=== PATIENT | female | born 1950 | race Caucasian/White ===

== ENCOUNTER 2017-03-01 10:15 | Inpatient (IN) | payer MEDICARE, OTHER ==
[~2017-03-01] VITALS: Ht 167.6 cm; Wt 70.6 kg
[~2017-03-01 10:15] MED LIST: ALBU3IS INH; ALBU90OI INH; ALBU90OI6 INH; ASPI325EC PO; ASPI81CH PO; ATOR80 PO; B-1100 MG PO; B-COMPLEX PLUS1 EACH PO; BUDE6HFA INH; BUPR150ER; BUPR150ER PO; CENTRUM SILVER1 EAC2 PO; CEPH500 PO; CHLO25 PO; CILO50 PO; CLOP75 PO; CYCL10 PO; Cyclobenzaprine5 MG PO; DICL75ER PO; FOLI1 PO; FURO20 PO; HYDR1TAB94; LEVSOD50 PO; METHI10; METO25 PO; NIFE30ER PO; OXYACE5T PO; PLETAL100 MG PO; Prinivil10 MG; THIA100 PO; TRAM50 PO; VARE1 PO; VITAMIN D31000 UNIT PO; [UNRECOGNIZED DRUG - REMARK]
[2017-03-01] MEDS ORDERED: BUDE6HFA INH (11:59)
[2017-03-01] MEDS ORDERED: Methimazole5 MG PO (12:00)
[2017-03-02 04:34] LABS: BASOPHILS ABSOLUTE AUTO 0.03 K/mm3 (0.00-0.23); BASOPHILS PERCENT AUTO 0 % (0-2); EOSINOPHILS ABSOLUTE AUTO 0.07 K/mm3 (0.00-0.68); EOSINOPHILS PERCENT AUTO 1 % (0-6); Hematocrit 33.8 % (33.0-51.0); Hemoglobin 11.3 g/dL (11.5-16.0); IMMATURE GRAN ABSOLUTE AUTO 0.02 K/mm3 (0.00-0.10); IMMATURE GRAN PERCENT AUTO 0 % (0-1); LYMPHOCYTES PERCENT AUTO 28 % (21-46); MONOCYTES ABSOLUTE AUTO 0.76 K/mm3 (0.16-1.47); MONOCYTES PERCENT AUTO 6 % (4-13); Mean Corpuscular HGB 32.8 pg (26.0-34.0); Mean Corpuscular HGB Conc 33.4 g/dL (31.5-36.5); Mean Corpuscular Volume 98 fL (80-100); Mean Platelet Volume 9.6 fL (9.1-12.4); NEUTROPHILS ABSOLUTE AUTO 8.28 K/mm3 (1.96-9.15); NEUTROPHILS PERCENT AUTO 65 % (41-73); Platelet Count 304 K/mm3 (150-400); RDW Coefficient Variation 13.8 % (11.7-14.2); RDW Standard Deviation 49.6 fL (35.1-46.3); Red Blood Cell Count 3.44 M/mm3 (3.80-5.20); White Blood Cell Count 12.66 K/mm3 (4.00-11.30)
[2017-03-02 05:01] LABS: Anion Gap 9 mmol/L (6-16); Blood Urea Nitrogen 7 mg/dL (8-24); CO2, Blood 22 mmol/L (21-32); Chloride, Blood 112 mmol/L (98-108); Creatinine, Blood 0.59 mg/dL (0.40-1.00); Glomerular Filtration Rate >60 (60-); Glucose, Blood 101 mg/dL (70-99); Potassium, Blood 3.5 mmol/L (3.5-5.5); Sodium, Blood 143 mmol/L (136-145)
[2017-03-02] MEDS ORDERED: CLOP75 PO (13:36)
[2017-06-09] MEDS ORDERED: FOLI1 PO (09:00)
[2017-06-09] MEDS ORDERED: METHI10 PO (09:00)
[2017-06-09] MEDS ORDERED: TOCO1000 PO (09:01)
[2017-06-09] MEDS ORDERED: ASCO500 PO (09:01)
[2017-06-09] MEDS ORDERED: ERGO400 PO (09:02)
== END 2017-03-02 14:50 | disposition home or self-care (01) | DRG 254 ==
LOC: MHTC 10:15 → ICUW 14:08 → MHTC 16:57 → ICUW 03-02 14:50
PROVIDERS: Internal Medicine Interventional Cardiology
PROC: 047M3D1 Dilation of Right Popliteal Artery with Intraluminal Device, using Drug-Coated Balloon, Percutaneous Approach (ICD-10-PCS; principal; 2017-03-01)
PROC: 047K3D6 (ICD-10-PCS; principal; 2017-03-01)
PROC: 047P3Z1 Dilation of Right Anterior Tibial Artery using Drug-Coated Balloon, Percutaneous Approach (ICD-10-PCS; principal; 2017-03-01)
DX: I70.245 Atherosclerosis of native arteries of left leg with ulceration of other part of foot (principal); J44.9 Chronic obstructive pulmonary disease, unspecified; E78.5 Hyperlipidemia, unspecified; F17.210 Nicotine dependence, cigarettes, uncomplicated; I10 Essential (primary) hypertension; L08.89 Other specified local infections of the skin and subcutaneous tissue; Z23 Encounter for immunization
CPT/HCPCS: 36415; 37227; 37229; 37232; 37233; 75710; 75774; 76937; 80048; 85025; 85347; 85610; 85730; 94640; 94760; 99152; 99153; C1725; C1757; C1769; C1876; C1885; C1887; C1894; C2623; G0008; J0461; J1644; J2060; J2250; J2720; J3010; J7030; J7040; Q2038; Q9967

== ENCOUNTER 2017-03-15 07:45 | Day surgery (SDC) | payer MEDICARE, OTHER ==
[~2017-03-15 07:45] MED LIST changes: +Methimazole5 MG PO
[2017-06-09] MEDS ORDERED: FOLI1 PO (09:00)
[2017-06-09] MEDS ORDERED: METHI10 PO (09:00)
[2017-06-09] MEDS ORDERED: TOCO1000 PO (09:01)
[2017-06-09] MEDS ORDERED: ASCO500 PO (09:01)
[2017-06-09] MEDS ORDERED: ERGO400 PO (09:02)
== END 2017-03-15 09:36 | disposition home or self-care (01) ==
LOC: WOUND 07:45
PROC: 0HBMXZZ Excision of Right Foot Skin, External Approach (ICD-10-PCS; principal; 2017-03-15)
DX: Z48.00 Encounter for change or removal of nonsurgical wound dressing (principal); I70.201 Unspecified atherosclerosis of native arteries of extremities, right leg; L97.511 Non-pressure chronic ulcer of other part of right foot limited to breakdown of skin; J43.9 Emphysema, unspecified; I10 Essential (primary) hypertension; Z88.5 Allergy status to narcotic agent; Z87.891 Personal history of nicotine dependence
CPT/HCPCS: G0463

== ENCOUNTER 2017-03-22 00:33 | Day surgery (SDC) | payer MEDICARE, OTHER ==
[2017-06-09] MEDS ORDERED: FOLI1 PO (09:00)
[2017-06-09] MEDS ORDERED: METHI10 PO (09:00)
[2017-06-09] MEDS ORDERED: ASCO500 PO (09:01)
[2017-06-09] MEDS ORDERED: TOCO1000 PO (09:01)
[2017-06-09] MEDS ORDERED: ERGO400 PO (09:02)
== END 2017-03-22 22:45 | disposition home or self-care (01) ==
LOC: WOUND 00:33
PROC: 0HBMXZZ Excision of Right Foot Skin, External Approach (ICD-10-PCS; principal; 2017-03-22)
DX: Z48.00 Encounter for change or removal of nonsurgical wound dressing (principal); L97.812 Non-pressure chronic ulcer of other part of right lower leg with fat layer exposed; I70.201 Unspecified atherosclerosis of native arteries of extremities, right leg; J43.9 Emphysema, unspecified; I10 Essential (primary) hypertension; I73.9 Peripheral vascular disease, unspecified
CPT/HCPCS: G0463

== ENCOUNTER 2017-03-29 10:00 | Day surgery (SDC) | payer MEDICARE, OTHER ==
[2017-06-09] MEDS ORDERED: FOLI1 PO (09:00)
[2017-06-09] MEDS ORDERED: METHI10 PO (09:00)
[2017-06-09] MEDS ORDERED: TOCO1000 PO (09:01)
[2017-06-09] MEDS ORDERED: ASCO500 PO (09:01)
[2017-06-09] MEDS ORDERED: ERGO400 PO (09:02)
== END 2017-03-29 11:10 | disposition home or self-care (01) ==
LOC: WOUND 10:00
DX: Z48.00 Encounter for change or removal of nonsurgical wound dressing (principal); I70.201 Unspecified atherosclerosis of native arteries of extremities, right leg; J43.9 Emphysema, unspecified; I10 Essential (primary) hypertension; I73.9 Peripheral vascular disease, unspecified; L97.812 Non-pressure chronic ulcer of other part of right lower leg with fat layer exposed
CPT/HCPCS: G0463

== ENCOUNTER 2017-06-13 08:40 | Day surgery (SDC) | payer MEDICARE, OTHER ==
[~2017-06-13] VITALS: Ht 167.6 cm; Wt 74.4 kg
[~2017-06-13 08:40] MED LIST changes: +ASCO500 PO; +ERGO400 PO; +METHI10 PO; +TOCO1000 PO
== END 2017-06-13 22:57 | disposition home or self-care (01) ==
LOC: ORSCMMR 08:40 → ORD 10:00 → ORSCMMR 22:57
PROVIDERS: Internal Medicine Gastroenterology
PROC: 0DBK8ZX Excision of Ascending Colon, Via Natural or Artificial Opening Endoscopic, Diagnostic (ICD-10-PCS; principal; 2017-06-13 10:00)
DX: Z12.11 Encounter for screening for malignant neoplasm of colon (principal); D12.2 Benign neoplasm of ascending colon; K64.8 Other hemorrhoids; E05.90 Thyrotoxicosis, unspecified without thyrotoxic crisis or storm; K57.30 Diverticulosis of large intestine without perforation or abscess without bleeding; I10 Essential (primary) hypertension; J44.9 Chronic obstructive pulmonary disease, unspecified; F17.210 Nicotine dependence, cigarettes, uncomplicated; Z79.01 Long term (current) use of anticoagulants; Z79.82 Long term (current) use of aspirin; Z79.899 Other long term (current) drug therapy
CPT/HCPCS: 88305; J7120

== ENCOUNTER → 2017-07-20 | Outpatient (CLI) | payer MEDICARE, OTHER ==
[2017-07-20 17:49] LABS: BASOPHILS ABSOLUTE AUTO 0.06 K/mm3 (0.00-0.23); BASOPHILS PERCENT AUTO 1 % (0-2); EOSINOPHILS ABSOLUTE AUTO 0.25 K/mm3 (0.00-0.68); EOSINOPHILS PERCENT AUTO 3 % (0-6); Hematocrit 37.5 % (33.0-51.0); Hemoglobin 12.3 g/dL (11.5-16.0); IMMATURE GRAN ABSOLUTE AUTO 0.01 K/mm3 (0.00-0.10); IMMATURE GRAN PERCENT AUTO 0 % (0-1); LYMPHOCYTES ABSOLUTE AUTO 4.05 K/mm3 (0.84-5.20); LYMPHOCYTES PERCENT AUTO 53 % (21-46); MONOCYTES ABSOLUTE AUTO 0.52 K/mm3 (0.16-1.47); MONOCYTES PERCENT AUTO 7 % (4-13); Mean Corpuscular HGB 32.4 pg (26.0-34.0); Mean Corpuscular HGB Conc 32.8 g/dL (31.5-36.5); Mean Corpuscular Volume 99 fL (80-100); Mean Platelet Volume 10.1 fL (9.1-12.4); NEUTROPHILS ABSOLUTE AUTO 2.78 K/mm3 (1.96-9.15); NEUTROPHILS PERCENT AUTO 36 % (41-73); Platelet Count 337 K/mm3 (150-400); RDW Coefficient Variation 13.7 % (11.7-14.2); RDW Standard Deviation 50.5 fL (35.1-46.3); White Blood Cell Count 7.67 K/mm3 (4.00-11.30)
[2017-07-20 18:44] LABS: Free Thyroxine 0.92 ng/dL (0.70-1.60)
[2017-07-20 18:48] LABS: Alanine Aminotransfer (ALT/SGP 28 U/L (12-78); Albumin, Blood 3.9 g/dL (3.4-5.0); Albumin/Globulin Ratio 1.3 (0.8-1.8); Alk Phos 86 U/L (50-136); Anion Gap 7 mmol/L (6-16); Aspartate Aminotrans (AST/SGOT 20 U/L (12-37); Bilirubin, Total 0.4 mg/dL (0.1-1.0); Blood Urea Nitrogen 16 mg/dL (8-24); Bun/Creatinine Ratio 19.1 (12.0-20.0); CHOL/HDL RATIO 1.8; CO2, Blood 25 mmol/L (21-32); Calcium, Blood 9.2 mg/dL (8.5-10.1); Chloride, Blood 108 mmol/L (98-108); Cholesterol 191 mg/dL (50-200); Creatinine, Blood 0.84 mg/dL (0.40-1.00); Glomerular Filtration Rate >60 (60-); Glucose, Blood 79 mg/dL (70-99); HDL Cholesterol 104 mg/dL (>39); LDL/HDL RATIO 0.7; Low Density Lipoprotein Chol 72 mg/dL (0-110); Potassium, Blood 4.4 mmol/L (3.5-5.5); Sodium, Blood 140 mmol/L (136-145); Total Protein, Blood 6.9 g/dL (6.4-8.2); Triglycerides 76 mg/dL (30-160); Triiodothyronine, Free 2.68 pg/mL (2.18-3.98); Very Low Density Lipoprot Chol 15 mg/dL (6-32)
== END | disposition home or self-care (01) ==
LOC: LAB SHORT 08:23 → LAB 08:23
PROVIDERS: Nurse Practitioner Adult Health
DX: E78.5 Hyperlipidemia, unspecified (principal); E05.90 Thyrotoxicosis, unspecified without thyrotoxic crisis or storm; I10 Essential (primary) hypertension
CPT/HCPCS: 80053; 80061; 84439; 84443; 84481; 85025

== ENCOUNTER 2019-01-21 06:11 | Emergency (ER) | payer MEDICARE, OTHER ==
[~2019-01-21] VITALS: Ht 167.6 cm; Wt 72.6 kg
[~2019-01-21 06:11] MED LIST changes: +Centrum Silver1 EAC1 PO; -Prinivil10 MG; +Prinivil10 MG PO
[2019-01-21] MEDS ORDERED: CYCL10 PO (08:03)
== END 2019-01-21 08:15 | disposition home or self-care (01) ==
LOC: ER 06:11
DX: S16.1XXA Strain of muscle, fascia and tendon at neck level, initial encounter (principal); J44.9 Chronic obstructive pulmonary disease, unspecified; F17.200 Nicotine dependence, unspecified, uncomplicated; Z88.5 Allergy status to narcotic agent; Z79.899 Other long term (current) drug therapy; Z79.82 Long term (current) use of aspirin; Z79.02 Long term (current) use of antithrombotics/antiplatelets; X58.XXXA Exposure to other specified factors, initial encounter
CPT/HCPCS: 93005; 93010; A9270-GY; J1100

== ENCOUNTER → 2019-03-24 | Outpatient (CLI) | payer MEDICARE, OTHER ==
[2019-03-24 09:40] LABS: BASOPHILS ABSOLUTE AUTO 0.09 K/mm3 (0.00-0.23); BASOPHILS PERCENT AUTO 1 % (0-2); EOSINOPHILS ABSOLUTE AUTO 0.18 K/mm3 (0.00-0.68); EOSINOPHILS PERCENT AUTO 2 % (0-6); Hematocrit 36.1 % (33.0-51.0); Hemoglobin 11.4 g/dL (11.5-16.0); Mean Corpuscular HGB 32.1 pg (26.0-34.0); Mean Corpuscular HGB Conc 31.6 g/dL (31.5-36.5); Mean Corpuscular Volume 102 fL (80-100); Mean Platelet Volume 9.8 fL (9.1-12.4); Platelet Count 471 K/mm3 (150-400); RDW Coefficient Variation 13.6 % (11.7-14.2); RDW Standard Deviation 51.3 fL (35.1-46.3); Red Blood Cell Count 3.55 M/mm3 (3.80-5.20); White Blood Cell Count 11.28 K/mm3 (4.00-11.30)
[2019-03-24 09:41] LABS: IMMATURE GRAN ABSOLUTE AUTO 0.01 K/mm3 (0.00-0.10); IMMATURE GRAN PERCENT AUTO 0 % (0-1); LYMPHOCYTES ABSOLUTE AUTO 7.48 K/mm3 (0.84-5.20); LYMPHOCYTES PERCENT AUTO 66 % (21-46); MONOCYTES ABSOLUTE AUTO 0.46 K/mm3 (0.16-1.47); MONOCYTES PERCENT AUTO 4 % (4-13); NEUTROPHILS ABSOLUTE AUTO 3.06 K/mm3 (1.96-9.15); NEUTROPHILS PERCENT AUTO 27 % (41-73)
[2019-03-24 09:56] LABS: C-REACTIVE PROTEIN, EXT RANGE <0.290 mg/dL (0.000-0.300); Uric Acid, Blood 6.7 mg/dL (2.6-6.0)
== END | disposition home or self-care (01) ==
LOC: LAB 07:58 → LAB SHORT 07:58
PROVIDERS: Nurse Practitioner Family
DX: M79.671 Pain in right foot (principal)
CPT/HCPCS: 84550; 85025; 85651; 86140

== ENCOUNTER → 2019-04-20 | Outpatient (CLI) | payer MEDICARE, OTHER | END | disposition home or self-care (01) | LOC: LAB 12:45 → LAB SHORT 12:45 | DX: L08.9 Local infection of the skin and subcutaneous tissue, unspecified (principal) | CPT/HCPCS: 87070; 87075; 87077; 87186; 87205 ==

== ENCOUNTER 2019-05-09 15:28 | Inpatient (IN) | payer MEDICARE, OTHER ==
[~2019-05-09] VITALS: Ht 167.6 cm; Wt 68.0 kg
[~2019-05-09 15:28] MED LIST changes: -ERGO400 PO; -METHI10 PO; +Tapazole5 MG PO; +VITAMIN E400 UNI1 PO
[2019-05-09] MEDS ORDERED: Daily Multiple1 EACH PO (16:18)
[2019-05-09] MEDS ORDERED: Loratadine10 MG PO (16:21)
[2019-05-09] MEDS ORDERED: ACET500 PO (16:22)
[2019-05-09 16:25] LABS: Hematocrit 37.8 % (33.0-51.0); Mean Corpuscular HGB 32.1 pg (26.0-34.0); Mean Corpuscular HGB Conc 31.7 g/dL (31.5-36.5); Mean Corpuscular Volume 101 fL (80-100); Mean Platelet Volume 9.7 fL (9.1-12.4); Platelet Count 407 K/mm3 (150-400); RDW Coefficient Variation 14.6 % (11.7-14.2); RDW Standard Deviation 54.3 fL (35.1-46.3); Red Blood Cell Count 3.74 M/mm3 (3.80-5.20); White Blood Cell Count 15.44 K/mm3 (4.00-11.30)
[2019-05-09 16:42] LABS: Alanine Aminotransfer (ALT/SGP 25 U/L (12-78); Albumin, Blood 4.2 g/dL (3.4-5.0); Albumin/Globulin Ratio 1.4 (0.8-1.8); Alk Phos 87 U/L (50-136); Anion Gap 7 mmol/L (6-16); Aspartate Aminotrans (AST/SGOT 25 U/L (12-37); Bilirubin, Total 0.3 mg/dL (0.1-1.0); Blood Urea Nitrogen 15 mg/dL (8-24); Bun/Creatinine Ratio 20.3 (12.0-20.0); CO2, Blood 22 mmol/L (21-32); Calcium, Blood 10.1 mg/dL (8.5-10.1); Chloride, Blood 103 mmol/L (98-108); Creatinine, Blood 0.74 mg/dL (0.40-1.00); Globulin, Blood 3.1 g/dL (2.2-4.0); Glomerular Filtration Rate >60 (60-); Glucose, Blood 93 mg/dL (70-99); Potassium, Blood 4.5 mmol/L (3.5-5.5); Sodium, Blood 132 mmol/L (136-145); Total Protein, Blood 7.3 g/dL (6.4-8.2)
[2019-05-09 17:26] LABS: BASOPHILS PERCENT MAN 0 % (0-2); EOSINOPHILS ABSOLUTE MAN 0.15 K/mm3 (0.00-0.68); EOSINOPHILS PERCENT MAN 1 % (0-6); LYMPHOCYTES ABSOLUTE MAN 11.88 K/mm3 (0.84-5.20); LYMPHOCYTES PERCENT MAN 77 % (21-46); MONOCYTES PERCENT MAN 0 % (4-13); NEUTROPHILS ABSOLUTE MAN 3.39 K/mm3 (1.96-9.15); SEG NEUTROPHILS PERCENT MAN 22 % (41-73); TOTAL CELLS COUNTED 100
[2019-05-09 17:53] LABS: International Normalized Ratio 0.95; Prothrombin Time Results 10.2 Sec (9.7-11.5)
--- NOTE | 2019-05-09 20:16 | NUR ---
2009 PT ARRIVED VIA CART TO ROOM AND TRANSFERRED VIA SELF TO BED; RIGHT FOOT #2 DIGIT MEDIAL ASPECT AT TIP NAIL BLACK; RIGHT FOOT #3 DIGIT BLACK; RIGHT ANKLE RED AND HOT TO TOUCH; DENIES NEED FOR PAIN MEDS AT THIS TIME; REPORT RECEIVED FROM CASA DSOUZA VIA ER; HEPARIN AT 20.4 ML/HR VIA PUMP.
[2019-05-10 02:06] LABS: Hematocrit 34.2 % (33.0-51.0); Hemoglobin 10.9 g/dL (11.5-16.0); Mean Corpuscular HGB Conc 31.9 g/dL (31.5-36.5); Mean Corpuscular Volume 100 fL (80-100); Mean Platelet Volume 9.5 fL (9.1-12.4); Platelet Count 383 K/mm3 (150-400); RDW Coefficient Variation 14.7 % (11.7-14.2); Red Blood Cell Count 3.41 M/mm3 (3.80-5.20); White Blood Cell Count 16.21 K/mm3 (4.00-11.30)
[2019-05-10 02:35] LABS: Anion Gap 5 mmol/L (6-16); Blood Urea Nitrogen 12 mg/dL (8-24); Bun/Creatinine Ratio 18.7 (12.0-20.0); CO2, Blood 22 mmol/L (21-32); Calcium, Blood 8.9 mg/dL (8.5-10.1); Chloride, Blood 109 mmol/L (98-108); Creatinine, Blood 0.64 mg/dL (0.40-1.00); Glomerular Filtration Rate >60 (60-); Glucose, Blood 115 mg/dL (70-99); Potassium, Blood 4.2 mmol/L (3.5-5.5); Sodium, Blood 136 mmol/L (136-145)
--- NOTE | 2019-05-10 06:04 | NUR ---
SHIFT SUMMARY: 69 Y/O FEMALE RESTED COMFORTABLY ALL SHIFT; PT C/O RIGHT FOOT PAIN RATED 8/10 WITH NORCO 5/325MG PO GIVEN WITH RELIEF FELT; THIS NURSE INITIALLY APPLIED DRESSING TO RIGHT FOOT FOR COMFORT WHICH PATIENT PROMPTLY REMOVED SHE VOICED IT MADE THE PAIN WORSE; ALERT AND ORIENTED X 4; HEPARIN INFUSING WITH NO S/S BLEEDING; DENIES NAUSEA; BED LOW POSITION WITH CALL LIGHT AT SIDE.
--- NOTE | 2019-05-10 11:20 | NUR ---
Patient is sitting on EoB and alert. Patient tells me about her medical history, her smoking habit and her current worries. I listen empathically, normalize patient's experience and provide pre-surgery prayer. Patient responds well and shows signs of reduced stress. I will continue to remain avialable to patient and family.
--- NOTE | 2019-05-10 13:36 | NUR ---
PT TO CARDIAC CATH TECHNOLOGIST VIA LISA
--- NOTE | 2019-05-10 18:37 | NUR ---
SHIFT NOTE PT ARRIVED AT 1715 FROM GROUP PRACTICE PEDIATRICIAN. PT HAD BALLOONING TO RT FEMORAL ARTERY, FAILED SITE NOTED TO RT TIBIAL, AND SUCCESSFUL SITE TO RT GROIN. SITE IS SOFT AND PALPABLE WITHOUT PAIN NOTED TO PALPATION. NO ACTIVE BLEEDING FROM EITHER SITE. MINX DEVICE USED TO CLOSE GROINACCESS. PT AWAKENS TO VERBAL STIMULI IS DROWSY. RT FOOT IS PINK WITH BLACKENED 3RD TOE WHICH IS NOT NEW, BUT PEDAL PULSES HAVE BEEN RESTORED TO RT FOOT THAT WERE ABSENT PRIOR TO INTERVENTION. PT VERBALIZES THAT SHE DOES NOT HAVE PAIN
--- NOTE | 2019-05-11 01:21 | NUR ---
LATE ENTRY ASSUMPTION OF CARE @ APPROXIMATELY 192. CASA DEAN WAS TOLD BY ASSET MANAGEMENT ANALYST THAT PATIENT WOULD NO LONGER BE ON HEPARIN AND WAS NOT SENT BACK UP WITH PATIENT. PHSYICIAN IN TO SEE PATIENT LATER ON AROUND 2129 AND EXPRESSED THE NEED FOR PATIENT TO BE PLACED BACK ON HEPARIN. HEPARIN CONSULT RE-ORDERED WITH VERIFICATION FROM PHYSICIAN BY CHARGE, RN @ 2154.
[2019-05-11 06:14] LABS: Hematocrit 33.6 % (33.0-51.0); Hemoglobin 10.9 g/dL (11.5-16.0); Mean Corpuscular HGB 32.7 pg (26.0-34.0); Mean Corpuscular HGB Conc 32.4 g/dL (31.5-36.5); Mean Corpuscular Volume 101 fL (80-100); Mean Platelet Volume 9.5 fL (9.1-12.4); Platelet Count 393 K/mm3 (150-400); RDW Coefficient Variation 14.9 % (11.7-14.2); RDW Standard Deviation 55.6 fL (35.1-46.3); Red Blood Cell Count 3.33 M/mm3 (3.80-5.20); White Blood Cell Count 15.56 K/mm3 (4.00-11.30)
[2019-05-11 06:37] LABS: Anion Gap 5 mmol/L (6-16); Blood Urea Nitrogen 7 mg/dL (8-24); Bun/Creatinine Ratio 12.5 (12.0-20.0); CO2, Blood 23 mmol/L (21-32); Calcium, Blood 9.1 mg/dL (8.5-10.1); Chloride, Blood 110 mmol/L (98-108); Creatinine, Blood 0.56 mg/dL (0.40-1.00); Glomerular Filtration Rate >60 (60-); Glucose, Blood 97 mg/dL (70-99); Sodium, Blood 138 mmol/L (136-145)
--- NOTE | 2019-05-11 06:50 | NUR ---
SHIFT SUMMARY A/O, ABLE TO MAKE NEEDS KNOWN. COOPERATIVE WITH CARE. CALLS AND ANSWERS QUESTIONS APPROPRIATELY. C/O PAIN/DISCOMFORT TO R TOE/FOOT; MEDICATED PER EMAR. ATTEMPTED TO GET UP EARLIER IN THE NIGHT; AFTER RETURNING TO BED, NOTED PROTRUDING TO R GROIN WHERE SURGICAL PROCEDURE HAD OCCURED. RN WHOM HAD FOUND HER; PLACED PRESSURE TO SITE FOR 15 MINUTES. BRIM STRETCHER, CALLED AND ALERTED DR. PATEL (SEE PREV LAURENT NOTE). AFTER EPISODE PATIENT APPEARED TO REST. VSS/AFEBRILE. NO OTHER ACUTE CHANGES NOTED. HAS BEEN INSTRUCTED TO ROLL ONLY AND USE OF THE BED SAENZ UNTIL PHYSICIAN ASSESSMENT IN AM. BED IN LOWEST POSITION; ALARM ON. CALL LIGHT WITHIN REACH. REPORT TO ONCOMING RN.
[2019-05-11 07:09] LABS: BASOPHILS PERCENT MAN 0 % (0-2); EOSINOPHILS ABSOLUTE MAN 0.15 K/mm3 (0.00-0.68); EOSINOPHILS PERCENT MAN 1 % (0-6); LYMPHOCYTES ABSOLUTE MAN 8.86 K/mm3 (0.84-5.20); LYMPHOCYTES PERCENT MAN 57 % (21-46); MONOCYTES ABSOLUTE MAN 0.46 K/mm3 (0.16-1.47); MONOCYTES PERCENT MAN 3 % (4-13); NEUTROPHILS ABSOLUTE MAN 6.06 K/mm3 (1.96-9.15); SEG NEUTROPHILS PERCENT MAN 39 % (41-73); TOTAL CELLS COUNTED 100
--- NOTE | 2019-05-11 14:17 | NUR ---
REPORT TO LIZETH CORMIER ON MEDICAL FLOOR
--- NOTE | 2019-05-11 14:57 | NUR ---
TRANSFER NOTE- TELEPHONE REPORT RECIEVED PRIOR TO PT TRANSFER TO MEDICAL FLOOR. PT ALERT AND ORIENTED, PT REQUESTED THAT STAFF ASK FOR A CHANGE IN HER PAIN MEDICATION INCREASING FROM Q6 TO Q4. PAIN APPEARS TO BE WELL MANAGED AT THIS TIME, WILL CTM.
--- NOTE | 2019-05-11 18:33 | NUR ---
PT TRANSFERED TO ICU 8 PICC LINE PLACEMENT CONFIRMED BALLER TENDER WHO PLACED PICC ESCORTED PT AND HER SPOUSE DOWN TO ICU. PT HAD NO S&S OF DISTRESS NOTED AT THE TIME OF TRANSFER SBP GREATER THAN 140 MID[place]RENE HELD.
--- NOTE | 2019-05-11 20:00 | NUR ---
SHIFT SUMMARY- PT HAS HAD NO ACUTE CHANGE SINCE HER ARRIVAL ON MEDICAL FLOOR. PT HAS A PALPABLE PULSE IN THE RIGHT FOOT, RLE JUST HAD A REVASCULARIZATION DONE, INSERTION SITES IN THE FOOT AND THE GROIN SHOW MINIMAL BLEEDING AT THE SITE OF THE GROIN. PER REPORT THE PT GOT UP POST OP AND TRIED TO TAKE HERSELF TO THE BATHROOM. THIS CAUSED SOME BLEEDING AND REQUIRED PRESSURE AN INTERVENTION. NO SIGN OF INCREASED BLEEDING, VISIBLE BRUISING PRESENT. PASSED ALL ON IN BEDSIDE REPORT.
--- NOTE | 2019-05-12 05:31 | NUR ---
SHIFT SUMMARY PT CONTINUES TO REPORT PAIN TO R FOOT. MEDICATED X 2 W/ 1 TAB NORCO. PT WAS UPSET THIS EVENING ABOUT HER MEETING WITH DR. JOHNSTON YESTERDAY. SHE SEEMED TO BE UNDER THE IMPRESSION THAT NO OTHER OPTIONS WERE PRESENTED TO HER ASIDE FROM BELOW THE KNEE AMPUTATION. THE PT EXPRESSED HER WISH TO FOLLOW UP ON AN OUTPATIENT BASIS. PT WAS OVERALL, PLEASANT AND COOPERATIVE. [place]UL[place] [facility] [place] R GROIN SITE UNCHANGED THROUGHOUT THE NIGHT. WITH A SMALL AMOUNT OF BLOOD AT INSERTION SITE. R 3RD TOE DISCOLORED, BLACK IN COLOR. MOST OF FOOT WITH A SMALL AMOUNT OF REDNESS AND SWELLING. OTHERWISE NO ACUTE CHANGES. VITAL SIGNS STABLE. WILL CONTINUE TO MONITOR AND REPORT TO DAY RN.
[2019-05-12] MEDS ORDERED: HYDR1TAB94 PO (11:22)
[2019-05-12] MEDS ORDERED: XARELTO15 MG PO (11:23)
[2019-05-12] MEDS ORDERED: PANT20 PO (11:25)
== END 2019-05-12 13:00 | disposition home or self-care (01) | DRG 300 ==
LOC: ER 15:28 → MEDS 15:29 → PCU 05-10 17:17 → MEDS 05-11 14:30
PROVIDERS: Emergency Medicine; Hospitalist; Physician Assistant; ADMIT Internal Medicine
DX: I70.262 Atherosclerosis of native arteries of extremities with gangrene, left leg (principal); R65.10 Systemic inflammatory response syndrome (SIRS) of non-infectious origin without acute organ dysfunction; M10.9 Gout, unspecified; E03.9 Hypothyroidism, unspecified; I10 Essential (primary) hypertension; F17.210 Nicotine dependence, cigarettes, uncomplicated; J44.9 Chronic obstructive pulmonary disease, unspecified; D72.820 Lymphocytosis (symptomatic)
CPT/HCPCS: 36415; 37225; 37229; 37232; 73630; 75710; 76937; 80048; 80053; 85025; 85027; 85347; 85610; 85651; 85730; 93922; 94640; 94760; 96365; 96375; 96376; 99152; 99153; 99285-25; A9270; A9270-GY; C1714; C1725; C1769; C1887; C1894; G0378; J1170; J1200; J1644; J2060; J2250; J2405; J2720; J3010; J7030; J7040; Q9967

== ENCOUNTER → 2019-05-22 | Outpatient (CLI) | payer MEDICARE, OTHER ==
[~2019-05-22] MED LIST changes: +ACET500 PO; +Daily Multiple1 EACH PO; +HYDR1TAB94 PO; +Loratadine10 MG PO; +PANT20 PO; +XARELTO15 MG PO
== END | disposition home or self-care (01) ==
LOC: LAB 13:35 → LAB SHORT 13:35
DX: L08.9 Local infection of the skin and subcutaneous tissue, unspecified (principal)
CPT/HCPCS: 87070; 87075; 87077; 87186; 87205

== ENCOUNTER 2019-05-23 12:07 | Day surgery (SDC) | payer MEDICARE, OTHER | END 2019-05-23 22:45 | disposition home or self-care (01) | LOC: WOUND 12:07 | DX: S61.202A Unspecified open wound of right middle finger without damage to nail, initial encounter (principal); A49.9 Bacterial infection, unspecified; L98.9 Disorder of the skin and subcutaneous tissue, unspecified; I10 Essential (primary) hypertension; Z87.891 Personal history of nicotine dependence; X58.XXXA Exposure to other specified factors, initial encounter; J44.9 Chronic obstructive pulmonary disease, unspecified; E03.9 Hypothyroidism, unspecified; Z79.899 Other long term (current) drug therapy; Z79.02 Long term (current) use of antithrombotics/antiplatelets | CPT/HCPCS: 10140; G0463 ==

== ENCOUNTER 2019-05-25 02:55 | Day surgery (SDC) | payer MEDICARE, OTHER | END 2019-05-25 23:13 | disposition home or self-care (01) | LOC: WOUND 02:55 | DX: S61.201A Unspecified open wound of left index finger without damage to nail, initial encounter (principal); L98.9 Disorder of the skin and subcutaneous tissue, unspecified; A49.9 Bacterial infection, unspecified; I10 Essential (primary) hypertension; E03.9 Hypothyroidism, unspecified; Z87.891 Personal history of nicotine dependence; Z79.899 Other long term (current) drug therapy; Z79.02 Long term (current) use of antithrombotics/antiplatelets; Z79.01 Long term (current) use of anticoagulants | CPT/HCPCS: G0463 ==

== ENCOUNTER 2019-05-29 08:39 | Day surgery (SDC) | payer MEDICARE, OTHER | END 2019-05-29 22:52 | disposition home or self-care (01) | LOC: WOUND 08:39 | DX: S61.201A Unspecified open wound of left index finger without damage to nail, initial encounter (principal); L98.9 Disorder of the skin and subcutaneous tissue, unspecified; J44.9 Chronic obstructive pulmonary disease, unspecified; I10 Essential (primary) hypertension; E03.9 Hypothyroidism, unspecified; Z87.891 Personal history of nicotine dependence; Z79.899 Other long term (current) drug therapy; Z79.02 Long term (current) use of antithrombotics/antiplatelets; Z79.01 Long term (current) use of anticoagulants | CPT/HCPCS: 87071; 87075; 87205 ==

== ENCOUNTER 2019-05-31 00:58 | Day surgery (SDC) | payer MEDICARE, OTHER | END 2019-05-31 22:47 | disposition home or self-care (01) | LOC: WOUND 00:58 | DX: S61.201A Unspecified open wound of left index finger without damage to nail, initial encounter (principal); L98.9 Disorder of the skin and subcutaneous tissue, unspecified; J44.9 Chronic obstructive pulmonary disease, unspecified; I10 Essential (primary) hypertension; E03.9 Hypothyroidism, unspecified; Z87.891 Personal history of nicotine dependence; Z79.899 Other long term (current) drug therapy; Z79.02 Long term (current) use of antithrombotics/antiplatelets; Z79.01 Long term (current) use of anticoagulants | CPT/HCPCS: G0463 ==

== ENCOUNTER 2019-06-04 01:28 | Day surgery (SDC) | payer MEDICARE, OTHER | END 2019-06-04 22:40 | disposition home or self-care (01) | LOC: WOUND 01:28 | DX: S61.201A Unspecified open wound of left index finger without damage to nail, initial encounter (principal); L98.9 Disorder of the skin and subcutaneous tissue, unspecified; I10 Essential (primary) hypertension; J44.9 Chronic obstructive pulmonary disease, unspecified; E03.9 Hypothyroidism, unspecified; Z87.891 Personal history of nicotine dependence; Z79.899 Other long term (current) drug therapy; Z79.51 Long term (current) use of inhaled steroids; Z79.02 Long term (current) use of antithrombotics/antiplatelets; X58.XXXA Exposure to other specified factors, initial encounter ==

== ENCOUNTER 2019-06-13 08:14 | Inpatient (IN) | payer MEDICARE, OTHER ==
[~2019-06-13] VITALS: Ht 167.6 cm; Wt 68.9 kg
[2019-06-13 10:03] LABS: BASOPHILS ABSOLUTE AUTO 0.05 K/mm3 (0.00-0.23); BASOPHILS PERCENT AUTO 0 % (0-2); EOSINOPHILS ABSOLUTE AUTO 0.02 K/mm3 (0.00-0.68); EOSINOPHILS PERCENT AUTO 0 % (0-6); Hematocrit 28.9 % (33.0-51.0); Hemoglobin 9.1 g/dL (11.5-16.0); IMMATURE GRAN PERCENT AUTO 1 % (0-1); LYMPHOCYTES ABSOLUTE AUTO 5.04 K/mm3 (0.84-5.20); LYMPHOCYTES PERCENT AUTO 26 % (21-46); MONOCYTES ABSOLUTE AUTO 0.83 K/mm3 (0.16-1.47); MONOCYTES PERCENT AUTO 4 % (4-13); Mean Corpuscular HGB 31.7 pg (26.0-34.0); Mean Corpuscular HGB Conc 31.5 g/dL (31.5-36.5); Mean Corpuscular Volume 101 fL (80-100); Mean Platelet Volume 8.9 fL (9.1-12.4); NEUTROPHILS ABSOLUTE AUTO 13.25 K/mm3 (1.96-9.15); NEUTROPHILS PERCENT AUTO 69 % (41-73); Platelet Count 639 K/mm3 (150-400); RDW Coefficient Variation 15.5 % (11.7-14.2); RDW Standard Deviation 57.3 fL (35.1-46.3); Red Blood Cell Count 2.87 M/mm3 (3.80-5.20); White Blood Cell Count 19.29 K/mm3 (4.00-11.30)
[2019-06-13 10:22] LABS: Anion Gap 9 mmol/L (6-16); Blood Urea Nitrogen 20 mg/dL (8-24); Bun/Creatinine Ratio 27.4 (12.0-20.0); CO2, Blood 23 mmol/L (21-32); Chloride, Blood 105 mmol/L (98-108); Creatinine, Blood 0.73 mg/dL (0.40-1.00); Glomerular Filtration Rate >60 (60-); Glucose, Blood 111 mg/dL (70-99); Potassium, Blood 4.1 mmol/L (3.5-5.5); Sodium, Blood 137 mmol/L (136-145)
--- NOTE | 2019-06-13 12:00 | NUR ---
ADMIT NOTE PT ARRIVES, ALERT & ORIENTED. ABLE TO USE BEDPAN EASILY. (UNAWARE OF UA ORDER AT THIS TIME). PT HAS 2 BLACK, DRY TOES ON RLE 2ND AND 3RD TOE. HAS GAUZE ON SEVERAL TIPS OF HER FINGERS AND STATES THEY ARE NECROTIC WELL. SHE WAS SUPPOSE TO HAVE AN OUTPATIENT APPOINTMENT TODAY TO HAVE A PROCEDURE DONE FOR HER FINGERS.
--- NOTE | 2019-06-13 16:35 | NUR ---
Pt resting in bed with her eyes closed upon arrival. Pt appears to be resting well and does not respond to moderate verbal stimuli. Pt appears comfortable with no S/S of distress at this time. Spoke with Bedside RN Magdalena and discussed case. Magdalena reports no concerns at this time. Pt scheduled for surgery tomorrow. Palliative Care will F/U with Pt for Advanced Care Planning.
--- NOTE | 2019-06-13 19:48 | NUR ---
SHIFT SUMMARY PT HAS DONE WELL SINCE ARRIVAL TO FLOOR. PLAN FOR OR TOMORROW.
[2019-06-14 03:54] LABS: BASOPHILS ABSOLUTE AUTO 0.06 K/mm3 (0.00-0.23); BASOPHILS PERCENT AUTO 0 % (0-2); EOSINOPHILS ABSOLUTE AUTO 0.19 K/mm3 (0.00-0.68); EOSINOPHILS PERCENT AUTO 1 % (0-6); Hematocrit 25.5 % (33.0-51.0); Mean Corpuscular HGB 31.1 pg (26.0-34.0); Mean Corpuscular HGB Conc 31.4 g/dL (31.5-36.5); Mean Corpuscular Volume 99 fL (80-100); Platelet Count 587 K/mm3 (150-400); RDW Coefficient Variation 15.4 % (11.7-14.2); Red Blood Cell Count 2.57 M/mm3 (3.80-5.20); White Blood Cell Count 15.31 K/mm3 (4.00-11.30)
[2019-06-14 03:56] LABS: IMMATURE GRAN ABSOLUTE AUTO 0.08 K/mm3 (0.00-0.10); IMMATURE GRAN PERCENT AUTO 1 % (0-1); LYMPHOCYTES ABSOLUTE AUTO 6.23 K/mm3 (0.84-5.20); LYMPHOCYTES PERCENT AUTO 41 % (21-46); MONOCYTES ABSOLUTE AUTO 1.07 K/mm3 (0.16-1.47); MONOCYTES PERCENT AUTO 7 % (4-13); NEUTROPHILS ABSOLUTE AUTO 7.68 K/mm3 (1.96-9.15); NEUTROPHILS PERCENT AUTO 50 % (41-73)
[2019-06-14 04:07] LABS: International Normalized Ratio 1.03
--- NOTE | 2019-06-14 04:13 | NUR ---
SHIFT SUMMARY PT IS A/O X4. PT HAS BEEN BEDREST PER ORDERS. PT REPOSITIONS SELF WELL IN BED AND HAS BEEN ASSISTED WITH REPOSITIONING PRN. PAIN MANAGED WITH BOTH PO AND IV PAIN MEDS PER ORDERS. PT HAS BEEN NPO SINCE MIDNIGHT EXCEPT FOR PAIN MEDS. PT HAS C/O NERVE PAIN IN R TOES/FOOT; COOL COMPRESSES SEEM TO HELP WITH THE PAIN. ASSISTED WITH ADL'S PRN.
[2019-06-14 04:29] LABS: Magnesium, Blood 1.8 mg/dL (1.6-2.4)
[2019-06-14 04:30] LABS: Alanine Aminotransfer (ALT/SGP 31 U/L (12-78); Albumin, Blood 2.6 g/dL (3.4-5.0); Albumin/Globulin Ratio 0.8 (0.8-1.8); Alk Phos 87 U/L (50-136); Anion Gap 8 mmol/L (6-16); Aspartate Aminotrans (AST/SGOT 16 U/L (12-37); Bilirubin, Total 0.2 mg/dL (0.1-1.0); Blood Urea Nitrogen 21 mg/dL (8-24); Bun/Creatinine Ratio 25.5 (12.0-20.0); CO2, Blood 25 mmol/L (21-32); Calcium, Blood 8.8 mg/dL (8.5-10.1); Chloride, Blood 104 mmol/L (98-108); Creatinine, Blood 0.83 mg/dL (0.40-1.00); Globulin, Blood 3.1 g/dL (2.2-4.0); Glomerular Filtration Rate >60 (60-); Glucose, Blood 92 mg/dL (70-99); Potassium, Blood 4.1 mmol/L (3.5-5.5); Sodium, Blood 137 mmol/L (136-145); Total Protein, Blood 5.7 g/dL (6.4-8.2)
--- NOTE | 2019-06-14 11:30 | NUR ---
PATIENT TO DAY SURGERY AT THIS TIME.
--- NOTE | 2019-06-14 11:42 | NUR ---
INTO [facility] ADMISSION TO UNIT STARTED. History, Chart, Medications and Allergies reviewed before start of procedure.Lungs clear T/O to Auscultation.
--- NOTE | 2019-06-14 14:40 | NUR ---
06/14/19 1440 Iza Garza VERIFICATIONS: EDIT CHART.
--- NOTE | 2019-06-14 15:30 | NUR ---
PATIENT RETURNED TO ROOM FROM PACU ON BED. AWAKE. DENIES SOB, CP, NAUSEA. STATES L HIP PAIN 11/21. AQUACEL DRESSING TO L HIP D&I. WIGGLES FEET. VSS. BIOX 91% ON 2L O2 PER NC. LS DECREASED IN BASES. HRR. BT'S HYPO. PATIENT UP TO BSC PER REQUEST, VOIDED 400 ML. UA SENT. BACK TO BED, TAKING JELLO. WILL MEDICATE PER ORDER. CONT TO MONITOR.
[2019-06-14 16:19] LABS: Source, Urine Clean Catch
[2019-06-14 16:36] LABS: Appearance, Urine Clear (Clear); Bilirubin, Urine Neg (Neg); Blood, Urine 1+ (Neg); Color, Urine Yellow (P-Yellow); Glucose Qualitative, Urine Neg (Neg); Ketones, Urine 1+ (Neg); Leukocyte Esterase, Urine 1+ (Neg); Nitrite, Urine Neg (Neg); Protein, Urine Neg (Neg); Urobilinogen, Urine NORM (Normal)
--- NOTE | 2019-06-14 16:46 | NUR ---
PATIENT TOOK PO PAIN MED. SITTING UP IN BED, COOLING FEET/TOES W/ WATER. TAKING PHONE CALL AT THIS TIME. PATIENT STATES 'THIS ALL STARTED WITH GOUT.' CONT TO MONITOR.
[2019-06-14 16:49] LABS: Bacteria Few /hpf; Red Blood Cells, Urine 0-2 /hpf (0-2); Squamous Epithelial Cells Few /hpf (Few); White Blood Cells, Urine 0-2 /hpf (0-5)
--- NOTE | 2019-06-14 18:02 | NUR ---
SHIFT SUMMARY DR DELAROSA IN TO SEE; HE WILL CONTACT DR PATEL RE: POSSIBLE TOE AMPUTATIONS. PATIENT COMFORTABLE ON PO MED. TOLERATING PO. UP TO BSC, VOIUDING. AQUACEL DRESSING D&I. VSS. IS ENCOURAGED. CONT TO MONITOR.
[2019-06-15 03:45] LABS: BASOPHILS ABSOLUTE AUTO 0.02 K/mm3 (0.00-0.23); BASOPHILS PERCENT AUTO 0 % (0-2); EOSINOPHILS PERCENT AUTO 0 % (0-6); Hematocrit 26.8 % (33.0-51.0); Hemoglobin 8.4 g/dL (11.5-16.0); IMMATURE GRAN ABSOLUTE AUTO 0.09 K/mm3 (0.00-0.10); IMMATURE GRAN PERCENT AUTO 1 % (0-1); LYMPHOCYTES ABSOLUTE AUTO 5.66 K/mm3 (0.84-5.20); LYMPHOCYTES PERCENT AUTO 29 % (21-46); MONOCYTES ABSOLUTE AUTO 0.65 K/mm3 (0.16-1.47); MONOCYTES PERCENT AUTO 3 % (4-13); Mean Corpuscular HGB 31.1 pg (26.0-34.0); Mean Corpuscular HGB Conc 31.3 g/dL (31.5-36.5); Mean Corpuscular Volume 99 fL (80-100); NEUTROPHILS ABSOLUTE AUTO 13.43 K/mm3 (1.96-9.15); NEUTROPHILS PERCENT AUTO 68 % (41-73); Platelet Count 605 K/mm3 (150-400); RDW Coefficient Variation 15.5 % (11.7-14.2); White Blood Cell Count 19.85 K/mm3 (4.00-11.30)
[2019-06-15 04:07] LABS: Alanine Aminotransfer (ALT/SGP 28 U/L (12-78); Albumin, Blood 2.7 g/dL (3.4-5.0); Albumin/Globulin Ratio 0.8 (0.8-1.8); Alk Phos 89 U/L (50-136); Anion Gap 7 mmol/L (6-16); Aspartate Aminotrans (AST/SGOT 22 U/L (12-37); Bilirubin, Total 0.3 mg/dL (0.1-1.0); Blood Urea Nitrogen 17 mg/dL (8-24); Bun/Creatinine Ratio 22.9 (12.0-20.0); CO2, Blood 25 mmol/L (21-32); Calcium, Blood 8.9 mg/dL (8.5-10.1); Chloride, Blood 104 mmol/L (98-108); Creatinine, Blood 0.74 mg/dL (0.40-1.00); Globulin, Blood 3.2 g/dL (2.2-4.0); Glomerular Filtration Rate >60 (60-); Glucose, Blood 105 mg/dL (70-99); Potassium, Blood 4.5 mmol/L (3.5-5.5); Sodium, Blood 136 mmol/L (136-145); Total Protein, Blood 5.9 g/dL (6.4-8.2)
--- NOTE | 2019-06-15 04:44 | NUR ---
SHIFT SUMMARY PT IS A/O X4. NEEDS 1-2 ASSIST TO TRANSFER. PT HAS BEEN NPO SINCE MIDNIGHT PER ORDERS EXCEPT FOR PAIN MEDS. PAIN HAS BEEN DIFFICULT TO CONTROL; PT TAKING PO PAIN MEDS AND IV PAIN MEDS PER EMAR. DISCUSSED PAIN MANAGEMENT WITH PT. PT IS S/P L HIP PINNING BUT C/O PAIN PRIMARILY IN R TOES. DR. DELAROSA CONSULTED WITH PT YESTERDAY ABOUT R TOES. HAS BEEN UP TO CHAIR DURING THE SHIFT WITH FWW AND 2X ASSIST. ASSISTED WITH ADL'S PRN.
--- NOTE | 2019-06-15 10:17 | NUR ---
1010 TO DAY SURGERY
--- NOTE | 2019-06-15 10:24 | NUR ---
PT TRANSFERED TO [facility] FROM SURGICAL FLOOR VIA GURNEY. History, Chart, Medications and Allergies reviewed before start of procedure. Lungs clear T/O to Auscultation. Pre-Op teaching done. Pt verbalizes understanding. Patient confirms NPO status and agrees with scheduled surgery.
--- NOTE | 2019-06-15 12:14 | NUR ---
06/15/19 1214 Alma Claire PT ON SCHEDULED ANTIBIOTIC
--- NOTE | 2019-06-15 13:04 | NUR ---
PT REMAINS OUT OF ROOM IN SURGERY. REPORT GIVEN TO TAMELA BA RN WHO IS ASSUMING CARE OF PATIENT
--- NOTE | 2019-06-15 15:28 | NUR ---
Initial Visit: Palliative Care Consult for Advanced Care Planning. Pt resing in recliner chair and is A&O. Pt reports 8/10 pain. Pt denies nausea and SOB. Pt reports mild anxiety. Engaged in therapeutic conversation regarding Advance Care Planning. Pt reports living alone and at baseline is independent of her ADLs. Pt reports no children and her sister is down from [place] helping her as she recovers. Educated Pt on her chronic illness and trajectory of disease process. Discussed the importance of routine conversations with her PCP in developing multiple plans as her disease process takes its coarse. Discussed the importance of complying with recommendations and smoking cessation. Discussed the importance of having an advanced directive and appointing a healthcare circulation sales representative. Educated on life sustaining measures including risk factors. Provided AD and Pt will discuss with family before completing. No other concerns reported at this time. Palliative Care will remain available.
--- NOTE | 2019-06-15 15:34 | NUR ---
1320 PT RETURNED TO ROOM, TEARFUL WHICH SHE STATES IS TEARS OF GRATITUDE BECAUSE SHE IS NOT HAVING ANY PAIN. RIGHT FOOT DRESSING DRY AND INTACT. THIS RN IS CONTINUING CARE OF THIS PATIENT
--- NOTE | 2019-06-15 17:53 | NUR ---
SUMMARY PT SITTING UP IN CHAIR EATING DINNER. PT REPORTS PAIN TO RIGHT TOES IS MUCH BETTER POST OP THAN IT WAS PRE OP. RIGHT FOOT DRESSING DRY AND INTACT
--- NOTE | 2019-06-16 04:45 | NUR ---
SHIFT SUMMARY POD 2 L DONG HIP POD 1 R TOE AMPUTATIONS. PT AA0X4, VSS. MEDICATED FOR PAIN PER EMAR. PT REPORTS NUMBNESS IN RIGHT FOOT TO ANKLE. ABLE TO MOVE TOES, CAP REFILL GOOD. REPORTS PAIN IS BETTER SINCE TOES WERE AMPUTATED. PT ABLE TO TRANSFER WITH 1 ASSIST FWW. FOLLOWING HIP PRECAUTIONS. TOLERATING PO WELL. VOIDING. PT HANDS BANDAGED PRN SHE REQUESTED. DOING DRESSING CHANGES IND AT TIMES.
[2019-06-16 10:31] LABS: BASOPHILS ABSOLUTE AUTO 0.02 K/mm3 (0.00-0.23); BASOPHILS PERCENT AUTO 0 % (0-2); EOSINOPHILS ABSOLUTE AUTO 0.01 K/mm3 (0.00-0.68); EOSINOPHILS PERCENT AUTO 0 % (0-6); Hematocrit 27.5 % (33.0-51.0); Hemoglobin 8.4 g/dL (11.5-16.0); IMMATURE GRAN ABSOLUTE AUTO 0.11 K/mm3 (0.00-0.10); IMMATURE GRAN PERCENT AUTO 1 % (0-1); LYMPHOCYTES PERCENT AUTO 34 % (21-46); MONOCYTES PERCENT AUTO 7 % (4-13); Mean Corpuscular HGB 31.2 pg (26.0-34.0); Mean Corpuscular HGB Conc 30.5 g/dL (31.5-36.5); Mean Platelet Volume 9.1 fL (9.1-12.4); NEUTROPHILS ABSOLUTE AUTO 11.82 K/mm3 (1.96-9.15); NEUTROPHILS PERCENT AUTO 59 % (41-73); Platelet Count 607 K/mm3 (150-400); RDW Coefficient Variation 15.8 % (11.7-14.2); RDW Standard Deviation 58.4 fL (35.1-46.3); Red Blood Cell Count 2.69 M/mm3 (3.80-5.20); White Blood Cell Count 20.16 K/mm3 (4.00-11.30)
[2019-06-16 10:39] LABS: Mean Corpuscular Volume 102 fL (80-100)
[2019-06-16 10:48] LABS: Anion Gap 4 mmol/L (6-16); Blood Urea Nitrogen 16 mg/dL (8-24); Bun/Creatinine Ratio 21.8 (12.0-20.0); CO2, Blood 28 mmol/L (21-32); Calcium, Blood 9.3 mg/dL (8.5-10.1); Chloride, Blood 106 mmol/L (98-108); Creatinine, Blood 0.73 mg/dL (0.40-1.00); Glomerular Filtration Rate >60 (60-); Glucose, Blood 97 mg/dL (70-99); Potassium, Blood 4.5 mmol/L (3.5-5.5); Sodium, Blood 138 mmol/L (136-145)
--- NOTE | 2019-06-16 18:13 | NUR ---
SHIFT SUMMARY PAIN HAS BEEN MANAGED WITH PO PAIN MEDICATION. PT IS A 1 PERSON ASSIST FOR TRANSFERS. PT HAS BEEN EDUCATED NOT TO GET OOB WITHOUT STAFF ASSISTANCE. VSS. WILL MONITOR UNTIL REPORT TO ONCOMING RN.
--- NOTE | 2019-06-17 01:51 | NUR ---
PT C/O INCREASED PAIN TO R FOOT. NORCO AND SUBLIMAZE REPORTED INEFFECTIVE. ENC PT TO ELEVATE AND ICE PLACED. GREAT TOE IS COOL TO TOUCH. UNABLE TO PALPATE PEDAL PULSE DUE TO DSNGS.PT REPORTS SHE HAS HAD MINIMAL CIRCULATION FOR YEARS DUE TO SMOKING AND STENTS.CALL OUT TO DR LE WITH MESSAGE LEFT FOR RETURN CALL.
--- NOTE | 2019-06-17 02:03 | NUR ---
PHONE CALL OUT TO DR DELAROSA WHO PERFORMED THE AMPUTAION. MESSAGE LEFT FOR RETURNED CALL.
--- NOTE | 2019-06-17 02:08 | NUR ---
ELEVATION AND ICE HAVE NOT IMPROVED PAIN LEVEL. PAIN CONTINUES TO WORSEN.DO NOT SEE NOTE FROM DR DELAROSA FOR TODAY.I CALLED NURSING SUPERVISER HONEY AND OBTAINED PERMISSION TO CUT DRESSING TO LOOSEN IN CASE OF POSSIBLE COMPARTMENT ISSUES WHILE WAITING FOR RETURNED CALLS PER DOCTORS.
--- NOTE | 2019-06-17 02:22 | NUR ---
DR DELAROSA RETURNED MY CALL.I NOTIFIED HIM OF INCREASED PAIN.BLANCHING OF R GREAT TOE AND OF DRESSING SPLIT DUE TO CONCERNS OF COMPARTMENT ISSUES.WITH DRESSINGS OFF.UNABLE TO OBTAIN PEDAL PULSE WITH DOPPLER WHICH DOCTOR AND PT BOTH VERB NOT SURPRISED TO THIS.TAMIKO ERAZO RN WAS ABLE TO OBTAIN POST TIBIAL PULSE PER DOPPLER.DR MARKS PLEASED WITH POST TIBIAL PULSE.DR INSTRUCTED ME TO RE DRESS FOOT WITH GAUZE AND TAPE IT.WITH NO COBAN OR NIKOS WRAP NEEDED. ORDERS OBTAINED FOR DILAUDID AND ACTIVITY.
--- NOTE | 2019-06-17 03:00 | NUR ---
AFTER SPLIOTTING DRESSING, GREAT TOE STILL HAS SOME BLANCHING TO TIP, BUT REST OF TOE IS PINKER WITH NORMAL REFILL. PT VERB PAIN LEVEL PRIOR TO SPLITTING OF DRESSING, HAD GOTTEN UP TO 15 ON A 1-10 SCALE. NOW REPORTS PAIN LEVEL DOWN TO 9 JUST FROM SPLITTING DRESSING.
--- NOTE | 2019-06-17 08:13 | NUR ---
SUMMARY PT RECEIVED BOTH DOSES OF DILAUD ORDERED AND GUAZE REAPPLIED TO R FOOT WITHOUT COBAN OR NIKOS WRAP.POSTOP SHOE PLACED PT VERB PAIN GREATLY RELIEVED. HAS GOTTEN SOME SLEEP. WIGGLES TOES AND FINGERS WITHOUT DIFF.R GREAT TOE STILL HAS MILD BLANCHING.
[2019-06-17 08:57] LABS: Hemoglobin 8.4 g/dL (11.5-16.0); Mean Corpuscular HGB 30.5 pg (26.0-34.0); Mean Corpuscular Volume 102 fL (80-100); Mean Platelet Volume 9.2 fL (9.1-12.4); Platelet Count 630 K/mm3 (150-400); RDW Coefficient Variation 15.6 % (11.7-14.2); RDW Standard Deviation 58.2 fL (35.1-46.3); Red Blood Cell Count 2.75 M/mm3 (3.80-5.20); White Blood Cell Count 16.43 K/mm3 (4.00-11.30)
[2019-06-17 09:15] LABS: Alanine Aminotransfer (ALT/SGP 28 U/L (12-78); Albumin, Blood 2.9 g/dL (3.4-5.0); Albumin/Globulin Ratio 0.9 (0.8-1.8); Alk Phos 83 U/L (50-136); Anion Gap 7 mmol/L (6-16); Aspartate Aminotrans (AST/SGOT 34 U/L (12-37); Bilirubin, Total 0.2 mg/dL (0.1-1.0); Blood Urea Nitrogen 17 mg/dL (8-24); Bun/Creatinine Ratio 25.1 (12.0-20.0); CO2, Blood 25 mmol/L (21-32); Calcium, Blood 9.2 mg/dL (8.5-10.1); Chloride, Blood 107 mmol/L (98-108); Creatinine, Blood 0.68 mg/dL (0.40-1.00); Globulin, Blood 3.3 g/dL (2.2-4.0); Glomerular Filtration Rate >60 (60-); Glucose, Blood 97 mg/dL (70-99); Potassium, Blood 4.2 mmol/L (3.5-5.5); Sodium, Blood 139 mmol/L (136-145); Total Protein, Blood 6.2 g/dL (6.4-8.2)
[2019-06-17 09:29] LABS: BASOPHILS ABSOLUTE MAN 0.16 K/mm3 (0.00-0.23); BASOPHILS PERCENT MAN 1 % (0-2); EOSINOPHILS ABSOLUTE MAN 0.16 K/mm3 (0.00-0.68); EOSINOPHILS PERCENT MAN 1 % (0-6); LYMPHOCYTES ABSOLUTE MAN 7.72 K/mm3 (0.84-5.20); LYMPHOCYTES PERCENT MAN 47 % (21-46); MONOCYTES ABSOLUTE MAN 0.82 K/mm3 (0.16-1.47); MONOCYTES PERCENT MAN 5 % (4-13); NEUTROPHILS ABSOLUTE MAN 7.55 K/mm3 (1.96-9.15); SEG NEUTROPHILS PERCENT MAN 46 % (41-73); TOTAL CELLS COUNTED 100
--- NOTE | 2019-06-17 16:02 | NUR ---
SHIFT SUMMARY PT IS A/O X 4 WITH ONGOING PAIN TO RIGHT FOOT. PT IS A X 1 ASSIST TO THE BSC WITH FWW. RIGHT FOOT DRESSING REMAINS C.D.I. AND FINGER DRESSING ARE ALSO C.D.I. BOOT TO RIGHT FOOT IS ON ORDERED. THE PLAN FOR HER FINGERS IS TO HAVE THEM LOOKED AT IN [place]. PER DR ANGULO CARE MANAGEMENT IS WORKING ON PT TO DC TO SNF FOR THERAPIES. PT IS ABLE TO MAKE HER NEEDS KNOWN AND CALLS FOR HELP WHEN NEEDED. SHE IS AWARE OF HER HEEL TOUCH WEIGHT BEARING STATUS AND FOLLOWS IT. CALL LIGHT IS IN REACH.
--- NOTE | 2019-06-18 01:14 | NUR ---
PT WAS MEDICATE WITH SUBLIMAZE IV FOR PAIN AND FELL ASLEEP AFTER STATES SHE AWOKE WITH INCREASED PAIN. CRYING OUT. SEE LAST NIGHT NOTES.CLEARLY NOT DRESSING TONIGHT I WRAPPED FOOT MYSELF THIS AM AND WAS WRAPPED LOOSELY.
--- NOTE | 2019-06-18 01:25 | NUR ---
I CALLED DR LE AND RECEIVED NEW ORDERS FOR DILAUDID IV PT VERB IT WAS EFFECTIVE FOR HER LAST NIGHT.
--- NOTE | 2019-06-18 03:37 | NUR ---
PT VERB DILAUDID IS NOT EFFECTIVE FOR PAIN. NOT WANTING TO TAKE NORCO. I CALLED DR LE AND RECEIVED ORDER FOR TORADOL .
--- NOTE | 2019-06-18 08:08 | NUR ---
SUMMARY PT RECEIVED TORADOL AND NARCOTICS PRESCRIBED.VERB IMPROVED, BUT STATES SHE IS PLANNING FOR WHEN IT WORSENS AGAIN.
[2019-06-18 08:20] LABS: Hematocrit 26.8 % (33.0-51.0); Mean Corpuscular HGB 30.7 pg (26.0-34.0); Mean Corpuscular HGB Conc 29.9 g/dL (31.5-36.5); Mean Corpuscular Volume 103 fL (80-100); Platelet Count 561 K/mm3 (150-400); RDW Coefficient Variation 15.5 % (11.7-14.2); RDW Standard Deviation 58.4 fL (35.1-46.3); Red Blood Cell Count 2.61 M/mm3 (3.80-5.20); White Blood Cell Count 13.29 K/mm3 (4.00-11.30)
[2019-06-18 08:41] LABS: Alanine Aminotransfer (ALT/SGP 27 U/L (12-78); Albumin, Blood 2.6 g/dL (3.4-5.0); Albumin/Globulin Ratio 0.9 (0.8-1.8); Alk Phos 77 U/L (50-136); Anion Gap 5 mmol/L (6-16); Aspartate Aminotrans (AST/SGOT 24 U/L (12-37); Bilirubin, Total 0.3 mg/dL (0.1-1.0); Blood Urea Nitrogen 14 mg/dL (8-24); Bun/Creatinine Ratio 20.5 (12.0-20.0); CO2, Blood 28 mmol/L (21-32); Calcium, Blood 9.2 mg/dL (8.5-10.1); Chloride, Blood 108 mmol/L (98-108); Creatinine, Blood 0.68 mg/dL (0.40-1.00); Glomerular Filtration Rate >60 (60-); Glucose, Blood 84 mg/dL (70-99); Potassium, Blood 4.3 mmol/L (3.5-5.5); Sodium, Blood 141 mmol/L (136-145); Total Protein, Blood 5.6 g/dL (6.4-8.2)
--- NOTE | 2019-06-18 09:30 | NUR ---
PT TO DIALYSIS
[2019-06-18 09:51] LABS: BASOPHILS ABSOLUTE MAN 0.13 K/mm3 (0.00-0.23); BASOPHILS PERCENT MAN 1 % (0-2); EOSINOPHILS ABSOLUTE MAN 0.13 K/mm3 (0.00-0.68); EOSINOPHILS PERCENT MAN 1 % (0-6); LYMPHOCYTES ABSOLUTE MAN 6.64 K/mm3 (0.84-5.20); LYMPHOCYTES PERCENT MAN 50 % (21-46); MONOCYTES ABSOLUTE MAN 0.66 K/mm3 (0.16-1.47); MONOCYTES PERCENT MAN 5 % (4-13); NEUTROPHILS ABSOLUTE MAN 5.71 K/mm3 (1.96-9.15); SEG NEUTROPHILS PERCENT MAN 43 % (41-73); TOTAL CELLS COUNTED 100
--- NOTE | 2019-06-18 12:04 | NUR ---
Metb pt in a chair relaxed and resting she reports to be doing fine offered prayers for pt.
--- NOTE | 2019-06-18 12:55 | NUR ---
PT RETURNED FROM DIALYSIS. A&OX4, DENIES PAIN, DENIES N&V, SITTING UP IN BED READY TO EAT LUNCH.
--- NOTE | 2019-06-18 19:04 | NUR ---
SHIFT SUMMARY PT A&OX3, FORGETFUL, NEEDS REMINDERS AND CUES FOR AMBULATION. POD4 L HIP PIN, AQUACEL CDI. POD3 RLE 2 TOES, BANDAGE CHANGED BY DR DELAROSA TODAY, CDI. PAIN MANAGED WITH 10 MG NORCO AND 5 MG OXY. AMBULATES TO BRP/CHAIR/BED WITH FWW & GB W/SBA; NEEDS CUES AND REMINDERS TO WEAR SHOE WITH ALL AMBULATION AND ONLY HEEL TOUCH, IF CANNOT DO THAT THEN TO HOP ON L FOOT. PLAN FOR ANGIOGRAM ON TUESDAY WITH DR PATEL. RICKEY PO, DENIES N&V. WILL REPORT TO ONCOMING NOC RN.
[2019-06-19 04:43] LABS: BASOPHILS ABSOLUTE AUTO 0.06 K/mm3 (0.00-0.23); BASOPHILS PERCENT AUTO 0 % (0-2); EOSINOPHILS ABSOLUTE AUTO 0.39 K/mm3 (0.00-0.68); EOSINOPHILS PERCENT AUTO 3 % (0-6); Hematocrit 28.6 % (33.0-51.0); Hemoglobin 8.6 g/dL (11.5-16.0); IMMATURE GRAN ABSOLUTE AUTO 0.04 K/mm3 (0.00-0.10); IMMATURE GRAN PERCENT AUTO 0 % (0-1); LYMPHOCYTES ABSOLUTE AUTO 6.11 K/mm3 (0.84-5.20); LYMPHOCYTES PERCENT AUTO 40 % (21-46); MONOCYTES ABSOLUTE AUTO 0.95 K/mm3 (0.16-1.47); MONOCYTES PERCENT AUTO 6 % (4-13); Mean Corpuscular HGB 30.3 pg (26.0-34.0); Mean Corpuscular HGB Conc 30.1 g/dL (31.5-36.5); Mean Corpuscular Volume 101 fL (80-100); Mean Platelet Volume 8.9 fL (9.1-12.4); NEUTROPHILS ABSOLUTE AUTO 7.72 K/mm3 (1.96-9.15); NEUTROPHILS PERCENT AUTO 51 % (41-73); Platelet Count 646 K/mm3 (150-400); RDW Coefficient Variation 15.4 % (11.7-14.2); RDW Standard Deviation 56.6 fL (35.1-46.3); Red Blood Cell Count 2.84 M/mm3 (3.80-5.20); White Blood Cell Count 15.27 K/mm3 (4.00-11.30)
[2019-06-19 05:07] LABS: Alanine Aminotransfer (ALT/SGP 29 U/L (12-78); Albumin, Blood 2.9 g/dL (3.4-5.0); Albumin/Globulin Ratio 0.9 (0.8-1.8); Alk Phos 83 U/L (50-136); Anion Gap 7 mmol/L (6-16); Aspartate Aminotrans (AST/SGOT 30 U/L (12-37); Bilirubin, Total 0.4 mg/dL (0.1-1.0); Blood Urea Nitrogen 15 mg/dL (8-24); Bun/Creatinine Ratio 20.5 (12.0-20.0); CO2, Blood 25 mmol/L (21-32); Calcium, Blood 9.4 mg/dL (8.5-10.1); Chloride, Blood 107 mmol/L (98-108); Creatinine, Blood 0.73 mg/dL (0.40-1.00); Globulin, Blood 3.3 g/dL (2.2-4.0); Glomerular Filtration Rate >60 (60-); Glucose, Blood 90 mg/dL (70-99); Potassium, Blood 4.3 mmol/L (3.5-5.5); Sodium, Blood 139 mmol/L (136-145); Total Protein, Blood 6.2 g/dL (6.4-8.2)
--- NOTE | 2019-06-19 06:22 | NUR ---
SHIFT SUMMARY PT A/OX4 WITH VSS. POD 5 LEFT HIP PINNING, AQUACEL C/D/I. POD 4 TOE AMPUTATION- RIGHT FOOT, DRESSING APPEARS C/D/I. DRESSINGS TO FINGERS CHANGED DURING SHIFT, NOW C/D/I. ABLE TO STAND/PIVOT TO BSC WITH FWW. PAIN MANAGED WITH PO MEDICATIONS PER EMAR. PLAN FOR ANGIOGRAM THIS THURS W/. PT CURRENTLY RESTING IN BED WITH CALL LIGHT IN REACH. WILL CONT TO MONITOR AND GIVE REPORT TO ONCOMING RN.
--- NOTE | 2019-06-19 11:30 | NUR ---
REVASCULARIZATION UPON CALLING HEART CENTER TO DETERMINE WHAT TIME PT'S PROCEDURE WILL BE TOMORROW, RISK MANAGEMENT INTERNSHIP WAS INFORMED IT WILL BE TODAY. PT MADE NPO AND LAST DRINK OF WATER WAS AT 11:00. PT UPDATED WELL.
--- NOTE | 2019-06-19 12:44 | NUR ---
Pt. is lying in a chair and is doing much better offered prayers.
--- NOTE | 2019-06-19 16:30 | NUR ---
PT TO HEART CENTER VIA W/C.
--- NOTE | 2019-06-19 17:29 | NUR ---
REPORT CALLED TO PCU NURSE
--- NOTE | 2019-06-19 19:45 | NUR ---
ASSUMED CARE./ARRIVAL PT ARRIVE FROM HC. L GROIN ANGIO SITE ASSESSED, NOTED TO BE ACTIVELY BLEEDING. HC STAFF APPLIED PRESSURE TO SITE. PER HC RN PT WAS MOVING T/O PROCEDURE AND HAS BEEN SHIFTING AND FLEXING HIPS CONTINUOUSLY. HC RN ON PHONE WITH DR. PATEL AND GOT VERBAL ORDER TO APPLY FEMSTOP FOR PRESSURE TO GROIN SITE. PER HC STAFF ANGIO SEAL WAS PLACED DURING PROCEDURE WELL.
--- NOTE | 2019-06-19 20:30 | NUR ---
VSS. FEMSTOP REMAINS IN PLACE. PEDAL PULSE STRONG. NO SIGNS OF BLEEING.
[2019-06-19 20:48] LABS: International Normalized Ratio 1.04; Prothrombin Time Results 11.1 Sec (9.7-11.5)
--- NOTE | 2019-06-19 21:30 | NUR ---
VSS. FEM STOP PRESSURE REDUCED TO 60. NO BLEEDING NOTED. PEDAL PULSE REMAINS PRESENT AND STRONG
--- NOTE | 2019-06-19 22:40 | NUR ---
FEM STOP PRESSURE REDUCED TO 45. NO FURTHER SIGNS OF BLEEDING.
--- NOTE | 2019-06-19 23:05 | NUR ---
FEM STOP IN PLACE PRESSURE SET TO 80 ON FEMSTOP. BLEEDING APPEARS TO BE CONTROLLED AT THIS TIME. PULSE PRESENT AND STRONG ON L FOOT. PT RESTING COMFORTABLY SINCE APPLIACTION.
--- NOTE | 2019-06-20 00:28 | NUR ---
FEM STOP PRESSURE REDUCED TO 30. PT SLEEPING COMFORTABLY. NO FURTHER SIGNS OF BLEEDING.
--- NOTE | 2019-06-20 02:05 | NUR ---
PT UPDATE PT CALLING OUT IN PAIN, WRITHING IN BED. PT REPORTS HAS TO PEE AND CANT. PT IS 6HR S/P ANGIO FOR R LEG REVASC, HOB TO 15 DEGREE ANGLE TO HELP PT W/ COMFORT. ANGIO SITE WNL, NO NEW BLOOD TO DRESSING. PT STILL IN PAIN, REPORTS NEEDS TO PEE TO RELIEVE PAIN. PT HAS ONLY PRODUCED APPROX 20ML URINE ALL SHIFT. BLADDER SCAN DONE >950ML URINE. MALLORY CATH WAS PLACED TO EMPTY BLADDER. IMMEDIATE 300ML OUTPUT, PT VISIBLY MORE RELAXED, REPORTS FEELING MUCH BETTER. CATHETER LEFT IN PLACE PER PROVIDER AND ORDERS TO RECHECK BLADDER SCAN IN 6HRS. PT NOW SLEEPING COMFORTABLY.
[2019-06-20 04:09] LABS: Source, Urine Catheter
[2019-06-20 04:13] LABS: Bilirubin, Urine Neg (Neg); Blood, Urine 1+ (Neg); Glucose Qualitative, Urine Neg (Neg); Ketones, Urine 1+ (Neg); Leukocyte Esterase, Urine Neg (Neg); Nitrite, Urine Neg (Neg); Protein, Urine Neg (Neg); Urobilinogen, Urine NORM (Normal)
[2019-06-20 04:14] LABS: Appearance, Urine Clear (Clear); Color, Urine Yellow (P-Yellow)
[2019-06-20 04:22] LABS: Bacteria Few /hpf; Red Blood Cells, Urine 0-2 /hpf (0-2); Squamous Epithelial Cells Not Seen /hpf (Few); White Blood Cells, Urine 0-2 /hpf (0-5)
--- NOTE | 2019-06-20 05:15 | NUR ---
SHIFT SUMMARY PT SLEEPING IN ROOM COMFORTABLY AT THIS TIME. PT HAD REVASC OF RLE 06/19/19. TWO STENTS REPLACED. PT HAS VERY FAINT PEDAL PULSE ON R FOOT, WITH RED DISCOLORATION AND COOL TO TOUCH. STRONG PEDAL PULSE ON L FOOT. ANIGO SITE IN L GROIN BLED AT START OF SHIFT AND FEM STOP WAS PLACED. SEE PREVIOUS NOTES. FEM STOP REMOVED AND HAS NO NEW BLOOD SINCE PLACEMENT. DRESSING HAS MODERATE AMOUNT OF DRIED BLOOD IN PLACE, BUT SOFT, NO HEMATOMAS NOTED. RESP EVEN UNLABORED ON 2L NC W/ SATS >92%. PT HAS SOME DESAT WHILE SLEEPING, D/T PAIN MEDICATIONS ON BOARD. PT REPORTING PAIN OFTEN UPON WAKING, TO L HIP, GROIN, R FOOT, AND FINGERS. DRESSING NOTED TO AMPUTATED TOES ON R FOOT, AND SEVERAL FINGERS ON BILAT HANDS. PER REPORT FINGERS HAVE SOME GANGRENE. DRESSINGS IN PLACE, SOME SCANT BLOOD NOTED TO L HAND DRESSING. PT HOB ELEVATED TO 25 DEGREE ANGLE AFTER PROCEDURE. VSS T/O NIGHT, WITH SOME SPIKES IN BP IN CORRELATION WITH PAIN EPISODES. MALLORY CATH PLACED D/T URINE RETENTION AND PT INABILITY TO URINATE DURING SHIFT. >1000ML URINE OUT W/ MALLORY PLACEMENT. PT DENIES CP OR SOB. CALL LIGHT IN REACH. BED MOVEMENT LOCKED D/T ANGIO SITE, BED ALARM ON.
[2019-06-20 05:17] LABS: Hematocrit 27.8 % (33.0-51.0); Hemoglobin 8.3 g/dL (11.5-16.0); Mean Corpuscular HGB 30.6 pg (26.0-34.0); Mean Corpuscular HGB Conc 29.9 g/dL (31.5-36.5); Mean Corpuscular Volume 103 fL (80-100); Mean Platelet Volume 9.5 fL (9.1-12.4); Platelet Count 667 K/mm3 (150-400); RDW Coefficient Variation 15.4 % (11.7-14.2); RDW Standard Deviation 57.4 fL (35.1-46.3); Red Blood Cell Count 2.71 M/mm3 (3.80-5.20)
[2019-06-20 05:24] LABS: Anion Gap 6 mmol/L (6-16); Blood Urea Nitrogen 10 mg/dL (8-24); Bun/Creatinine Ratio 17.3 (12.0-20.0); CO2, Blood 26 mmol/L (21-32); Calcium, Blood 9.1 mg/dL (8.5-10.1); Chloride, Blood 109 mmol/L (98-108); Creatinine, Blood 0.58 mg/dL (0.40-1.00); Glomerular Filtration Rate >60 (60-); Glucose, Blood 104 mg/dL (70-99); Sodium, Blood 141 mmol/L (136-145)
[2019-06-20 06:10] LABS: BASOPHILS PERCENT MAN 0 % (0-2); EOSINOPHILS ABSOLUTE MAN 0.31 K/mm3 (0.00-0.68); EOSINOPHILS PERCENT MAN 2 % (0-6); LYMPHOCYTES ABSOLUTE MAN 5.72 K/mm3 (0.84-5.20); LYMPHOCYTES PERCENT MAN 36 % (21-46); MONOCYTES ABSOLUTE MAN 0.47 K/mm3 (0.16-1.47); MONOCYTES PERCENT MAN 3 % (4-13); NEUTROPHILS ABSOLUTE MAN 9.38 K/mm3 (1.96-9.15); SEG NEUTROPHILS PERCENT MAN 59 % (41-73); TOTAL CELLS COUNTED 100
--- NOTE | 2019-06-20 07:41 | NUR ---
ASSUMED PATIENT CARE. PATIENT RESTING COMFORTABLY IN BED, NO SIGNS OF ACUTE DISTRESS, WCTM.
--- NOTE | 2019-06-20 18:48 | NUR ---
NO ACUTE EVENTS THIS SHIFT. MADE SLIGHT IMPROVEMENT THIS SHIFT IN PAIN MANAGEMENT, WAS ABLE TO MOVE TOWARD BETTER MANAGEMENT WITH PO MEDICATION. HEPARIN DRIP WAS DISCONTINUED THIS SHIFT AND PO XARELTO STARTED. PLAN IS TO CONTINUE TO EVALUATE R. FOOT VASCULAR FUNCTION POST-ANGIO, BUT THERE IS POTENTIAL FOR BKA TO BE NECESSARY IN FUTURE.
--- NOTE | 2019-06-20 19:29 | NUR ---
RELINQUISHED PATIENT CARE.
--- NOTE | 2019-06-21 05:10 | NUR ---
SHIFT SUMMARY PT SLEEPING IN ROOM COMFORTABLY AT THIS TIME. NO ACUTE CHANGES IN STATUS T/O NIGHT. PT SLEPT IN SHORT PERIODS, WOKE SEVERAL TIMES FOR PAIN MEDICATIONS. RESP EVEN UNLABORED ON RA W/ SATS >92%. PT DENIED CP OR SOB. REPORT PAIN MULTIPLE TIMES T/O NIGHT. PT HAD EPISODES OF PAIN WRITHING IN BED AND TEARFUL. PT WAS MEDICATED PER EMAR FOR PAIN. PT WAS ABLE TO GET UP TO BSC W/ 1 PERS ASSIST, USING HEEL TOUCH ON L FOOT NON WEIGHTBEARING ON RIGHT, USING 4WW. PT DID ATTEMPT TO GET OUT OF BED W/O USING CALL LIGHT ONCE. PT REMINDED ABOUT RECENT FALL AND HIP FX. BED ALARM PLACED ON PT TO ENSURE SAFETY. CALL LIGHT IN REACH.
[2019-06-21 06:42] LABS: Hematocrit 25.5 % (33.0-51.0); Hemoglobin 7.9 g/dL (11.5-16.0); Mean Corpuscular HGB 31.2 pg (26.0-34.0); Mean Corpuscular Volume 101 fL (80-100); Mean Platelet Volume 9.2 fL (9.1-12.4); Platelet Count 603 K/mm3 (150-400); RDW Coefficient Variation 15.3 % (11.7-14.2); RDW Standard Deviation 56.4 fL (35.1-46.3); Red Blood Cell Count 2.53 M/mm3 (3.80-5.20); White Blood Cell Count 15.89 K/mm3 (4.00-11.30)
[2019-06-21 06:57] LABS: Anion Gap 5 mmol/L (6-16); Blood Urea Nitrogen 9 mg/dL (8-24); Bun/Creatinine Ratio 15.7 (12.0-20.0); CO2, Blood 24 mmol/L (21-32); Calcium, Blood 9.1 mg/dL (8.5-10.1); Chloride, Blood 109 mmol/L (98-108); Creatinine, Blood 0.57 mg/dL (0.40-1.00); Glomerular Filtration Rate >60 (60-); Glucose, Blood 98 mg/dL (70-99); Potassium, Blood 4.3 mmol/L (3.5-5.5); Sodium, Blood 138 mmol/L (136-145)
[2019-06-21 07:28] LABS: BASOPHILS PERCENT MAN 0 % (0-2); EOSINOPHILS ABSOLUTE MAN 0.47 K/mm3 (0.00-0.68); EOSINOPHILS PERCENT MAN 3 % (0-6); LYMPHOCYTES ABSOLUTE MAN 6.99 K/mm3 (0.84-5.20); LYMPHOCYTES PERCENT MAN 44 % (21-46); MONOCYTES ABSOLUTE MAN 1.27 K/mm3 (0.16-1.47); MONOCYTES PERCENT MAN 8 % (4-13); NEUTROPHILS ABSOLUTE MAN 7.15 K/mm3 (1.96-9.15); SEG NEUTROPHILS PERCENT MAN 45 % (41-73); TOTAL CELLS COUNTED 100
--- NOTE | 2019-06-22 03:54 | NUR ---
SUMMARY PT CONTINUES TO HAVE PAIN. PT TX PER EMAR WITH PT ABLE TO SLEEP COMFORTABLY. PT DID BECOME EMOTIONAL THIS AM DUE TO HER CURRENT HEALTH ISSUES. PT WAS COMFORTED AND WAS ABLE TO GO BACK TO SLEEP. PT CURRENTLY SLEEPING AND BREATHING EASY. CALL LIGHT IN REACH.
[2019-06-22 04:46] LABS: BASOPHILS ABSOLUTE AUTO 0.06 K/mm3 (0.00-0.23); BASOPHILS PERCENT AUTO 0 % (0-2); EOSINOPHILS ABSOLUTE AUTO 0.48 K/mm3 (0.00-0.68); EOSINOPHILS PERCENT AUTO 4 % (0-6); Hemoglobin 8.8 g/dL (11.5-16.0); IMMATURE GRAN ABSOLUTE AUTO 0.05 K/mm3 (0.00-0.10); IMMATURE GRAN PERCENT AUTO 0 % (0-1); LYMPHOCYTES ABSOLUTE AUTO 4.54 K/mm3 (0.84-5.20); LYMPHOCYTES PERCENT AUTO 33 % (21-46); MONOCYTES ABSOLUTE AUTO 1.22 K/mm3 (0.16-1.47); MONOCYTES PERCENT AUTO 9 % (4-13); Mean Corpuscular HGB 31.4 pg (26.0-34.0); Mean Corpuscular HGB Conc 31.4 g/dL (31.5-36.5); Mean Corpuscular Volume 100 fL (80-100); Mean Platelet Volume 9.5 fL (9.1-12.4); NEUTROPHILS ABSOLUTE AUTO 7.48 K/mm3 (1.96-9.15); NEUTROPHILS PERCENT AUTO 54 % (41-73); Platelet Count 562 K/mm3 (150-400); RDW Coefficient Variation 15.6 % (11.7-14.2); RDW Standard Deviation 57.5 fL (35.1-46.3); White Blood Cell Count 13.83 K/mm3 (4.00-11.30)
[2019-06-22 05:02] LABS: Albumin, Blood 2.5 g/dL (3.4-5.0); Anion Gap 5 mmol/L (6-16); Blood Urea Nitrogen 13 mg/dL (8-24); Bun/Creatinine Ratio 18.5 (12.0-20.0); CO2, Blood 27 mmol/L (21-32); Calcium, Blood 9.2 mg/dL (8.5-10.1); Chloride, Blood 108 mmol/L (98-108); Glomerular Filtration Rate >60 (60-); Glucose, Blood 89 mg/dL (70-99); Phosphorus, Blood 4.3 mg/dL (2.5-4.9); Potassium, Blood 4.4 mmol/L (3.5-5.5); Sodium, Blood 140 mmol/L (136-145)
--- NOTE | 2019-06-23 03:46 | NUR ---
SHIFT SUMMARY ASSUMED CARE OF PT AT 1900. PT IS A/O X4, DENIES N/T IN EXTREMITIES. HEART SOUNDS REGULAR, LUNG SOUNDS CLEAR, DENIES SOB/CP AT THIS TIME. PT IS 1P SBA TO COMMODE. DRESSING CHANGED ON PT FINGERS. PT C/O PAIN 12/21, MEDICATED PER EMAR. IV WAS INFILTRATED, NOTIFIED HOSPITALIST, ORDERED NO IV ACCESS AND TO DC ALL IV MEDICATION AND CHANGED HER PO MEDS TO Q4 FOR PAIN. NO ACUTE EVENTS OVER NIGHT. PT SLEPT T/O THE NIGHT. CALL LIGHT IN REACH, BED IN LOWEST POSTION, WILL CONTINUE TO TMONITOR UNTIL DAYSHIFT NURSE ARRIVES.
[2019-06-23 04:46] LABS: BASOPHILS ABSOLUTE AUTO 0.05 K/mm3 (0.00-0.23); BASOPHILS PERCENT AUTO 0 % (0-2); EOSINOPHILS ABSOLUTE AUTO 0.39 K/mm3 (0.00-0.68); EOSINOPHILS PERCENT AUTO 3 % (0-6); Hematocrit 25.3 % (33.0-51.0); Hemoglobin 7.8 g/dL (11.5-16.0); IMMATURE GRAN ABSOLUTE AUTO 0.04 K/mm3 (0.00-0.10); IMMATURE GRAN PERCENT AUTO 0 % (0-1); LYMPHOCYTES ABSOLUTE AUTO 4.59 K/mm3 (0.84-5.20); LYMPHOCYTES PERCENT AUTO 37 % (21-46); MONOCYTES ABSOLUTE AUTO 1.14 K/mm3 (0.16-1.47); MONOCYTES PERCENT AUTO 9 % (4-13); Mean Corpuscular HGB 31.1 pg (26.0-34.0); Mean Corpuscular HGB Conc 30.8 g/dL (31.5-36.5); Mean Corpuscular Volume 101 fL (80-100); Mean Platelet Volume 9.5 fL (9.1-12.4); NEUTROPHILS ABSOLUTE AUTO 6.33 K/mm3 (1.96-9.15); NEUTROPHILS PERCENT AUTO 51 % (41-73); Platelet Count 532 K/mm3 (150-400); RDW Coefficient Variation 15.2 % (11.7-14.2); RDW Standard Deviation 55.7 fL (35.1-46.3); Red Blood Cell Count 2.51 M/mm3 (3.80-5.20); White Blood Cell Count 12.54 K/mm3 (4.00-11.30)
[2019-06-23 05:16] LABS: Albumin, Blood 2.4 g/dL (3.4-5.0); Anion Gap 6 mmol/L (6-16); Blood Urea Nitrogen 17 mg/dL (8-24); Bun/Creatinine Ratio 23.2 (12.0-20.0); CO2, Blood 26 mmol/L (21-32); Calcium, Blood 9.1 mg/dL (8.5-10.1); Chloride, Blood 107 mmol/L (98-108); Creatinine, Blood 0.73 mg/dL (0.40-1.00); Glomerular Filtration Rate >60 (60-); Glucose, Blood 87 mg/dL (70-99); Phosphorus, Blood 4.6 mg/dL (2.5-4.9); Potassium, Blood 4.6 mmol/L (3.5-5.5); Sodium, Blood 139 mmol/L (136-145)
[2019-06-23 08:01] LABS: Percent Saturation 5.3 % (15.0-50.0)
[2019-06-23 12:13] LABS: Hemoglobin 8.9 g/dL (11.5-16.0)
--- NOTE | 2019-06-23 16:47 | NUR ---
SHIFT SUMMARY PT AXO, PLEASANT AND COOPERATIVE WITH CARE. MEDICATED FOR PAIN PRN PER EMAR THOUGH PT STATES THAT SHE IS 10/10 PAIN WHEN SHE APPEARS COMFORTABLY AND AT EASE. VSS. PT UNDRESSED HER FOOT AND REMOVED HER POST OP SHOE DESPITE KNOWING THAT SHE NEEDS TO LEAVE IN PLACE, EVEN IN BED. PT REPLACES BANDAGES SHE SES FIT. DRESSINGS TO FINGERS CDI. PT STATES THAT WHILE IN THE BATHROOM VOIDING, SHE WIPED AFTER SCRATCHING AND NOTICED SOME BLOOD ON THE TOILET PAPER. STOOL SAMPLE SENT, SEE LAB. NO IV IN PLACE. PT INDEPEDENTLY COMPLETED SOME PERSONAL HYGIENE AND STATED THAT SHE "FEELS BETTER." BED IN LOW POSITION, CALL LIGHT WITHIN REACH.
--- NOTE | 2019-06-24 02:31 | NUR ---
SHIFT SUMMARY ASSUMED CARE OPF PT AT 1900. PT IS A/OX4, DENIES N/T IN EXTREMITES. HEART SOUNDS REGULAR, LUNG SOUNDS CLEAR, DENIES CP/SOB AT THIS TIME. BANDAGES TO HANDS CHANGED THIS AM. PT C/O PAIN AT THE BEGINNING OF THE SHIFT BUT HAS SLEPT T/O THE NIGHT, MEDICATED PER EMAR. PT IS ALMOST INDEPENDENT IN ROOM, SBA TO BATHROOM. NO ACUTE EVENTS DURING THE NIGHT. PT SLEPT T/O THE NIGHT. CALL LIGHT IN REACH, BED IN LOWEST POSTION, WILL CONTINUE TO MONITOR UNTIL DAYSHIFT NURSE ARRIVES.
[2019-06-24 04:57] LABS: BASOPHILS ABSOLUTE AUTO 0.06 K/mm3 (0.00-0.23); BASOPHILS PERCENT AUTO 1 % (0-2); EOSINOPHILS ABSOLUTE AUTO 0.33 K/mm3 (0.00-0.68); EOSINOPHILS PERCENT AUTO 3 % (0-6); Hematocrit 27.3 % (33.0-51.0); Hemoglobin 8.3 g/dL (11.5-16.0); IMMATURE GRAN ABSOLUTE AUTO 0.04 K/mm3 (0.00-0.10); IMMATURE GRAN PERCENT AUTO 0 % (0-1); LYMPHOCYTES ABSOLUTE AUTO 3.95 K/mm3 (0.84-5.20); LYMPHOCYTES PERCENT AUTO 36 % (21-46); MONOCYTES ABSOLUTE AUTO 1.04 K/mm3 (0.16-1.47); MONOCYTES PERCENT AUTO 9 % (4-13); Mean Corpuscular HGB 31.3 pg (26.0-34.0); Mean Corpuscular HGB Conc 30.4 g/dL (31.5-36.5); Mean Corpuscular Volume 103 fL (80-100); Mean Platelet Volume 9.5 fL (9.1-12.4); NEUTROPHILS ABSOLUTE AUTO 5.63 K/mm3 (1.96-9.15); NEUTROPHILS PERCENT AUTO 51 % (41-73); Platelet Count 599 K/mm3 (150-400); RDW Coefficient Variation 14.9 % (11.7-14.2); RDW Standard Deviation 56.1 fL (35.1-46.3); Red Blood Cell Count 2.65 M/mm3 (3.80-5.20); White Blood Cell Count 11.05 K/mm3 (4.00-11.30)
[2019-06-24 05:21] LABS: Albumin, Blood 2.7 g/dL (3.4-5.0); Anion Gap 6 mmol/L (6-16); Blood Urea Nitrogen 13 mg/dL (8-24); Bun/Creatinine Ratio 21.2 (12.0-20.0); CO2, Blood 26 mmol/L (21-32); Calcium, Blood 9.3 mg/dL (8.5-10.1); Chloride, Blood 105 mmol/L (98-108); Creatinine, Blood 0.61 mg/dL (0.40-1.00); Glomerular Filtration Rate >60 (60-); Glucose, Blood 101 mg/dL (70-99); Sodium, Blood 137 mmol/L (136-145)
[2019-06-24 09:12] LABS: Stool Occult Blood Guaiac 1 Neg (Neg)
[2019-06-24] MEDS ORDERED: ROXICODONE5 MG PO (10:24)
--- NOTE | 2019-06-24 11:12 | NUR ---
CALLED AND SPOKE WITH JOAQUÍN AT [facility] ADMISSIONS AND SHE REPORTED OK FOR PT TO DISCHARGE TO [facility] TODAY. ORDERS FAXED AND [facility] CALLED FOR TRANSPORT, AWAITING TRANSPORT TIME.
--- NOTE | 2019-06-24 11:52 | NUR ---
DISCHARGE SUMMARY PT DISCHARGED TO [facility]. PT LEFT ROOM VIA [facility] TRANSPORT SERVICE JUST PRIOR TO THIS NOTE.PATIENT STATED THAT SHE NOTIFIED HER FAMILY HERSELF OF HER DISCHARGE AND DID NOT NEED THE NURSE TO NOTIFY ANYONE ON HER BEHALF. [facility], A PERSON THERE ANSWERED AND PLACED THIS NURSE ON HOLD AND THEN NO ONE EVER ANSWERED. REPORT ATTEMPTED AT 1147. REPORT CALLED AGAIN AT 1158. NO IV IN PLACE AT SD. BELONGINGS RETURNED
== END 2019-06-24 11:46 | DRG 481 ==
LOC: ER 08:14 → MEDS 10:08 → SURS 10:08 → PCU 06-19 19:30 → MEDS 06-21 12:45
PROVIDERS: Emergency Medicine; Family Medicine; Internal Medicine; Nurse Practitioner Acute Care; Orthopaedic Surgery; Radiology Diagnostic Radiology; ADMIT Hospitalist
PROC: 0QH634Z Insertion of Internal Fixation Device into Right Upper Femur, Percutaneous Approach (ICD-10-PCS; principal; 2019-06-14 12:30)
PROC: 0Y6R0Z1 Detachment at Right 2nd Toe, High, Open Approach (ICD-10-PCS; 2019-06-15)
PROC: 0Y6T0Z1 Detachment at Right 3rd Toe, High, Open Approach (ICD-10-PCS; 2019-06-15)
DX: S72.002A Fracture of unspecified part of neck of left femur, initial encounter for closed fracture (principal); I96 Gangrene, not elsewhere classified; M86.171 Other acute osteomyelitis, right ankle and foot; L03.115 Cellulitis of right lower limb; D47.3 Essential (hemorrhagic) thrombocythemia; G89.4 Chronic pain syndrome; I73.9 Peripheral vascular disease, unspecified; W19.XXXA Unspecified fall, initial encounter; F17.210 Nicotine dependence, cigarettes, uncomplicated; D63.8 Anemia in other chronic diseases classified elsewhere; E05.90 Thyrotoxicosis, unspecified without thyrotoxic crisis or storm; J44.9 Chronic obstructive pulmonary disease, unspecified; I10 Essential (primary) hypertension; K21.9 Gastro-esophageal reflux disease without esophagitis; E78.5 Hyperlipidemia, unspecified; F41.9 Anxiety disorder, unspecified; F43.10 Post-traumatic stress disorder, unspecified; R73.03 Prediabetes
CPT/HCPCS: 36217; 36415; 37225; 37230; 37232; 51701; 51702; 71045; 72100; 73130; 73502; 73630; 75710; 75716; 75774; 80048; 80053; 80069; 81001; 82272; 82607; 82728; 82746; 83540; 83550; 83735; 85014; 85018; 85025; 85347; 85610; 85730; 86850; 86900; 86901; 86923; 87071; 87075; 87077; 87086; 87186; 87205; 88305; 88311; 93005; 93010; 94640; 94760; 94762; 96374; 96375; 97110; 97116; 97163; 97166; 97530; 97535; 99152; 99153; 99284-25; A9270-GY; C1713; C1725; C1760; C1769; C1874; C1885; C1887; C1894; C9113; J0690; J1100; J1170; J1644; J1885; J2001; J2060; J2270; J2370; J2405; J2704; J2997; J3010; J7120; P9016; Q9967

== ENCOUNTER 2019-09-13 00:18 | Day surgery (SDC) | payer MEDICARE, OTHER ==
[~2019-09-13 00:18] MED LIST changes: +ROXICODONE5 MG PO
== END 2019-09-13 22:48 | disposition home or self-care (01) ==
LOC: WOUND 00:18
DX: L97.512 Non-pressure chronic ulcer of other part of right foot with fat layer exposed (principal); J44.9 Chronic obstructive pulmonary disease, unspecified; I10 Essential (primary) hypertension; E03.9 Hypothyroidism, unspecified; Z87.891 Personal history of nicotine dependence; Z79.899 Other long term (current) drug therapy; Z79.02 Long term (current) use of antithrombotics/antiplatelets; Z79.01 Long term (current) use of anticoagulants

== ENCOUNTER 2019-10-24 00:28 | Day surgery (SDC) | payer MEDICARE, OTHER | END 2019-10-24 22:41 | disposition home or self-care (01) | LOC: WOUND 00:28 | DX: L97.512 Non-pressure chronic ulcer of other part of right foot with fat layer exposed (principal); J44.9 Chronic obstructive pulmonary disease, unspecified; I10 Essential (primary) hypertension; Z87.891 Personal history of nicotine dependence; Z79.899 Other long term (current) drug therapy; Z79.02 Long term (current) use of antithrombotics/antiplatelets ==

== ENCOUNTER 2019-10-29 00:29 | Day surgery (SDC) | payer MEDICARE, OTHER | END 2019-10-29 23:11 | disposition home or self-care (01) | LOC: WOUND 00:29 | DX: L97.512 Non-pressure chronic ulcer of other part of right foot with fat layer exposed (principal); J44.9 Chronic obstructive pulmonary disease, unspecified; I10 Essential (primary) hypertension; E03.9 Hypothyroidism, unspecified; Z87.891 Personal history of nicotine dependence; Z79.899 Other long term (current) drug therapy; Z79.02 Long term (current) use of antithrombotics/antiplatelets; Z79.01 Long term (current) use of anticoagulants ==

== ENCOUNTER → 2019-11-03 | Outpatient (CLI) | payer MEDICARE, OTHER ==
[~2019-11-03] MED LIST changes: +ALLO100 PO; +GABA300 PO; +POTA10T PO; +SYMBICORT 160-4.6 GM PO; +TERB250 PO; +TRAZ150T57 PO
== END | disposition home or self-care (01) ==
LOC: LAB 21:30 → LAB SHORT 21:30
DX: T81.49XA Infection following a procedure, other surgical site, initial encounter (principal)
CPT/HCPCS: 87070; 87077; 87147; 87186; 87205

== ENCOUNTER 2019-11-08 07:39 | Day surgery (SDC) | payer MEDICARE, OTHER ==
[~2019-11-08] VITALS: Ht 167.6 cm; Wt 54.5 kg
--- NOTE | 2019-11-08 11:25 | NUR ---
PT RETURNED TO RECOVERY ROOM IN BED. LEFT FEMORAL GROIN SITE SOFT NON-TENDER WITH NO HEMATOMA, NO PULSATILE BLEEDING AND INTACT DRESSING. PT DENIES LEFT GROIN STIE PAIN; PT DENIES CHEST PAIN. LEFT DP 2+ PULSE. CALL LIGHT IN REACH.
--- NOTE | 2019-11-08 13:28 | NUR ---
DISCHARGE INSTRUCTIONS REVIEWED AND ALL QUESTIONS ANSWERED.
--- NOTE | 2019-11-08 13:32 | NUR ---
NO CHANGES TO LEFT FEMORAL GROIN SITE; SOFT NON-TENDER WITH NO HEMATOMA, NO PULSATILE BLEEDING.
--- NOTE | 2019-11-08 14:17 | NUR ---
PT AMBULATED TO BR TO VOID. 20 G IV DISCONTINUED FROM LEFT AC WITH INTACT CANNULA. PT ESCORTED OUT VIA WHEELCHAIR ESCORT.
== END 2019-11-08 14:10 | disposition home or self-care (01) ==
LOC: MHTC 07:39
DX: I70.211 Atherosclerosis of native arteries of extremities with intermittent claudication, right leg (principal); J44.9 Chronic obstructive pulmonary disease, unspecified; I10 Essential (primary) hypertension; E78.00 Pure hypercholesterolemia, unspecified; F17.210 Nicotine dependence, cigarettes, uncomplicated; Z79.01 Long term (current) use of anticoagulants; Z79.899 Other long term (current) drug therapy
CPT/HCPCS: 37226; 37229; 75716; 75774; 99152; 99153; C1724; C1725; C1760; C1769; C1874; C1887; C1894; C2623; J1644; J2250; J3010; J7030; J7040; Q9967

== ENCOUNTER 2019-11-12 00:19 | Day surgery (SDC) | payer MEDICARE, OTHER | END 2019-11-12 22:49 | disposition home or self-care (01) | LOC: WOUND 00:19 | DX: L97.512 Non-pressure chronic ulcer of other part of right foot with fat layer exposed (principal); I73.9 Peripheral vascular disease, unspecified; J44.9 Chronic obstructive pulmonary disease, unspecified; I10 Essential (primary) hypertension; E03.9 Hypothyroidism, unspecified; Z87.891 Personal history of nicotine dependence; Z79.899 Other long term (current) drug therapy ==

== ENCOUNTER 2019-11-21 00:27 | Day surgery (SDC) | payer MEDICARE, OTHER | END 2019-11-21 22:42 | disposition home or self-care (01) | LOC: WOUND 00:27 | DX: L97.512 Non-pressure chronic ulcer of other part of right foot with fat layer exposed (principal); I73.9 Peripheral vascular disease, unspecified | CPT/HCPCS: G0463 ==

== ENCOUNTER 2019-11-27 00:14 | Day surgery (SDC) | payer MEDICARE, OTHER | END 2019-11-27 22:47 | disposition home or self-care (01) | LOC: WOUND 00:14 | DX: L97.512 Non-pressure chronic ulcer of other part of right foot with fat layer exposed (principal); I73.9 Peripheral vascular disease, unspecified | CPT/HCPCS: G0463 ==

== ENCOUNTER 2019-12-11 00:06 | Day surgery (SDC) | payer MEDICARE, OTHER | END 2019-12-11 22:48 | disposition home or self-care (01) | LOC: WOUND 00:06 | DX: L97.512 Non-pressure chronic ulcer of other part of right foot with fat layer exposed (principal); I73.9 Peripheral vascular disease, unspecified | CPT/HCPCS: G0463 ==

== ENCOUNTER 2019-12-18 05:31 | Day surgery (SDC) | payer MEDICARE, OTHER | END 2019-12-18 23:05 | disposition home or self-care (01) | LOC: WOUND 05:31 | DX: L97.512 Non-pressure chronic ulcer of other part of right foot with fat layer exposed (principal); I73.9 Peripheral vascular disease, unspecified | CPT/HCPCS: G0463 ==

== ENCOUNTER 2020-01-15 02:07 | Day surgery (SDC) | payer MEDICARE, OTHER | END 2020-01-15 23:12 | disposition home or self-care (01) | LOC: WOUND 02:07 | DX: T87.53 Necrosis of amputation stump, right lower extremity (principal); T87.43 Infection of amputation stump, right lower extremity; L03.115 Cellulitis of right lower limb; I10 Essential (primary) hypertension; J44.9 Chronic obstructive pulmonary disease, unspecified; E03.9 Hypothyroidism, unspecified; M19.90 Unspecified osteoarthritis, unspecified site; Z51.5 Encounter for palliative care; Z88.5 Allergy status to narcotic agent; Z88.8 Allergy status to other drugs, medicaments and biological substances; Z89.431 Acquired absence of right foot; Z87.891 Personal history of nicotine dependence; Z79.02 Long term (current) use of antithrombotics/antiplatelets; Z79.899 Other long term (current) drug therapy; Z79.01 Long term (current) use of anticoagulants; Y83.5 Amputation of limb(s) as the cause of abnormal reaction of the patient, or of later complication, without mention of misadventure at the time of the procedure ==

== ENCOUNTER 2020-01-22 00:51 | Day surgery (SDC) | payer MEDICARE, OTHER | END 2020-01-22 23:03 | disposition home or self-care (01) | LOC: WOUND 00:51 | DX: L97.512 Non-pressure chronic ulcer of other part of right foot with fat layer exposed (principal); I73.9 Peripheral vascular disease, unspecified; I10 Essential (primary) hypertension; J44.9 Chronic obstructive pulmonary disease, unspecified; Z87.891 Personal history of nicotine dependence; Z79.899 Other long term (current) drug therapy ==

== ENCOUNTER 2020-01-29 00:11 | Day surgery (SDC) | payer MEDICARE, OTHER | END 2020-01-29 23:07 | disposition home or self-care (01) | LOC: WOUND 00:11 | DX: I96 Gangrene, not elsewhere classified (principal); L97.512 Non-pressure chronic ulcer of other part of right foot with fat layer exposed; L03.031 Cellulitis of right toe; J44.9 Chronic obstructive pulmonary disease, unspecified; I10 Essential (primary) hypertension; M19.90 Unspecified osteoarthritis, unspecified site; Z79.02 Long term (current) use of antithrombotics/antiplatelets; Z79.01 Long term (current) use of anticoagulants; Z79.899 Other long term (current) drug therapy; Z88.8 Allergy status to other drugs, medicaments and biological substances; Z51.5 Encounter for palliative care | CPT/HCPCS: G0463 ==

== ENCOUNTER 2020-02-11 01:26 | Day surgery (SDC) | payer MEDICARE, OTHER | END 2020-02-11 22:56 | disposition home or self-care (01) | LOC: WOUND 01:26 | DX: L97.512 Non-pressure chronic ulcer of other part of right foot with fat layer exposed (principal); I73.9 Peripheral vascular disease, unspecified; J44.9 Chronic obstructive pulmonary disease, unspecified; I10 Essential (primary) hypertension; E03.9 Hypothyroidism, unspecified; Z79.899 Other long term (current) drug therapy ==

== ENCOUNTER 2020-02-27 00:29 | Day surgery (SDC) | payer MEDICARE, OTHER | END 2020-02-27 23:15 | disposition home or self-care (01) | LOC: WOUND 00:29 | DX: I96 Gangrene, not elsewhere classified (principal); L97.512 Non-pressure chronic ulcer of other part of right foot with fat layer exposed; L03.031 Cellulitis of right toe; M19.90 Unspecified osteoarthritis, unspecified site; J44.9 Chronic obstructive pulmonary disease, unspecified; I10 Essential (primary) hypertension; E03.9 Hypothyroidism, unspecified; Z87.891 Personal history of nicotine dependence; Z89.431 Acquired absence of right foot; Z88.8 Allergy status to other drugs, medicaments and biological substances | CPT/HCPCS: G0463 ==

== ENCOUNTER 2020-03-12 01:23 | Day surgery (SDC) | payer MEDICARE, OTHER | END 2020-03-12 23:16 | disposition home or self-care (01) | LOC: WOUND 01:23 | DX: I96 Gangrene, not elsewhere classified (principal); L97.512 Non-pressure chronic ulcer of other part of right foot with fat layer exposed; L03.031 Cellulitis of right toe; J44.9 Chronic obstructive pulmonary disease, unspecified; I10 Essential (primary) hypertension; M19.90 Unspecified osteoarthritis, unspecified site; E03.9 Hypothyroidism, unspecified; Z87.891 Personal history of nicotine dependence; Z89.421 Acquired absence of other right toe(s); Z88.8 Allergy status to other drugs, medicaments and biological substances; Z79.02 Long term (current) use of antithrombotics/antiplatelets; Z79.01 Long term (current) use of anticoagulants; Z79.899 Other long term (current) drug therapy | CPT/HCPCS: G0463 ==

== ENCOUNTER 2020-03-19 00:28 | Day surgery (SDC) | payer MEDICARE, OTHER | END 2020-03-19 22:46 | disposition home or self-care (01) | LOC: WOUND 00:28 | DX: L97.512 Non-pressure chronic ulcer of other part of right foot with fat layer exposed (principal); I73.9 Peripheral vascular disease, unspecified; I10 Essential (primary) hypertension; J44.9 Chronic obstructive pulmonary disease, unspecified; E03.9 Hypothyroidism, unspecified; D72.820 Lymphocytosis (symptomatic); F17.210 Nicotine dependence, cigarettes, uncomplicated; Z89.421 Acquired absence of other right toe(s); Z96.642 Presence of left artificial hip joint; Z98.62 Peripheral vascular angioplasty status | CPT/HCPCS: G0463 ==

== ENCOUNTER 2020-03-25 10:20 | Day surgery (SDC) | payer MEDICARE, OTHER ==
[~2020-03-25] VITALS: Ht 167.6 cm; Wt 56.4 kg
--- NOTE | 2020-03-25 14:41 | NUR ---
1418 PATIENT ARRIVED BACK SLIVER LAPPER WITH LEFT GROIN SITE DRESSING, NO HEMATOMA, NO BLEEDING. MONITOR APPLIED AND CALL LIGHT N REACH. PATIENT AWAKE AND TALKING WITH STAFF. HOB UP 10 DEGREES AND IN REVERSE TRENDELENBERG. PULSES CHECKED. RIGHT FOOT WITH PT DRESSING, MARY BETH PAD IN PLACE WITH TEGADERM OVER. NO BLEEDING. DOPPLER PULSES NOTED. GREAT TOE DISCOLORED BLUISH, UNCHANGED FROM PRE PROCEDURE. CALL LIGHT IN REACH. PATIENT TAKING SMALL SIPS OF APPLE JUICE.
--- NOTE | 2020-03-25 16:28 | NUR ---
PT SITTING UP IN BED WITH HOB ELEVATED, GROIN SITE STABLE.
--- NOTE | 2020-03-25 17:17 | NUR ---
PT DRESSED PER SELF. DISCHARGE INSTRUCTIONS REVIEWED WITH PT, VERBALALIZES UNDERSTANDING OF INSTRUCTIONS. SALINE LOCK REMOVED WITH CATHETER INTACT. GROIN AND PT SITES STABLE. PT TO PRIVATE VEHICLE PER W/C WITH ONE STAFF.
== END 2020-03-25 22:51 | disposition home or self-care (01) ==
LOC: MHTC 10:20 → ORSCMMR 10:21 → MHTC 10:24
DX: I70.221 Atherosclerosis of native arteries of extremities with rest pain, right leg (principal); F17.210 Nicotine dependence, cigarettes, uncomplicated; J44.9 Chronic obstructive pulmonary disease, unspecified; I10 Essential (primary) hypertension; R73.03 Prediabetes; E78.00 Pure hypercholesterolemia, unspecified; E05.90 Thyrotoxicosis, unspecified without thyrotoxic crisis or storm; F41.9 Anxiety disorder, unspecified; Z89.421 Acquired absence of other right toe(s)
CPT/HCPCS: 36140; 37224; 37228; 75625; 75716; 75774; 76937; 99152; 99153; C1725; C1760; C1769; C1887; C1894; J1644; J2250; J3010; J7030; J7040; J7050; Q9967

== ENCOUNTER 2020-04-01 00:17 | Day surgery (SDC) | payer MEDICARE, OTHER | END 2020-04-01 23:17 | disposition home or self-care (01) | LOC: WOUND 00:17 | DX: I96 Gangrene, not elsewhere classified (principal); L97.512 Non-pressure chronic ulcer of other part of right foot with fat layer exposed; I10 Essential (primary) hypertension; J44.9 Chronic obstructive pulmonary disease, unspecified; E03.9 Hypothyroidism, unspecified; Z79.899 Other long term (current) drug therapy; Z87.891 Personal history of nicotine dependence | CPT/HCPCS: A9270 ==

== ENCOUNTER 2020-04-08 00:30 | Day surgery (SDC) | payer MEDICARE, OTHER | END 2020-04-08 22:54 | disposition home or self-care (01) | LOC: WOUND 00:30 | DX: T87.53 Necrosis of amputation stump, right lower extremity (principal); L03.031 Cellulitis of right toe; I73.9 Peripheral vascular disease, unspecified; J44.9 Chronic obstructive pulmonary disease, unspecified; I10 Essential (primary) hypertension; E03.9 Hypothyroidism, unspecified; D72.820 Lymphocytosis (symptomatic); T87.89 Other complications of amputation stump; Z98.62 Peripheral vascular angioplasty status; Z87.891 Personal history of nicotine dependence; Z89.421 Acquired absence of other right toe(s); Z88.2 Allergy status to sulfonamides; Z88.8 Allergy status to other drugs, medicaments and biological substances | CPT/HCPCS: A9270 ==

== ENCOUNTER 2020-04-15 00:11 | Day surgery (SDC) | payer MEDICARE, OTHER | END 2020-04-15 23:45 | LOC: WOUND 00:11 | DX: L97.512 Non-pressure chronic ulcer of other part of right foot with fat layer exposed (principal); I73.9 Peripheral vascular disease, unspecified; J44.9 Chronic obstructive pulmonary disease, unspecified; I10 Essential (primary) hypertension; Z87.891 Personal history of nicotine dependence; Z89.421 Acquired absence of other right toe(s) | CPT/HCPCS: A9270 ==

== ENCOUNTER 2020-04-22 01:01 | Day surgery (SDC) | payer MEDICARE, OTHER | END 2020-04-22 22:56 | disposition home or self-care (01) | LOC: WOUND 01:01 | DX: T87.89 Other complications of amputation stump (principal); L97.512 Non-pressure chronic ulcer of other part of right foot with fat layer exposed; I73.9 Peripheral vascular disease, unspecified; J44.9 Chronic obstructive pulmonary disease, unspecified; I10 Essential (primary) hypertension; Z87.891 Personal history of nicotine dependence | CPT/HCPCS: A9270 ==

== ENCOUNTER 2020-05-08 00:18 | Day surgery (SDC) | payer MEDICARE, OTHER | END 2020-05-08 23:47 | disposition home or self-care (01) | LOC: WOUND 00:18 | DX: T87.89 Other complications of amputation stump (principal); L97.512 Non-pressure chronic ulcer of other part of right foot with fat layer exposed; I73.9 Peripheral vascular disease, unspecified; J44.9 Chronic obstructive pulmonary disease, unspecified; I10 Essential (primary) hypertension; E03.9 Hypothyroidism, unspecified; Z87.891 Personal history of nicotine dependence | CPT/HCPCS: A9270 ==

== ENCOUNTER 2020-05-15 00:07 | Day surgery (SDC) | payer MEDICARE, OTHER | END 2020-05-15 23:05 | disposition home or self-care (01) | LOC: WOUND 00:07 | DX: T87.89 Other complications of amputation stump (principal); L97.512 Non-pressure chronic ulcer of other part of right foot with fat layer exposed; I73.9 Peripheral vascular disease, unspecified; J44.9 Chronic obstructive pulmonary disease, unspecified; I10 Essential (primary) hypertension; E03.9 Hypothyroidism, unspecified; Z87.891 Personal history of nicotine dependence; Z87.81 Personal history of (healed) traumatic fracture; Z96.7 Presence of other bone and tendon implants | CPT/HCPCS: A9270; G0463 ==

== ENCOUNTER 2020-05-22 00:17 | Day surgery (SDC) | payer MEDICARE, OTHER | END 2020-05-22 23:00 | disposition home or self-care (01) | LOC: WOUND 00:17 | DX: I96 Gangrene, not elsewhere classified (principal); L97.512 Non-pressure chronic ulcer of other part of right foot with fat layer exposed; I73.9 Peripheral vascular disease, unspecified; I10 Essential (primary) hypertension; E03.9 Hypothyroidism, unspecified; J44.9 Chronic obstructive pulmonary disease, unspecified; L03.031 Cellulitis of right toe; Z87.891 Personal history of nicotine dependence; Z89.421 Acquired absence of other right toe(s) | CPT/HCPCS: A9270 ==

== ENCOUNTER 2020-05-29 00:18 | Day surgery (SDC) | payer MEDICARE, OTHER | END 2020-05-29 23:00 | disposition home or self-care (01) | LOC: WOUND 00:18 | DX: T87.89 Other complications of amputation stump (principal); L97.512 Non-pressure chronic ulcer of other part of right foot with fat layer exposed; I73.9 Peripheral vascular disease, unspecified; J44.9 Chronic obstructive pulmonary disease, unspecified; I10 Essential (primary) hypertension; E03.9 Hypothyroidism, unspecified; D72.820 Lymphocytosis (symptomatic); Z87.891 Personal history of nicotine dependence; Z87.81 Personal history of (healed) traumatic fracture | CPT/HCPCS: A9270; G0463 ==

== ENCOUNTER 2020-06-05 00:09 | Day surgery (SDC) | payer MEDICARE, OTHER | END 2020-06-05 23:37 | disposition home or self-care (01) | LOC: WOUND 00:09 | DX: L97.512 Non-pressure chronic ulcer of other part of right foot with fat layer exposed (principal); I73.9 Peripheral vascular disease, unspecified; J44.9 Chronic obstructive pulmonary disease, unspecified; I10 Essential (primary) hypertension; Z87.891 Personal history of nicotine dependence | CPT/HCPCS: G0463 ==

== ENCOUNTER → 2020-08-10 | Outpatient (CLI) | payer MEDICARE, OTHER | END | disposition home or self-care (01) | LOC: LAB 15:00 → LAB SHORT 15:00 | DX: L03.031 Cellulitis of right toe (principal) | CPT/HCPCS: 87070; 87205 ==

== ENCOUNTER 2020-08-14 06:14 | Day surgery (SDC) | payer MEDICARE, OTHER ==
[~2020-08-14] VITALS: Ht 165.1 cm; Wt 59.0 kg
[2020-08-14 07:25] LABS: BASOPHILS ABSOLUTE AUTO 0.07 K/mm3 (0.00-0.23); BASOPHILS PERCENT AUTO 1 % (0-2); EOSINOPHILS ABSOLUTE AUTO 0.15 K/mm3 (0.00-0.68); EOSINOPHILS PERCENT AUTO 2 % (0-6); Hematocrit 37.1 % (33.0-51.0); Hemoglobin 12.2 g/dL (11.5-16.0); IMMATURE GRAN ABSOLUTE AUTO 0.02 K/mm3 (0.00-0.10); IMMATURE GRAN PERCENT AUTO 0 % (0-1); LYMPHOCYTES ABSOLUTE AUTO 3.58 K/mm3 (0.84-5.20); LYMPHOCYTES PERCENT AUTO 51 % (21-46); MONOCYTES ABSOLUTE AUTO 0.53 K/mm3 (0.16-1.47); MONOCYTES PERCENT AUTO 8 % (4-13); Mean Corpuscular HGB 32.4 pg (26.0-34.0); Mean Corpuscular HGB Conc 32.9 g/dL (31.5-36.5); Mean Corpuscular Volume 99 fL (80-100); Mean Platelet Volume 9.3 fL (9.1-12.4); NEUTROPHILS ABSOLUTE AUTO 2.69 K/mm3 (1.96-9.15); NEUTROPHILS PERCENT AUTO 38 % (41-73); Platelet Count 287 K/mm3 (150-400); RDW Standard Deviation 51.2 fL (35.1-46.3); Red Blood Cell Count 3.76 M/mm3 (3.80-5.20); White Blood Cell Count 7.04 K/mm3 (4.00-11.30)
[2020-08-14] MEDS ORDERED: CEPH500 PO (07:33)
[2020-08-14 07:40] LABS: International Normalized Ratio 0.95; Prothrombin Time Results 10.3 Sec (9.7-11.5)
[2020-08-14 07:44] LABS: Anion Gap 4 mmol/L (6-16); Blood Urea Nitrogen 18 mg/dL (8-24); Bun/Creatinine Ratio 21.1 (12.0-20.0); CO2, Blood 26 mmol/L (21-32); Calcium, Blood 9.6 mg/dL (8.5-10.1); Chloride, Blood 108 mmol/L (98-108); Creatinine, Blood 0.85 mg/dL (0.40-1.00); Glomerular Filtration Rate >60 (60-); Glucose, Blood 82 mg/dL (70-99); Potassium, Blood 4.1 mmol/L (3.5-5.5); Sodium, Blood 138 mmol/L (136-145)
--- NOTE | 2020-08-14 10:41 | NUR ---
PATIENT BROUGHT BACK TO THE [facility] WITH DESTINATION SHEATH AND INFUSION CATHETER IN PLACE. HEPARIN AND TPA DRIPS ORDERED TO INFUSE OVER THE NEXT FEW HOURS. PATIENT PLACED ON [facility] MONITOR CAN CALL LIGHT IN REACH. PATIETN IS FLAT IN REVERSE TRENDELENBERG FOR COMFORT. SIDE RAILS UP X 2. VVS. SLEEPY BUY WAKES WITH VERBAL STIMULI.
--- NOTE | 2020-08-14 10:52 | NUR ---
TPA @ 2 MG/HR = 50 ML/HR STARTED TO THE INFUSION CATHETER. HEPARIN GTT @ 800UNITS/HR = 16 ML/HR TO THE SIDEPORT OF THE DESTINATION SHEATH STARTED. VERIFIED BY TWO RN'S AND ON THE INFUSION PUMP. WRITTEN ORDER VERIFIED BY TWO RN'S ALSO.
--- NOTE | 2020-08-14 11:43 | NUR ---
BEAR HUGGER APPLIED. CONTINUING TO REMIND PATIENT TO KEEP HEAD FLAT ON PILLOW AND NOT BEND THE LEFT LEG.
--- NOTE | 2020-08-14 12:55 | NUR ---
PATIENT REPOSITIONED TO THE RIGHT SIDE WITH PILLOW SUPPORT. HOB FLAT.
--- NOTE | 2020-08-14 14:12 | NUR ---
PATIENT AWAKE AND PLACED ON THE BEDPAN, VOIDED 500+ URINE. OFF BEDPANA ND PERICARE PERFORMED. REPOSITIONED IN THE BED AND BEAR HUGGER OFF, PATIENT TO HOT. CALLED HER NIECE AND SHE WAS ABLE TO TALK TO HER NIECE ON THE BEDSIDE PHONE. CALL LIGHT IN REACH. REMIANS ON BEDREST WITH LEFT LEG STRAIGHT. HEPARIN AND TPA INFUSIONS CONTINUED ORDERED.
--- NOTE | 2020-08-14 15:06 | NUR ---
1445 PATIENT RETURNED TO THE [facility] VIA STRETCHER WITH HEPARIN/TPA INFUSING ORDERED.
--- NOTE | 2020-08-14 16:27 | NUR ---
PATIENT REPOSITIONED UP IN THE BED AND HOB UP 15 DEGREES. SOCKS PLACED ON BOTH FEET, DUE TO BEING COOL. PATIENT STILL CRYING/TEARY FROM FOOT PAIN/NERVE TYPE PAIN. OXYCODONE GIVEN EARLIER AND NO RELIEF OF THIS TIME. ENCOURAGED PATIENT TO EAT, SHE ATE SMALL AMOUNT OF PUDDING AND REFUSED THE REST OF THE MEAL.
--- NOTE | 2020-08-14 16:45 | NUR ---
PATIENT FELL OFF TO SLEEP. PATINET APPEARS COMFORTABLE AND REMAINS ON THE MONITOR. CALL LIGHT IN REACH.
--- NOTE | 2020-08-14 17:41 | NUR ---
1730 PATIENT UP OOB WITH ASSISTANCE TO THE RESTROOM. WALKING WITH A WALKER. FOOT BECOMING MORE RED AND BLANCHES TO TOUCH WHEN BACK TO BED. PATIENT VOIDED. GROIN LFA CHECKED. DRESSING CDI. SOFT, NO HMEATOMA, NO BRUISING.
--- NOTE | 2020-08-14 17:42 | NUR ---
PATIENT AND RN REVIEWED ALL THE DISCHARGE INSTRUCTIONS AND SIGNED COPIES GIVEN TO THE PATIENT. THE OFFICE WILL CALL WITH A FOLLOW UP APPOINTMENT IN FOUR WEEKS. PATIENT ENCOURAGED TO WALK AND CEASE SMOKING. CONTINUE ALL MEDICAITONS AND RESUME PLAVIX AND XARELTO ORDERED. BENEDICTOTENT VERBALIZED UNDERSTANDING OF INSTRUCTIOINS AND NO FURTHER QUESTIONS. PIV REMOVED AND PRESSURE DRESSING APPLIED. PAIN IS A 6/10 IN THE RIGHT FOOT. PATIENT DO NOT REMEMBER TAKING THE OXYCODONE EARLIER. INSTRUCTED PATIENT TO RESUME HER PAIN MEDICAITON REGEIME AT HOME AFTER 1900 THIS EVENING. (FOUR HOURS SINCE HER LAST DOSE HERE. PATIENT VERBALIZED UNDERSTANDING.
--- NOTE | 2020-08-14 18:17 | NUR ---
PATEINT DISCHARGED HOME WITH ALL BELONGINGS AND WILL FOLLOW UP IN FOUR WEEKS.
== END 2020-08-14 22:49 | disposition home or self-care (01) ==
LOC: MHTC 06:14
PROVIDERS: Radiology Diagnostic Radiology
DX: I70.213 Atherosclerosis of native arteries of extremities with intermittent claudication, bilateral legs (principal); G89.4 Chronic pain syndrome; J44.9 Chronic obstructive pulmonary disease, unspecified; I10 Essential (primary) hypertension; E21.3 Hyperparathyroidism, unspecified; R73.03 Prediabetes; F17.210 Nicotine dependence, cigarettes, uncomplicated; Z88.8 Allergy status to other drugs, medicaments and biological substances; Z79.899 Other long term (current) drug therapy
CPT/HCPCS: 36415; 37211; 37227; 37228; 37232; 37252; 75710; 75716; 75774; 76937; 80048; 85025; 85347; 85610; 99152; 99153; A9270; C1714; C1725; C1751; C1757; C1760; C1769; C1874; C1887; C1894; C2623; J1644; J2060; J2250; J2997; J3010; J7030; J7040; J7050; Q9967

== ENCOUNTER 2020-10-13 09:05 | Inpatient (IN) | payer MEDICARE, OTHER ==
[~2020-10-13] VITALS: Ht 165.1 cm; Wt 59.0 kg
[~2020-10-13 09:05] MED LIST changes: +ALEN70 PO; +Budeprion Xl300 MG PO; +CHANTIX1 EACH PO; +Calcium Acetat667 MG PO; +FEROSUL325 M1 PO; +METHIMAZOLE5 M1 PO
--- NOTE | 2020-10-13 16:12 | NUR ---
PT REPORTING R FOOT DISCOMFORT POST PROCEDURE, 12/21, SHARP IN CHARACTER. DR PATEL NOTIFIED, ORDERS RECEIVED; ADMINISTERED 50 MCG IV FENTANYL.
--- NOTE | 2020-10-13 19:26 | NUR ---
ICU ADMISSION, END OF SHIFT PT TO ICU 15 FROM CHEMICAL PRODUCTION ENGINEER AT 1645, REPORT RECEIVED FROM CHEMICAL PRODUCTION ENGINEER STAFF. PT AWAKE, ORIENTED X4, 10/10 PAIN TO ANTERIOR R LOWER LEG AND FOOT, MEDICATED WITH FENTANYL AND VERSED PER ORDERS WITH GOOD RESULTS, O2 2L/NC PLACED FOR DESAT AFTER MEDS, PT SLEEPY BUT WAKES EASILY. LS CLEAR, DIMINISHED IN BASES. HR SBR 50'S, BP ELEVATED BUT COMING DOWN AFTER PAIN MEDS. 20G IV TO RAC WITH HEPARIN INFUSING AT 300U/HR PER ORDERS. SHEATH IN PLACE TO L GROIN, SITE WNL, SOFT, NO HEMATOMA OR BLEEDING NOTED, DRESSING CDI. ACTIVASE INFUSING AT 1MG/HR PER ORDERS VIA L GROIN SHEATH. RLE COOL TO TOUCH, CAP REFILL SLUGGISH, PURPLE DISCOLORATION TO 3 REMAINING TOES, COLOR IMPROVING ACCORDING TO CHEMICAL PRODUCTION ENGINEER STAFF. PULSES TO RLE BY DOPPLER ONLY. LLE ALSO COOL TO TOUCH WITH SLUGGISH CAP REFILL, NO DISCOLORATION NOTED. 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 GROIN SHEATH PRECAUTIONS IN PLACE, PT AWARE AND COMPLIANT. NEW ORDERS FROM DR. PATEL, DINVEE GIVEN, PT TO BE NPO AT MIDNIGHT TO GO BACK TO CHEMICAL PRODUCTION ENGINEER IN AM TO CHECK PROGRESS OF ALTEPLASE INFUSION. PT RESTING IN BED WATCHING TV, PAIN CONTROLLED AT THIS TIME.
--- NOTE | 2020-10-13 19:57 | NUR ---
CARE ASSUMPTION PT RESTING W MINIMAL PAIN AT CHANGE OF SHIFT. PT ASSISTED IN USING THE BEDPAN TO VOID. GROIN SHEATH SHOWS NO S/S OF ACTIVE BLEEDING. BP SLIGHTLY ELEVATED AND O2 >94% ON 2L NC. PT DENIES ANY OTHER NEEDS AT THIS TIME.
--- NOTE | 2020-10-14 02:47 | NUR ---
UPDATE PT HAS C/O PAIN TRHAT IS NOT BEING RELIEVED W FENTANYL SO DR. PATEL WAS CALLED BY THIS RN AND ORDER FOR DILUADID WAS OBTAINED. AT THIS TIME THIS RN ALSO TOLD DR. PATEL THAT THE PT HAD SOME BLUE DICOLERATION AROUND HER R GREAT TOE, THE PROVIDER EXPLAINED THAT THIS IS AN EXPECTED OBSERVATION THE CLOTS BREAK DOWN. MATHEMATICAL SCIENCES PROFESSOR HEIDI NOTIFIED OF THE UPDATE.
--- NOTE | 2020-10-14 06:29 | NUR ---
REVENUE ACCOUNTANT SUMMARY PT IS AXO X4 ANSWERING QUESTIONS APPROPRIATELY ALL SHIFT. GROIN SHEATH HAS SHOWED NO S/S OF ACTIVE BLEEDING THIS SHIFT. ALTEPLASE AND HEPARIN GTT RUNNING ALL SHIFT UNINTERUPTED. PT'S PULSE ON ANTERIOR R FOOT IS UNDETECTABLE W DOPPLER THIS AM THOUGH COLOR APPEARS BETTER EXCEPT FOR NEW DISCOLORATION AT BASE OF R BIG TOE. DR. PATEL CALLED FOR ADDITIONAL PAIN MEDICATION THE PT WAS REPORTING 10/10 PAIN DESPITE Q1H MEDICATION PER EMAR, PT GIVEN 1MG DILAUDID W RELIEF. DR. PATEL NOTIFIED OF THE CHANGE IN COLORT AROUND R BIG TOE AND HE STATED THAT HE WAS NOT CONCERNED. O2 SATS >94% ON 2L VIA NC. BP SLIGHTLY HYPERTENSIVE THIS SHIFT ALTHOUGH PT IN PAIN FOR MOST OF THE NIGHT. PT NPO SINCE MIDNIGHT IN ANTICIPATION OF PROCEDURE. WILL REPORT TO ONCOMING RN.
--- NOTE | 2020-10-14 09:29 | NUR ---
CARE ASSUMED ASSESSMENTS COMPLETED. PT ORIENTED X4, REPORTS 10/10 RLE AND R FOOT PAIN, MEDICATED WITH DILAUDID AND VERSED WITH GOOD RESTULS. LS DIMINISHED, O2 REMAINS ON 2L/NC FOR DROWSINESS AFTER PAIN MEDS, SPO2 >95%. HR SINUS 70'S, BP ELEVATED, AM LISINOPRIL ADMINISTERED. RLE TEMP AND COLOR HAVE IMPROVED, ONE SMALL AREA OF PURPLE DISCOLORATION PROXIMAL TO R GREAT TOE, REST OF LE IS PINK AND WARM WITH IMPROVED CAP REFILL. R PT PULSE BY DOPPLER IS STRONG, UNABLE TO DOPPLE R PEDAL PULSE. LLE PINK, WARM AND DRY WITH PALPABLE PULSES. SHEATH IN PLACE TO L GROIN, SITE WNL, DRESSING CDI, GROIN ACCESS PRECAUTIONS IN PLACE. ALTEPLASE INFUSING AT 0.5MG/HR VIA L GROIN SHEATH. HEPARIN INFUSING AT 300U/HR VIA PERIPHERAL LINE. AWAITING WORD FROM MANAGER CARDIOVASCULAR REGARDING REASSESSMENT OF RLE TODAY. PT RESTING, VSS.
--- NOTE | 2020-10-14 14:39 | NUR ---
UPDATE PT RESTING IN BED AT THIS TIME, HAS BEEN MEDICATED TWICE WITH DILAUDID AND VERSED WITH GOOD RESULTS. NO CHANGES NOTED TO RLE, L GROIN SHEATH REMAINS WNL. AM MEDS ADMINISTERED PER MANAGER PARKING, STILL AWAITING PROCEDURE. TPA AND HEPARIN INFUSING PER ORDERS.
--- NOTE | 2020-10-14 15:37 | NUR ---
R FOOT UPDATE PT'S R FOOT APPEARS TO BE EDEMATOUS AND SHINY THIS EVENING, DUSKY DISCOLORATION TO AREA JUST PROXIMAL TO R GREAT TOE IS BECOMING DARKER. R POST TIBIAL PULSE FAINT, R PEDAL PULSE ABSENT. PT RATING PAIN 8-10 TODAY, MEDICATED AT THIS TIME WITH FENTANYL AND VERSED. TPA AND HEPARIN INFUSING ORDERED. DR. PATEL NOTIFIED OF FINDINGS, INSTRUCTIONS TO RESUME TPA INFUSING AND THAT PT WILL BE TAKEN BACK TO ESTATE MANAGER TODAY.
--- NOTE | 2020-10-14 18:00 | NUR ---
PT TO ASH COLLECTOR FOR PVD PROCEDURE AT 1720.
--- NOTE | 2020-10-14 19:29 | NUR ---
1850 RETURN FROM MOLDING AND TRIM INSTALLER TO ICU 15 PT GROGGY FROM SEDATION, WAKES EASILY, ANSWERS QUESTIONS, THEN GOES BACK TO SLEEP. VSS. SHEATH REMAINS IN PLACE TO L GROIN, CATH IN PLACE THROUGH SHEATH WITH TPA INFUSING AT 0.5MG/HR, HEPARIN INFUSING VIA SIDE PORT ON SHEATH AT 500U/HR PER DR. PATEL. CLOTS REMAIN PRESENT IN RLE STENTS, PLAN TO KEEP TPA AND HEPARIN T/O NOC AND RE-CHECK IN AM. R FOOT WITH PT PULSES 1+, R PEDAL PULSE ABSENT. R FOOT REMAINS SWOLLEN AND SHINY WITH DUSKY DISCOLORATION PROXIMAL TO GREAT TOE UNCHANGED. REST OF FOOT/TOES ARE PINK WITH SLUGGISH CAP REFILL, TOES COOL TO TOUCH. GROIN ACCESS PRECAUTIONS IN PLACE.
--- NOTE | 2020-10-15 00:49 | NUR ---
PT HAS BEEN RESTING ON AND OFF SINCE THE START OF MY SHIFT, ASSUMED CARE AT 1900 FROM CASA URRUTIA. PT WITH LEFT LEG STRAIGHT, SHEATH INTACT, ALTEPASE INFUSING @ 0.5MG/HR AND HEPARIN 8.48U/KG/HR OR 10ML/HR. GROIN SITE WITH SMALL AMOUNT OF OOZING, KEEPING LEG STRAIGHT. TURNED BY LOG ROLL TO USE THE BEDPAN, LINENS CHANGED. TOOK A FEW BITES OF DINNER, DIDN'T LIKE IT. MEDICATED PER MAR EACH TIME SHE REQUESTS. RIGHT FOOT WITH PURPLE COLOR IN RIGHT GREAT TOE, SHINY IN APPEARANCE, NO PEDAL PULSES FELT, PT COMPLAINS OF PAIN WITH ANY MOVEMENT, TOUCH OR WRINKLE.
--- NOTE | 2020-10-15 01:41 | NUR ---
PT ROUSES, CALLS FOR PAIN MEDS, RETURNS TO SLEEP, PT APPEARS TO BE DREAMING. GROIN SITE REMAINS INTACT.
--- NOTE | 2020-10-15 05:19 | NUR ---
PT MEDICATED AT JUST BEFORE 0400, CALLED AGAIN FOR MEDS JUST BEFORE 0500. I TOLD HER OK, I WOULD GET THEM, WHILE CHECKING HER MEDICATION OUT OF [facility], SHE CALLS ON THE CALL LIGHT ASKING FOR HER PAIN MEDICATION, I CAME IN WITH HER MEDICATION AND ASKED WHAT SHE NEEDED, SHE SAID, MY TOE IS WORSE, I NEED MY PAIN MEDS. I EXPLAINED THAT IT TAKES ME A COUPLE OF MINUTES TO ACCESS THEM FROM THE MEDICATION MACHINE AND THAT I WAS GETTING THEM. I GAVE HER THE MEDICATION, SHE FELL BACK TO SLEEP.
--- NOTE | 2020-10-15 06:51 | NUR ---
DAVIN HAS SLEPT T/O THE NOC EXCEPT WHEN ASKING FOR PAIN MEDICATIONS. SHE HAS REMAINED WITH THE LEFT LEG STRAIGHT, SITE CLEAR, WITH ALTEPASE AND HEPARIN INFUSING PER ORDERS. NO CHANGES.
--- NOTE | 2020-10-15 09:25 | NUR ---
CARE ASSUMED OF PT AT 0700. PT SLEEPING, RESTLESS AND MOANING. PT AWAKENS TO VOICE AND C/O PAIN TO RIGHT FOOT 12/21. FENT,VERSED AND DILAUDID AVAILABLE PRN. RIGHT FOOT IS WARM AND RED W GOOD CAP REFILL. R PT DOPPLER ONLY, ABSENT R DP. 1+PULSES TO LEFT PT/DP. PT HAS SHEATH TO LEFT GROIN, AREA SOFT WITHOUT BLEEDING OR HEMATOMA. HEPARIN 6ML/HR INFUSING TO SIDE PORT. HEPARIN INCREASED TO 10MLS/HR PER DR PATEL, SEE ORDER. INTEGRILIN AT 0.5MG/HR AND INFUSING THROUGH SHEATH. PT ACCIDNETLY PULLED OUT IV IN SLEEP. POWERGLIDE PLACED TO NATHAN DUE TO POOR VEINS. POWERGLIDE PLACED W/O DIFFICULTY. PT ON 4L O2 VIA N/C THIS AM AND INCREASED TO 6L AFTER FENTANYL PUSH. SATS >90%, RESP 15-20.
--- NOTE | 2020-10-15 14:19 | NUR ---
PT NOW HAS + DOPPLER TO RIGHT D.P. PT REQUIRES FREQUENT DOSES OF FENT FOR PAIN CONTROL, ABLE TO SLEEP ON AND OFF IN BETWEEN FENT DOSES.
--- NOTE | 2020-10-15 15:01 | NUR ---
SHEATH TO LEFT GROIN REMAINS STABLE, UNCHANGED.
--- NOTE | 2020-10-15 16:26 | NUR ---
PT TO COPY CLERK. REPORT GIVEN
--- NOTE | 2020-10-15 17:58 | NUR ---
PT BACK TO ICU FROM SCRAP DROP OPERATOR AT 1745. PT SLEEPING, AROUSES TO VOICE BUT THEN QUICKLY FALLS BACK TO SLEEP. PT NOW HAS STRONG +2 PULSE TO RIGHT DP. RIGHT FOOT VERY WARM AND RED. LEFT SHEATH SITE W ANGIOSEAL. OPSITE WITH SMALL AMT OF BLOOD UNDER DRSG, NO HEMATOMA OR SWELLING. SITE CHECKED W [facility] RN AND TECH. PT TO HAVE HEPARIN PER PHARMACY STARTED PER DR PATEL. PT NOW SURGICAL FLOOR PT. PLAN IS TO BE DISCHARGED HOME IN AM.
--- NOTE | 2020-10-15 18:42 | NUR ---
SMALL AMT OF OOZING TO LEFT GROIN SITE. AREA STILL WITHOUT HEMATOMA OR SWELLING. PT SLEEPING, AROUSES TO VOICE. AWAITING ORDERS FOR HEPARIN GTT FROM PHARMACY.
--- NOTE | 2020-10-15 19:07 | NUR ---
PT LEFT GROIN CONT TO OOZ, AREA SOFT. MARY BETH DRSG PLACED BY HARD METALS HAND ENGRAVER
[2020-10-15 19:52] LABS: International Normalized Ratio 1.24; Prothrombin Time Results 13.2 Sec (9.7-11.5)
--- NOTE | 2020-10-15 19:57 | NUR ---
TOOK OVER CARE AT 1900, PATIENT AROUSES TO VERBAL STIMULI, ALERT TO SELF, SITUATION, PLACE, AND DISORIENTATED TO DAY AWARE OF YEAR. MARY BETH DRESSING INTACT NO BLEEDING NOTED, SOFT TISSUE, CAPREFIL BRISK, + 2 PULSES NOTED ON THE EFFECTIVE RIGHT EXTREMITY, DARK PURPLE DUSKY WARM TO TOUCH GREAT TOE, RIGHT DORSAL FOOT IS MARKED WITH PEN ON AROUND REDDENED AREA NO NOTED INCREASE IN REDNESS. PATIENT WAS ABLE TO TAKE TINY SIPS OF WATER, APPLIED MOISTURIZER TO LIPS VITALS STABLE ON 6L NC AT 97% REPORTED DIPS DOWN IN SATURATIONS WITH PAIN MEDICATION WHILE SLEEPING WILL CONTINUE TO MONITOR.
--- NOTE | 2020-10-15 20:21 | NUR ---
RECEIVED NEW ORDERS TO START HEP GTT @ 15U/KG/HR AT 17.7ML/HR 2ND RN VERIFIED AND STARTED, PATIENT WAS ABLE TO TAKE ORAL MEDICATIONS ONE AT A TIME WITH SMALL SIPS OF WATER, OXYGEN DECREASED TO 2LNC SATURATIONS 92%.
--- NOTE | 2020-10-15 21:29 | NUR ---
THIS LN GAVE REPORT TO SAUMYA CORMIER, PATIENT GOING TO ROOM 230.
--- NOTE | 2020-10-16 01:07 | NUR ---
PT ARRIVED TO ROOM FROM ICU AT APPROX 2100. TRANFERED VIA SLIDING SHEET. PT A&O X4. RESPONDING TO QUESTIONS APPROPRIATLY. VS WNL. O2 >93% ON 2L VIA NC. LUNGS CLEAR THROUGHOUT. TELE DISCONTINUED. LEFT GROIN SITE C/D/I WITH DRY BLOODY DRG PRESENT. NEW MARY BETH DRESSING PLACED AT 2300. NO ACTIVE BLEEDING AT SITE. UNABLE TO PALPATE OR FIND R PEDAL PULSE VIA DOPPLER, HOWEVER TIBIAL PULSE PRESENT USING DOPPLER. RT FOOT SWOLLEN AND WARM TO TOUCH. CAP REFILL >3 SEC. RT TOE APPEARS DUSKY/PURPLE IN COLOR. 2ND AND 3RD TOE AMPUTATED. PT ABLE TO WIGGLE TOES. REPORTS N/T AT BASELINE. DENIES ANY CHANGES. BRUISING SCATTERED TO BUE'S. POWERGLIDE TO NATHAN INFUSING HEPARIN AT 15 UNITS/KG/HR PER ORDERS. DR. PATEL MANAGING HEP GTT PER REPORT. PT C/O OF PAIN ONCE AND MEDICATED WITH 1MG DILAUDID. PT CURRENTLY APPEARS TO BE RESTING.
[2020-10-16 12:15] LABS: Mean Platelet Volume 10.8 fL (9.1-12.4); Platelet Count 155 K/mm3 (150-400)
--- NOTE | 2020-10-16 14:29 | NUR ---
ASSUMED CARE. PT SLEEPING AT THIS TIME.
--- NOTE | 2020-10-16 15:32 | NUR ---
MESSAGE LEFT WITH DR. PATEL REGARDING BLOOD PRESSURE.
--- NOTE | 2020-10-16 16:02 | NUR ---
HEPARIN DRIP STOPPED AT THIS TIME PER PHYSICIAN ORDER. PLAN IS TO INFUSE 250CC SALINE FOR LOW BP, RECHECK, AND DISCHARGE HOME IF BP IMPROVES. WILL DC WITH XARELTO 15MG PO BID.
--- NOTE | 2020-10-16 18:36 | NUR ---
DISCHARGE PT A/O X4. DR AMANDA DUONG WITH PT DISCHARGING THIS EVENING. NO CHANGES TO HOME MEDS. DC INSTRUCTIONS REVIEWED WITH PT; PT REPORTS NO QUESTIONS OR CONCERNS. INSTRUCTIONS AND PATIENT DEVICE CARD SENT WITH PT. [employer] DC'D WNL. PERSONAL BELONGINGS WITH PT. PT WAITING FOR RIDE AT THIS TIME.
--- NOTE | 2020-10-16 19:25 | NUR ---
discharged at 1924. escorted to vehicle via wheelchair.
[2020-11-19] MEDS ORDERED: FERSU300 PO (14:27)
[2020-11-19] MEDS ORDERED: CALCIUM ACETAT667 MG PO (14:27)
[2020-11-19] MEDS ORDERED: KETO.5OPSO (14:28)
[2020-11-19] MEDS ORDERED: Prinivil10 MG PO (14:28)
[2020-11-19] MEDS ORDERED: POTA10T PO (14:29)
[2020-11-19] MEDS ORDERED: PANT20 PO (14:29)
[2020-11-19] MEDS ORDERED: Ventolin/Prove6.7 GM INH (14:30)
[2020-11-19] MEDS ORDERED: ASCO500 PO (14:32)
== END 2020-10-16 18:45 | disposition home or self-care (01) | DRG 271 ==
LOC: MHTC 09:05 → ICUW 15:56 → MHTC 15:56 → ICUW 10-15 21:35 → SURS 10-15 21:35 → MHTC 10-16 08:30 → SURS 10-16 09:04
PROVIDERS: ADMIT Radiology Diagnostic Radiology
PROC: 3E05317 Introduction of Other Thrombolytic into Peripheral Artery, Percutaneous Approach (ICD-10-PCS; principal; 2020-10-13)
PROC: 04CM3ZZ Extirpation of Matter from Right Popliteal Artery, Percutaneous Approach (ICD-10-PCS; 2020-10-13)
PROC: 04CP3ZZ Extirpation of Matter from Right Anterior Tibial Artery, Percutaneous Approach (ICD-10-PCS; 2020-10-13)
PROC: 04CK3ZZ Extirpation of Matter from Right Femoral Artery, Percutaneous Approach (ICD-10-PCS; 2020-10-13)
PROC: 047P3ZZ Dilation of Right Anterior Tibial Artery, Percutaneous Approach (ICD-10-PCS; 2020-10-13)
PROC: 047M3ZZ Dilation of Right Popliteal Artery, Percutaneous Approach (ICD-10-PCS; 2020-10-13)
PROC: 047K3ZZ Dilation of Right Femoral Artery, Percutaneous Approach (ICD-10-PCS; 2020-10-13)
PROC: 04CK3ZZ Extirpation of Matter from Right Femoral Artery, Percutaneous Approach (ICD-10-PCS; 2020-10-14)
PROC: 04CM3ZZ Extirpation of Matter from Right Popliteal Artery, Percutaneous Approach (ICD-10-PCS; 2020-10-14)
PROC: 047P3ZZ Dilation of Right Anterior Tibial Artery, Percutaneous Approach (ICD-10-PCS; 2020-10-14)
PROC: 047K3ZZ Dilation of Right Femoral Artery, Percutaneous Approach (ICD-10-PCS; 2020-10-14)
PROC: 047M3ZZ Dilation of Right Popliteal Artery, Percutaneous Approach (ICD-10-PCS; 2020-10-14)
PROC: 3E05317 Introduction of Other Thrombolytic into Peripheral Artery, Percutaneous Approach (ICD-10-PCS; 2020-10-14)
PROC: 047K3ZZ Dilation of Right Femoral Artery, Percutaneous Approach (ICD-10-PCS; 2020-10-15)
PROC: 047P3ZZ Dilation of Right Anterior Tibial Artery, Percutaneous Approach (ICD-10-PCS; 2020-10-15)
PROC: 047M3ZZ Dilation of Right Popliteal Artery, Percutaneous Approach (ICD-10-PCS; 2020-10-15)
PROC: 047Y3ZZ Dilation of Lower Artery, Percutaneous Approach (ICD-10-PCS; 2020-10-15)
PROC: 3E05317 Introduction of Other Thrombolytic into Peripheral Artery, Percutaneous Approach (ICD-10-PCS; 2020-10-15)
DX: I70.213 Atherosclerosis of native arteries of extremities with intermittent claudication, bilateral legs (principal); T82.856A Stenosis of peripheral vascular stent, initial encounter; I10 Essential (primary) hypertension; J44.9 Chronic obstructive pulmonary disease, unspecified; Y71.1 Therapeutic (nonsurgical) and rehabilitative cardiovascular devices associated with adverse incidents
CPT/HCPCS: 36415; 37184; 37185; 37211; 37213; 37214; 37224; 37225; 37228; 37232; 75716; 75774; 76937; 80048; 85007; 85018; 85027; 85049; 85347; 85384; 85610; 85730; 99152; 99153; A9270; C1725; C1751; C1760; C1769; C1885; C1887; C1894; C9113; J1170; J1644; J2250; J2997; J3010; J7030; J7040; J7050; Q9967

== ENCOUNTER 2020-10-31 07:13 | Inpatient (IN) | payer MEDICARE, OTHER ==
[~2020-10-31] VITALS: Ht 165.1 cm; Wt 56.6 kg
[2020-10-31] MEDS ORDERED: CEPH500 PO (07:41)
[2020-10-31] MEDS ORDERED: OXYC5 PO (07:46)
--- NOTE | 2020-10-31 11:10 | NUR ---
CATH SADIE AND HEPARIN INFUSION STARTED.
--- NOTE | 2020-10-31 11:39 | NUR ---
FENTANYL 25MCG IV GIVEN NOW FOR PAIN PER DR. TAYLOR ORDERS.
--- NOTE | 2020-10-31 12:45 | NUR ---
PT REPOSITIONED FOR COMFORT. TPA AND HEPARIN CONTINUE TO INFUSE THROUGH RIGHT FEMORAL SHEATH. RIGHT HEEL ELEVATED OFF GURNEY WITH SUPPORT FROM ROLLED TOWEL. PT REPORTS WOUND ON RIGHT ANKLE IS "VERY UNCOMFORTABLE". CALL LIGHT IN REACH.
[2020-10-31 19:48] LABS: Hematocrit 27.7 % (33.0-51.0); Hemoglobin 8.8 g/dL (11.5-16.0)
[2020-10-31 21:51] LABS: BASOPHILS ABSOLUTE AUTO 0.11 K/mm3 (0.00-0.23); BASOPHILS PERCENT AUTO 1 % (0-2); EOSINOPHILS ABSOLUTE AUTO 0.01 K/mm3 (0.00-0.68); EOSINOPHILS PERCENT AUTO 0 % (0-6); Hematocrit 32.8 % (33.0-51.0); Hemoglobin 9.9 g/dL (11.5-16.0); IMMATURE GRAN ABSOLUTE AUTO 0.08 K/mm3 (0.00-0.10); IMMATURE GRAN PERCENT AUTO 1 % (0-1); LYMPHOCYTES ABSOLUTE AUTO 2.62 K/mm3 (0.84-5.20); LYMPHOCYTES PERCENT AUTO 15 % (21-46); MONOCYTES ABSOLUTE AUTO 0.44 K/mm3 (0.16-1.47); MONOCYTES PERCENT AUTO 3 % (4-13); Mean Corpuscular HGB 31.2 pg (26.0-34.0); Mean Corpuscular HGB Conc 30.2 g/dL (31.5-36.5); Mean Corpuscular Volume 104 fL (80-100); Mean Platelet Volume 8.8 fL (9.1-12.4); NEUTROPHILS ABSOLUTE AUTO 14.05 K/mm3 (1.96-9.15); NEUTROPHILS PERCENT AUTO 81 % (41-73); Platelet Count 691 K/mm3 (150-400); RDW Coefficient Variation 13.5 % (11.7-14.2); RDW Standard Deviation 52.1 fL (35.1-46.3); Red Blood Cell Count 3.17 M/mm3 (3.80-5.20); White Blood Cell Count 17.31 K/mm3 (4.00-11.30)
[2020-10-31 22:06] LABS: Anion Gap 8 mmol/L (6-16); Blood Urea Nitrogen 10 mg/dL (8-24); Bun/Creatinine Ratio 15.3 (12.0-20.0); CO2, Blood 20 mmol/L (21-32); Calcium, Blood 8.5 mg/dL (8.5-10.1); Chloride, Blood 111 mmol/L (98-108); Creatinine, Blood 0.66 mg/dL (0.40-1.00); Glomerular Filtration Rate >60 (60-); Glucose, Blood 120 mg/dL (70-99); Potassium, Blood 4.3 mmol/L (3.5-5.5); Sodium, Blood 139 mmol/L (136-145)
--- NOTE | 2020-11-01 05:57 | NUR ---
SHIFT SUMMARY PT RESTED THROUGH MOST OF NIGHT. ONCE ARRIVED FROM [facility], SLEPT AND THEN AWOKE IN LOTS OF PAIN, SEE EMAR. COOPERATIVE WITH CARE PLAN, BUT ANXIOUS ABOUT GOING HOME. SATS >90% ON RA. TELE, NSR 89. ACCESS SITE VIA R GROIN AND R INTERNAL TIBIAL SITE. STENT PLACED IN R ANTERIOR SFA. HAD BEEN FREQUENTLY INCONTINENT - CHANGED X2. R FOOT WOUND - POOR HEALING. HEP GTT RUNNING PER MD. LIKELY DC TODAY HOME. VSS. CALL LIGHT WITHIN REACH, BED IN LOWEST POSITION. WILL CONTINUE TO MONITOR.
[2020-11-01 06:15] LABS: BASOPHILS ABSOLUTE AUTO 0.11 K/mm3 (0.00-0.23); BASOPHILS PERCENT AUTO 1 % (0-2); EOSINOPHILS ABSOLUTE AUTO 0.03 K/mm3 (0.00-0.68); EOSINOPHILS PERCENT AUTO 0 % (0-6); Hematocrit 26.7 % (33.0-51.0); Hemoglobin 7.9 g/dL (11.5-16.0); IMMATURE GRAN ABSOLUTE AUTO 0.05 K/mm3 (0.00-0.10); IMMATURE GRAN PERCENT AUTO 0 % (0-1); LYMPHOCYTES ABSOLUTE AUTO 3.13 K/mm3 (0.84-5.20); LYMPHOCYTES PERCENT AUTO 21 % (21-46); MONOCYTES ABSOLUTE AUTO 1.55 K/mm3 (0.16-1.47); MONOCYTES PERCENT AUTO 10 % (4-13); Mean Corpuscular HGB 31.5 pg (26.0-34.0); Mean Corpuscular HGB Conc 29.6 g/dL (31.5-36.5); Mean Corpuscular Volume 106 fL (80-100); Mean Platelet Volume 8.8 fL (9.1-12.4); NEUTROPHILS ABSOLUTE AUTO 10.34 K/mm3 (1.96-9.15); NEUTROPHILS PERCENT AUTO 68 % (41-73); Platelet Count 550 K/mm3 (150-400); RDW Coefficient Variation 13.6 % (11.7-14.2); RDW Standard Deviation 52.9 fL (35.1-46.3); Red Blood Cell Count 2.51 M/mm3 (3.80-5.20); White Blood Cell Count 15.21 K/mm3 (4.00-11.30)
[2020-11-01 06:40] LABS: Anion Gap 8 mmol/L (6-16); Blood Urea Nitrogen 11 mg/dL (8-24); Bun/Creatinine Ratio 16.2 (12.0-20.0); CO2, Blood 19 mmol/L (21-32); Calcium, Blood 8.1 mg/dL (8.5-10.1); Chloride, Blood 112 mmol/L (98-108); Creatinine, Blood 0.68 mg/dL (0.40-1.00); Glomerular Filtration Rate >60 (60-); Glucose, Blood 95 mg/dL (70-99); Potassium, Blood 4.7 mmol/L (3.5-5.5); Sodium, Blood 139 mmol/L (136-145)
--- NOTE | 2020-11-01 07:54 | NUR ---
[facility] Received report from night nurse. Per report the pt has c/o ongoing acute and chronic pain which stems from the wounds in her right leg and foot. She continues on the heparin gtt as managed by the pharmacy. She is awake and alert sitting up in bed, she has her call light in reach and is able to make her needs known.
--- NOTE | 2020-11-01 17:11 | NUR ---
Shift Summary Pt is a/o x 4 and does have ongoing pain that is acute and chronic. She was very anxious this monring but once we came up with a plan for pain management she was able to calm down. Her heparin gtt continues to run per pharmacy. Dr Rogel came to see her today and changed the dressing on her right foot. Her pulses could be found with a doppler. She has an access site to her right groin that is CDI. She has been cooperative with her care and is able to make her needs known. She has has call light in reach.
--- NOTE | 2020-11-01 19:25 | NUR ---
TOOK OVER CARE AT 1900 PATIENT IS ALERT AND ORIENTATED, HEP GTT 15U/KG/16.5ML/HR, REPORTS PAIN IS CURRENTLY UNDER CONTROL, AOX4 ABLE TO MAKE NEEDS KNOWN, CALL LIGHT IS WITHIN REACH.
--- NOTE | 2020-11-02 03:01 | NUR ---
CONFIRMED WITH PHARMACY NO CHANGES TO HEPARIN GTT NEXT APTT 0400.
[2020-11-02 05:26] LABS: BASOPHILS ABSOLUTE AUTO 0.07 K/mm3 (0.00-0.23); BASOPHILS PERCENT AUTO 1 % (0-2); EOSINOPHILS ABSOLUTE AUTO 0.31 K/mm3 (0.00-0.68); EOSINOPHILS PERCENT AUTO 3 % (0-6); Hematocrit 20.9 % (33.0-51.0); Hemoglobin 6.5 g/dL (11.5-16.0); IMMATURE GRAN ABSOLUTE AUTO 0.04 K/mm3 (0.00-0.10); IMMATURE GRAN PERCENT AUTO 0 % (0-1); LYMPHOCYTES ABSOLUTE AUTO 2.38 K/mm3 (0.84-5.20); LYMPHOCYTES PERCENT AUTO 24 % (21-46); MONOCYTES ABSOLUTE AUTO 0.76 K/mm3 (0.16-1.47); MONOCYTES PERCENT AUTO 8 % (4-13); Mean Corpuscular HGB 31.4 pg (26.0-34.0); Mean Corpuscular HGB Conc 31.1 g/dL (31.5-36.5); Mean Platelet Volume 9.1 fL (9.1-12.4); NEUTROPHILS ABSOLUTE AUTO 6.25 K/mm3 (1.96-9.15); NEUTROPHILS PERCENT AUTO 64 % (41-73); Platelet Count 480 K/mm3 (150-400); RDW Coefficient Variation 13.7 % (11.7-14.2); RDW Standard Deviation 50.8 fL (35.1-46.3); Red Blood Cell Count 2.07 M/mm3 (3.80-5.20); White Blood Cell Count 9.81 K/mm3 (4.00-11.30)
[2020-11-02 05:27] LABS: Mean Corpuscular Volume 101 fL (80-100)
[2020-11-02 05:40] LABS: Anion Gap 6 mmol/L (6-16); Blood Urea Nitrogen 9 mg/dL (8-24); Bun/Creatinine Ratio 12.9 (12.0-20.0); CO2, Blood 26 mmol/L (21-32); Calcium, Blood 8.7 mg/dL (8.5-10.1); Chloride, Blood 110 mmol/L (98-108); Glomerular Filtration Rate >60 (60-); Glucose, Blood 109 mg/dL (70-99); Potassium, Blood 3.9 mmol/L (3.5-5.5); Sodium, Blood 142 mmol/L (136-145)
--- NOTE | 2020-11-02 06:36 | NUR ---
NO CHANGES OVER NIGHT, PATIENT C/O OF COBAND WRAP ON FOOT PREFERS GAUZE. PAIN MEDICATION GAVE LITTLE RELIEF TO PATIENT, PATIENT ALSO EXPLAINS AT HOME SHE SLEEPS SIDEWAYS SO HER FOOT CAN BE OFF THE BED AND IS HAVING A HARD TIME GETTING COMFORTABLE.
[2020-11-02 14:11] LABS: Hematocrit 23.1 % (33.0-51.0); Hemoglobin 7.6 g/dL (11.5-16.0)
--- NOTE | 2020-11-02 15:39 | NUR ---
REPORT CALLED TO DANIEL IN [facility]. RECEIVED ORDER FOR OK FOR NO TELE. PT AWARE OF TRANSFER. DRESSING REMAINS INTACT TO R GROIN AND ANKLE. NO RESP DISTRESS THROUGH STAY. MEDICATED FOR PAIN NEEDED FOR RLE PAIN. BLOOD TRANSFUSION COMPLETED EARLIER.
--- NOTE | 2020-11-02 15:48 | NUR ---
HEPARIN DOSE CHANGED PER NEW PHARMACY ORDERS TO 18 UNITS AN HOUR IVF. DOSE VERIFIED BY SECOND RN MAGGIE TIJERINA FOR INFUSION START.
--- NOTE | 2020-11-02 15:50 | NUR ---
PATIENT RESTING IN BED WITH CALL LIGHT IN REACH. ORIENTED TO ROOM AND CALL LIGHT SYSTEM. INFORMED PATIENT SHE IS STILL ON BEDREST ORDERS SO USED BEDPAN FOR NEEDING TO VOID.ELOY CARE PERFORMED. PT DENIES NEED FOR PAIN MEDICATION OR OTHER NEEDS AT PRESENT. WILL CONTINUE TO MONITOR.
--- NOTE | 2020-11-02 17:46 | NUR ---
PATIENT RESTING IN BED - STATING "PAIN IS DOING BETTER SINCE MY OXY" DENIES ANY OTHER NEEDS AT PRESENT. CALL LIGHT IN REACH WITH NO SIGNS OF DISTRESS NOTED.
--- NOTE | 2020-11-02 18:12 | NUR ---
PATIENT ASSISTED ON TO BED SAENZ FEELING LIKE SHE NEEDED TO HAVE A BOWEL MOVEMENT. NO RESULTS BUT PASSING GAS WITH SUCCESS. ELOY CARE PERFORMED. CALLL LIGHT GIVEN BACK TO PATIENT. SHE STATES SHE WOULD LIKE TO TRY TO SLEEP NOW. DENIES OTHER NEEDS AT PRESENT.
--- NOTE | 2020-11-02 21:35 | NUR ---
LATE ENTRY 1999-DURING ASSESMENT WOUND ON RIGHT 1ST TOE AND ANKLE NOTED.1ST TOE RED,SWOLLEN, AND FOOT PAINFUL TO TOUCH. LATERAL WOUND ON MALLEOLUS NOTED BUT APPEARS TO NOT BE OPEN OR OOZING. FOOT HAD NON ADHERENT DRESSING ON WITH COBAN WRAP TO THE ANKLE. PT WITH COMPLAINT THAT IT WAS UNCOMFORTABLE. CARE WAS TAKEN TO UNWRAP THE DRESSING. PAD WAS SOAKED IN WARM WATER TO NOT OPEN OR TEAR THE TISSUE. I CLEANED THE WOUND WITH WARM WATER,PEROXIDE,AND THEN SPRAYED THE WOUND KINESIOLOGIST.I GENTLY DABBED IT DRY AND RE-DRESSED IT WITH A NON ADHERENT PAD ON THE 1ST MET,AND AN ABD ON THE LATERAL ANKLE. 4" NIKOS WRAP WAS LOOSELY APPLIED AND PT WAS CONTENT AND TOLERATED THE DRESSING CHANGE WELL. I ALSO CHECKED HER DRESSING ON HER RIGHT HIP/GROIN WHERE HER PROCEDURE WAS ATTEMPTED LAST WEEK. DRESSING 2X2S AND CLEAR TEGADERM WITH SCANT OLD RED BLOOD INTACT.NO CHANGE ON THAT WOUND PER PT.
--- NOTE | 2020-11-02 23:23 | NUR ---
LAB RESULTS BACK AFTER 2200 DRAW. H&H STILL LOW BUT IMPROVED FROM THIS MORNINGS DRAW AND AFTER TRANSFUSION. RESULTS WERE 7.6 AND 23.1. PER NURSING OFFICE MOVER, A HEMOGLOBIN LEVEL NOT BELOW 7, DOES NOT WARRANT A CALL TO THE PHYSICIAN AT THIS TIME. WILL NOTIFY PHARMACY OF THAT THE INR RESULTS ARE UP WELL. WILL AWAIT FURTHER ORDERS/DIRECTION. *I CONFIRMED THAT A DRAW WAS ORDERED FOR THE MORNING. CHECKED ON PT, SHE IS RESTING IN BED CALL WITH THE CALL LIGHT WITHIN REACH.
--- NOTE | 2020-11-03 05:49 | NUR ---
PT CURRENTLY SLEEPING. HAD COMPLAINTS OF PAIN THROUGHOUT THE NIGHT ON HER RIGHT FOOT. PT WAS MEDICATED AND OFFERED ELEVATION AND REPOSITIONING.PT ALSO OFFERED SNACKS AND FLUIDS, BUT ONLY TOOK SMALL SIPS OF WATER AND DENIED HUNGER. VSS, H&H LOW, WILL HAVE RE-DRAW THIS MORNING. HEPARIN DRIP STILL RUNNING, LEFT AND RIGHT IV'S IN ARM INTACT AND WNL. DRESSING ON RIGHT FOOT STILL INTACT AND CLEAN. WILL PASS ON REPORT AND CARE OF PT TO DAY SHIFT RN
[2020-11-03 06:10] LABS: BASOPHILS ABSOLUTE AUTO 0.07 K/mm3 (0.00-0.23); BASOPHILS PERCENT AUTO 1 % (0-2); EOSINOPHILS ABSOLUTE AUTO 0.31 K/mm3 (0.00-0.68); EOSINOPHILS PERCENT AUTO 3 % (0-6); Hematocrit 24.9 % (33.0-51.0); Hemoglobin 7.7 g/dL (11.5-16.0); IMMATURE GRAN ABSOLUTE AUTO 0.02 K/mm3 (0.00-0.10); IMMATURE GRAN PERCENT AUTO 0 % (0-1); LYMPHOCYTES ABSOLUTE AUTO 2.69 K/mm3 (0.84-5.20); LYMPHOCYTES PERCENT AUTO 30 % (21-46); MONOCYTES ABSOLUTE AUTO 0.92 K/mm3 (0.16-1.47); MONOCYTES PERCENT AUTO 10 % (4-13); Mean Corpuscular HGB 31.2 pg (26.0-34.0); Mean Corpuscular HGB Conc 30.9 g/dL (31.5-36.5); Mean Corpuscular Volume 101 fL (80-100); NEUTROPHILS PERCENT AUTO 56 % (41-73); Platelet Count 412 K/mm3 (150-400); RDW Coefficient Variation 14.3 % (11.7-14.2); RDW Standard Deviation 52.2 fL (35.1-46.3); Red Blood Cell Count 2.47 M/mm3 (3.80-5.20); White Blood Cell Count 9.11 K/mm3 (4.00-11.30)
[2020-11-03 06:41] LABS: Anion Gap 6 mmol/L (6-16); Blood Urea Nitrogen 6 mg/dL (8-24); Bun/Creatinine Ratio 9.4 (12.0-20.0); CO2, Blood 25 mmol/L (21-32); Calcium, Blood 8.1 mg/dL (8.5-10.1); Chloride, Blood 111 mmol/L (98-108); Creatinine, Blood 0.64 mg/dL (0.40-1.00); Glomerular Filtration Rate >60 (60-); Glucose, Blood 106 mg/dL (70-99); Potassium, Blood 3.9 mmol/L (3.5-5.5); Sodium, Blood 142 mmol/L (136-145)
--- NOTE | 2020-11-03 09:52 | NUR ---
UPON ASSESSMENT OF PT'S RAC IV, THIS RN MET RESISTANCE WHEN ATTEMPTING TO FLUSH WITH 10ML NS. UNABLE TO FLUSH ANY FLUID THROUGH RAC IV. DRESSING INTACT AND DRY, NO REDNESS NOTED. NATHAN IV INFUSING HEPARIN DRIP. DRESSING INTACT AND DRY, NO REDNESS NOTED.
--- NOTE | 2020-11-03 11:44 | NUR ---
THIS RN REQUESTED A WOUND CARE CONSULT FROM , VERBAL ORDER GIVEN. CASA FERREIRA FROM WOUND CARE ASSESSED RFOOT WOUND. WOUND WAS CLEANED WITH NS AND GAUZE. CASA FERRIERA LEFT WOUND TANNERY GUMMER UNTIL WOUND IS ASSESSED BY MD. WOUND APPEARS RED, DRIED BLOOD AND OOZING SLIGHTLY. AREA SURROUNING WOUND IS REDDENDED, SWOLLEN AND PAINFUL TO TOUCH. AREA AROUND WOUND ALSO APPEARS BLACK/PURPLE IN COLOR. NO PEDAL PULSES FOUND ON RFOOT. WILL AWAIT FURTHER ASSESSMENT FROM WOUND CONSULT OR MD.
--- NOTE | 2020-11-03 13:20 | NUR ---
SPOKE WITH CASA MICHAEL FROM WOUND CARE. VERBAL ORDER FROM DR. FINE RECEIVED FOR PODIATRY CONSULT. THIS RN LEFT MESSAGE FOR ONCALL DELIVERY ANALYST (DR. JAMES) TO SEE PATIENT. WILL AWAIT CONSULT
--- NOTE | 2020-11-03 14:12 | NUR ---
PT HAD SCHEDULED PTT LAB DRAWN. RESULT NOTIFIED TO PHARMACY BY THIS RN. NO CHANGE IN HEPARIN DOSE RECEIVED.
--- NOTE | 2020-11-03 18:10 | NUR ---
PT A&OX4. PT WORKED WITH OT TODAY, WHO RECOMMENDED PT NEEDING ASSISTANCE AT HOME. DR. JAMES CALLED FOR RFOOT WOUND CONSULT, RECEIVED CALL BACK FROM DR. JAMES OFFICE WHO SAID HE WOULD BE IN TO SEE PATIENT. PT HAS CALL LIGHT WITHIN REACH, BED LOCKED AND IN LOW POSITION. NO FURTHER COMPLAINTS. WILL CONTINUE TO MONITOR.
--- NOTE | 2020-11-03 20:20 | NUR ---
DR. JAMES IN CONSULT WITH PT AT 2011. PER SOFT DRY DRESSING WITH LIGHT WRAP. OK FOR DISCHARGE LONG SHE IS MEDICALLY STABLE. PT TO FOLLOW UP WITH DR. DELAROSA.
--- NOTE | 2020-11-04 05:43 | NUR ---
PT IS HOPING TO DISCHARGE TODAY.DR JAMES CAME BY FOR CONSULT AROUND 1900 LAST NIGHT. PER IF SHE IS MEDICALLY STABLE SHE CAN DISCHARGE TO HOME WITH HOSPITALIST ORDER. SHE IS TO FOLLOW UP WITH DR DELAROSA, AND PER PT SHE ALREADY HAD THAT APPOINTMENT SCHEDULED. DRESSING WAS CHANGED LAST NIGHT BY THIS RN PER ORDER, NON-ADHERENT PAD, LOOSE KERLIX, AND TAPE. POST OP ROCKER SHOE WAS GIVEN TO HER FOR D/C HOME FOOT AND TOE ARE VERY TENDER AND PAINFUL. PT WAS MEDICATED APPROPRIATELY THROUGH THE EVENING FOR PAIN 7/10, VSS, PT TOLERATING PO FLUIDS, BUT DENIED SNACKS. HEPARIN DRIP STILL INFUSING. WILL RE-CHECK MORNING LABS, AND GIVE REPORT TO ONCOMING DAY SHIFT RN
[2020-11-04 05:46] LABS: BASOPHILS ABSOLUTE AUTO 0.07 K/mm3 (0.00-0.23); BASOPHILS PERCENT AUTO 1 % (0-2); EOSINOPHILS ABSOLUTE AUTO 0.26 K/mm3 (0.00-0.68); EOSINOPHILS PERCENT AUTO 3 % (0-6); Hematocrit 24.3 % (33.0-51.0); Hemoglobin 7.6 g/dL (11.5-16.0); IMMATURE GRAN ABSOLUTE AUTO 0.02 K/mm3 (0.00-0.10); IMMATURE GRAN PERCENT AUTO 0 % (0-1); LYMPHOCYTES ABSOLUTE AUTO 2.81 K/mm3 (0.84-5.20); LYMPHOCYTES PERCENT AUTO 34 % (21-46); MONOCYTES ABSOLUTE AUTO 0.73 K/mm3 (0.16-1.47); MONOCYTES PERCENT AUTO 9 % (4-13); Mean Corpuscular HGB 31.7 pg (26.0-34.0); Mean Corpuscular HGB Conc 31.3 g/dL (31.5-36.5); Mean Corpuscular Volume 101 fL (80-100); Mean Platelet Volume 9.2 fL (9.1-12.4); NEUTROPHILS ABSOLUTE AUTO 4.32 K/mm3 (1.96-9.15); NEUTROPHILS PERCENT AUTO 53 % (41-73); Platelet Count 390 K/mm3 (150-400); RDW Coefficient Variation 13.9 % (11.7-14.2); RDW Standard Deviation 51.6 fL (35.1-46.3); White Blood Cell Count 8.21 K/mm3 (4.00-11.30)
[2020-11-04 06:12] LABS: Anion Gap 3 mmol/L (6-16); Blood Urea Nitrogen 6 mg/dL (8-24); Bun/Creatinine Ratio 8.8 (12.0-20.0); CO2, Blood 28 mmol/L (21-32); Calcium, Blood 9.1 mg/dL (8.5-10.1); Chloride, Blood 111 mmol/L (98-108); Creatinine, Blood 0.68 mg/dL (0.40-1.00); Glomerular Filtration Rate >60 (60-); Glucose, Blood 93 mg/dL (70-99); Potassium, Blood 3.9 mmol/L (3.5-5.5); Sodium, Blood 142 mmol/L (136-145)
[2020-11-04] MEDS ORDERED: ELIQUIS5 M2 PO (09:38)
[2020-11-04] MEDS ORDERED: DOCU100 PO (10:07)
--- NOTE | 2020-11-04 11:30 | NUR ---
PT DISCHARGED FROM [facility] AT 1130 VIA W/C. PT AOX3. DISCHARGE INSTRUCTIONS GIVEN AND PT STATED UNDERSTANDING. IV REMOVED WITH CATH INTACT. PREASSURE APPLIED FOR AT LEAST 2MINS, WRAPPED WITH GAUZE AND COBAN.
--- NOTE | 2020-11-04 15:00 | NUR ---
Pt. is doing fine discharged and gone home
--- NOTE | 2020-11-04 18:36 | NUR ---
LATE ENTRY: AT 1700 PT CALLED [facility]Y NOT FILLING HER ELIQUIS DUE TO INSURANCE NOT COVERING THE COST. RN CALLED [facility] AND SPOKE TO TERRIE, THE PHARMACIST, AND TERRIE STATED THAT THEY SENT PT A COUPLE DAYS WORTH OF ELIQUIS SAMPLES AND THAT THEY ENCOURAGED PT TO CALL PCP/CARDIAC DOCTOR IN AM TO HELP WITH A NEW/DIFFERENT MED THAT WILL BE COVERED BY INSURANCE. RN ALSO SPOKE WITH PT AND ENCOURAGED PT TO CALL HER DOCTOR IN AM TO HELP FIND A NEW/DIFFERENT MEDICATION THAT INSURANCE WILL COVER.
[2020-11-07 01:07] LABS: CK-BB 0 % (0); CK-MB 0 % (0-3); CK-MM 100 % (97-100); MACRO TYPE 1 0 % (Not Observed); MACRO TYPE 2 0 % (Not Observed)
[2020-11-19] MEDS ORDERED: FERSU300 PO (14:27)
[2020-11-19] MEDS ORDERED: CALCIUM ACETAT667 MG PO (14:27)
[2020-11-19] MEDS ORDERED: KETO.5OPSO (14:28)
[2020-11-19] MEDS ORDERED: Prinivil10 MG PO (14:28)
[2020-11-19] MEDS ORDERED: POTA10T PO (14:29)
[2020-11-19] MEDS ORDERED: PANT20 PO (14:29)
[2020-11-19] MEDS ORDERED: Ventolin/Prove6.7 GM INH (14:30)
[2020-11-19] MEDS ORDERED: ASCO500 PO (14:32)
== END 2020-11-04 11:30 | disposition home or self-care (01) | DRG 271 ==
LOC: MHTC 07:13 → PCU 20:18 → ORSCIP 20:18 → MHTC 20:18 → PCU 21:16 → ORSCIP 11-02 14:10
PROVIDERS: Family Medicine; Internal Medicine; Student in an Organized Health Care Education/Training Program; ADMIT Internal Medicine
PROC: 04CK3ZZ Extirpation of Matter from Right Femoral Artery, Percutaneous Approach (ICD-10-PCS; principal; 2020-10-31)
PROC: 047K3ZZ Dilation of Right Femoral Artery, Percutaneous Approach (ICD-10-PCS; 2020-10-31)
PROC: 04CM3ZZ Extirpation of Matter from Right Popliteal Artery, Percutaneous Approach (ICD-10-PCS; 2020-10-31)
PROC: 3E05317 Introduction of Other Thrombolytic into Peripheral Artery, Percutaneous Approach (ICD-10-PCS; 2020-10-31)
PROC: 30233N1 Transfusion of Nonautologous Red Blood Cells into Peripheral Vein, Percutaneous Approach (ICD-10-PCS; 2020-10-31)
DX: T82.868A Thrombosis due to vascular prosthetic devices, implants and grafts, initial encounter (principal); L03.115 Cellulitis of right lower limb; I70.261 Atherosclerosis of native arteries of extremities with gangrene, right leg; I74.3 Embolism and thrombosis of arteries of the lower extremities; I70.213 Atherosclerosis of native arteries of extremities with intermittent claudication, bilateral legs; F41.9 Anxiety disorder, unspecified; M19.90 Unspecified osteoarthritis, unspecified site; Z66 Do not resuscitate; G89.4 Chronic pain syndrome; J44.9 Chronic obstructive pulmonary disease, unspecified; E78.00 Pure hypercholesterolemia, unspecified; F43.10 Post-traumatic stress disorder, unspecified; H35.30 Unspecified macular degeneration; D63.8 Anemia in other chronic diseases classified elsewhere; E05.90 Thyrotoxicosis, unspecified without thyrotoxic crisis or storm; I10 Essential (primary) hypertension; E03.9 Hypothyroidism, unspecified; Z89.431 Acquired absence of right foot; Z87.891 Personal history of nicotine dependence; Z98.890 Other specified postprocedural states; Z88.8 Allergy status to other drugs, medicaments and biological substances; Z79.83 Long term (current) use of bisphosphonates; Z79.899 Other long term (current) drug therapy; Z79.01 Long term (current) use of anticoagulants; Z79.02 Long term (current) use of antithrombotics/antiplatelets; Y83.8 Other surgical procedures as the cause of abnormal reaction of the patient, or of later complication, without mention of misadventure at the time of the procedure; Z89.421 Acquired absence of other right toe(s)
CPT/HCPCS: 36415; 36430; 76937; 80048; 82550; 82552; 85014; 85018; 85025; 85347; 85730; 86850; 86900; 86901; 86923; 97165; 97530; 97535; 99152; 99153; A9270; C1725; C1751; C1757; C1769; C1874; C1887; C1894; J0690; J1644; J2060; J2250; J2405; J2997; J3010; J7030; J7040; J7050; P9016; Q9967

== ENCOUNTER 2020-12-05 08:25 | Inpatient (IN) | payer MEDICARE, OTHER ==
[~2020-12-05] VITALS: Ht 165.1 cm; Wt 55.3 kg
[~2020-12-05 08:25] MED LIST changes: +CALCIUM ACETAT667 MG PO; +DOCU100 PO; +ELIQUIS5 M2 PO; +FERSU300 PO; +KETO.5OPSO; +OXYC5 PO; +SYMBICORT 160-4.6 GM INH; -SYMBICORT 160-4.6 GM PO; +Ventolin/Prove6.7 GM INH
--- NOTE | 2020-12-06 01:02 | NUR ---
DR TAYLOR GAVE VERBAL, WANTS PLAVIX GIVEN NOW AND ELIQUIS GIVEN IN THE MORNING.
[2020-12-06 03:39] LABS: BASOPHILS ABSOLUTE AUTO 0.04 K/mm3 (0.00-0.23); BASOPHILS PERCENT AUTO 0 % (0-2); EOSINOPHILS PERCENT AUTO 0 % (0-6); Hematocrit 31.5 % (33.0-51.0); Hemoglobin 9.4 g/dL (11.5-16.0); IMMATURE GRAN ABSOLUTE AUTO 0.07 K/mm3 (0.00-0.10); IMMATURE GRAN PERCENT AUTO 1 % (0-1); LYMPHOCYTES ABSOLUTE AUTO 2.09 K/mm3 (0.84-5.20); LYMPHOCYTES PERCENT AUTO 15 % (21-46); MONOCYTES ABSOLUTE AUTO 0.59 K/mm3 (0.16-1.47); MONOCYTES PERCENT AUTO 4 % (4-13); Mean Corpuscular HGB 29.4 pg (26.0-34.0); Mean Corpuscular HGB Conc 29.8 g/dL (31.5-36.5); Mean Corpuscular Volume 98 fL (80-100); Mean Platelet Volume 9.5 fL (9.1-12.4); NEUTROPHILS ABSOLUTE AUTO 11.52 K/mm3 (1.96-9.15); NEUTROPHILS PERCENT AUTO 81 % (41-73); Platelet Count 453 K/mm3 (150-400); RDW Coefficient Variation 14.3 % (11.7-14.2); RDW Standard Deviation 51.8 fL (35.1-46.3); White Blood Cell Count 14.31 K/mm3 (4.00-11.30)
--- NOTE | 2020-12-06 06:35 | NUR ---
SHIFT SUMMARY PT IS ALERT AND ORIENTED, VERY AGITATED. PT SLEPT WELL T/O THE NIGHT. THIS MORNING SHE WOKE UP AND WAS UPSET BECAUSE WE "DID NOT WAKE HER SO THAT SHE COULD GO HOME," WE "DID NOT INFORM HER THAT IT WAS TUESDAY AND SHE MISSED A PHONE CALL," SHE IS IN PAIN AND SHE "TAKES PAIN MEDICATION MORE OFTEN AT HOME." PT'S RIGHT GROIN SITE IS CDI WITH SMALL HEMATOMA, RIGHT PEDAL ACCESS HAD SOME BLEEDING, DR TAYLOR LOOKED AT IT AND SAID IT LOOKED GOOD, RIGHT FOOT IS WARM AND HAS FAINT AND THREADY PULSES. RIGHT FOOT ULCER UPON ARRIVAL, PHOTO IN CHART, FOOT DISCOLORATION NOTED. LEFT AC IV SITE TOO PAINFUL FOR PT AND A SECOND SITE WAS ATTEMPTED, ( HAS FLUID ORDER) BUT PT REFUSED. CALL LIGHT IS WITHIN REACH.
--- NOTE | 2020-12-06 08:25 | NUR ---
CARE OF PT ASSUMED AT 0700. PT AWAKE IN BED IRRITABLE AND TEARFUL. PT C/O PAIN 10/10 TO RIGHT FOOT. PT HAS PT PER DOPPLER, ABSENT DP. RIGHT GROIN SITE AND R PT SITE BOTH STABLE. DR ENGLISH'S CALLED AND UPDATED. NS STARTED PER DR TAYLOR. MS GIVEN 2MG FOR R FOOT PAIN.
--- NOTE | 2020-12-06 09:19 | NUR ---
MS 2MG GIVEN FOR 10/10 R FOOT PAIN. PT C/O PAIN 9/10, RESTLESS, MOANS, IRRITABLE. PT'S LEG RESPOSITIONED. CHRONIC WOUND TO R FOOT NOTED, VERY DRY WITH MILD FOUL SMELL, NO DRAINAGE. PURPLE RED SKIN TO TOP OF FOOT, CAP REFILL IS LESS THAN 3SEC T/O. R FOOT COOL AND PALE IN OTHER AREAS INCLUDING TOES. PT REQUEST TO BE DISCHARGED HOME TODAY SOON POSSIBLE.
--- NOTE | 2020-12-06 11:00 | NUR ---
DR TAYLOR AT BEDSIDE. WOUND TO BE REDRESSED. NS STOPPED PER DR TAYLOR.
--- NOTE | 2020-12-06 11:57 | NUR ---
DR TAYLOR AT BEDSIDE. UNABLE TO OBTAIN PULSE VIA DOPPLER. PT TO STAY OVERNIGHT. HEPARIN GTT PER PHARMACY TO BE STARTED. HOSP CONSULTED FOR MEDICAL MANAGEMENT, DR PICKETT NOTIFIED. DILAUDID ORDERED FOR PAIN. DOPPLER STUDY TO BE COMPLETED IN AM AM TO CHECK FOR CLOTS. PER PHARMACY: HEPARIN GTT SHOULD BE STARTED TONIGHT NOT NOW PT HAD ELIQUIS THIS AM.
--- NOTE | 2020-12-06 12:15 | NUR ---
CLARIFICATION FROM DR TAYLOR. DOPPLER STUDY IS ORDERED STAT FOR NOW. TECH NOTIFIED. HEP GT TO START NOW, PHARMACY NOTIFIED. PT MEDICATED W DILAUDID 1MG FOR PAIN TO RIGHT FOOT. PT SITTING UP IN BED EATING LUNCH, DR TAYLOR AT BEDSIDE.
--- NOTE | 2020-12-06 12:46 | NUR ---
REPORT GIVEN TO MED MIGUEL A RN.
[2020-12-06 13:29] LABS: Bun/Creatinine Ratio 15.6 (12.0-20.0); Calcium, Blood 8.6 mg/dL (8.5-10.1); Creatinine, Blood 0.96 mg/dL (0.40-1.00); Potassium, Blood 5.2 mmol/L (3.5-5.5)
--- NOTE | 2020-12-06 13:52 | NUR ---
CLOT TO R LEG PER DOPPLER. PT WILL GO BACK TO MANAGER CAREER THIS AFTERNOON. HEPARIN GTT STARTED PER DR TAYLOR. 18UNITS/KG/HR PER PHARMACY. POWERGLIDE TO DANIELA. MALLORY CATH TO BE PLACED PER MANAGER CAREER/DR TAYLOR REQUEST. PT WILL STAY ICU STATUS.
--- NOTE | 2020-12-06 14:11 | NUR ---
HEPARIN GTT PLACED ON STANDBY BY PLATE MOLDER RN. PT TO PLATE MOLDER FRO PROCEDURE.
[2020-12-06 14:19] LABS: Source, Urine Catheter
[2020-12-06 14:23] LABS: Appearance, Urine Hazy (Clear); Bilirubin, Urine Neg (Neg); Blood, Urine 1+ (Neg); Color, Urine Yellow (P-Yellow); Glucose Qualitative, Urine Neg (Neg); Ketones, Urine Neg (Neg); Leukocyte Esterase, Urine Neg (Neg); Nitrite, Urine Neg (Neg); Protein, Urine Neg (Neg); Specific Gravity, Urine 1.015 (1.003-1.022); Urobilinogen, Urine NORM (Normal)
[2020-12-06 14:38] LABS: Bacteria Rare /hpf; Squamous Epithelial Cells Rare /hpf (Few); White Blood Cells, Urine 0-2 /hpf (0-5)
[2020-12-06 14:39] LABS: Mucus Light (0-Heavy)
--- NOTE | 2020-12-06 18:10 | NUR ---
PT BACK FROM [employer] AT 1755. PT AWAKE BUT DROSWY. VSS. SATS 94% ON RA. HEP TO RUN PERIPHERAL. PER DR TAYLOR ( HEP PER PHARMACY). RUNNING AT 18UNITS. NS AT 100CC/HR. PT HAS 2+ PULSE TO RIGHT DP. ABSENT PULSE TO RIGHT PT. FOOT MORE PINK THAN PRIOR AND SLIGHTLY WARMER. REMANUFACTURING TECHNICIAN HOLDING LIGHT PRESSURE OVER LEFT GROIN SITE IT WAS OOZING. MARY BETH DRSG CHANGED. SILVER DOLLAR SPOT OF BLOOD ON DRSG, AREA SOFT WITHOUT HEMATOMA. SITE CLOSED W ANGIOSEAL. AT 1810 BRIGHT RED BLEEDING/OOZ NOTED FROM R FOOT WOUND. PT MOANING, C/O PAIN 10/10 TO RIGHT FOOT
--- NOTE | 2020-12-06 19:08 | NUR ---
DR TAYLOR AT BEDSIDE, OKAY WITH OOZ TO FOOT WOUND. DLAUDID ORDERED Q1, 1MG GIVEN W GOOD RESULTS. LEFT GROIN REMAINS UNCHANGED AND STABLE, NO HEMATOMA. PULSES UNCHANGED. GROIN AND FOOT REVIEWED WITH ONCOMING RN.
--- NOTE | 2020-12-06 19:45 | NUR ---
SHIFT ASSESSMENT ASSUMED CARE OF PT @ 1900, REPORT RECEIVED FROM SID CORMIER. PT ALERT AND ORIENTED. LAYING SUPINE, FLAT IN BED, TO REMAIN IN THE POSITION FOR 2 HRS POST REVASCULARIZATION. MARY BETH DRESSING INTACT TO L FEMORAL SITE, CONFIRMED SITE c PREVIOUS NURSE. R FOOT WITH DRESSING IN PLACE, OOZING FROM WOUND, DRY FLOWS UNDER FOOT. 2+ DP PULSE, NO PT VIA DOPPLER ON R FOOT, CAP REFILL <3 SEC, SENSATION INTACT. HEPARIN GTT INFUSING VIA PG IN R ARM. VSS. WILL CONTINUE TO MONITOR CLOSELY.
[2020-12-06 20:30] LABS: Hematocrit 19.8 % (33.0-51.0); Hemoglobin 6.1 g/dL (11.5-16.0); Mean Platelet Volume 9.7 fL (9.1-12.4); Platelet Count 363 K/mm3 (150-400)
--- NOTE | 2020-12-06 22:05 | NUR ---
UPDATE PT UPRIGHT EATING DINNER. DURING FEMORAL SITE REASSESSMENT, BLOOD OOZING FROM L FEMORAL SITE. DIRECT PRESSURE TO SITE, BLEEDING STOPPED. NEW MARY BETH DRESSING PLACED. PT NOW LAYING FLAT AND SUPINE. WILL MONITOR SITE CLOSELY.
[2020-12-06 23:10] LABS: Hematocrit 19.2 % (33.0-51.0)
[2020-12-06 23:13] LABS: Hemoglobin 5.8 g/dL (11.5-16.0)
--- NOTE | 2020-12-06 23:58 | NUR ---
UPDATE PTS H & H DECREASING. PT IS ASYMPTOMATIC, VSS, NO SIGNS OF BLEEDING. 1 UNIT OF PRB'S TO BE TRANSFUSED.
--- NOTE | 2020-12-07 02:30 | NUR ---
UPDATE L FEMORAL ACCESS SITE STABLE c NO SIGNS OF BLEEDING. PT DENIES PAIN OR SOB. PT COMFORTABLE IN BED AT THIS TIME, SLEEPING WELL. VSS. R DP PULSE PALPABLE. UNABLE TO PALPATE OR DOPPLER R PT PULSES. R FOOT WOUND OOZING IS SLOWING. 1 UNIT OF BLOOD IS NEAR COMPLETION. WILL CHECK H&H c AM LABS.
[2020-12-07 04:42] LABS: Hematocrit 23.3 % (33.0-51.0); Hemoglobin 7.3 g/dL (11.5-16.0); Mean Platelet Volume 9.6 fL (9.1-12.4); Platelet Count 349 K/mm3 (150-400)
[2020-12-07 04:58] LABS: International Normalized Ratio 1.09; Prothrombin Time Results 11.7 Sec (9.7-11.5)
[2020-12-07 04:59] LABS: Anion Gap 4 mmol/L (6-16); Blood Urea Nitrogen 15 mg/dL (8-24); Bun/Creatinine Ratio 17.1 (12.0-20.0); CO2, Blood 24 mmol/L (21-32); Calcium, Blood 8.6 mg/dL (8.5-10.1); Chloride, Blood 109 mmol/L (98-108); Creatinine, Blood 0.88 mg/dL (0.40-1.00); Glomerular Filtration Rate >60 (60-); Glucose, Blood 101 mg/dL (70-99); Potassium, Blood 4.8 mmol/L (3.5-5.5); Sodium, Blood 137 mmol/L (136-145)
--- NOTE | 2020-12-07 06:13 | NUR ---
SHIFT SUMMARY PT ABLE TO REST MOST OF THE NIGHT. NO MORE SWELLING OR BLEEDING AROUND L FEMORAL ACCESS SITE, DRESSING DRY. R FOOT ULCER BLEEDING STOPPED, STRONG PALPABLE PULSE TO DORSALIS PEDIS. UNABLE TO DOPPLER PULSE TO POSTERIOR TIBIAL. CAP REFILL TO R TOES <3 SECONDS. REPEAT H&H IMPROVED WITH 1 UNIT, NOW 7.3. HEPARIN GTT CONTINUES @ 16U/KG/HR. VSS.
--- NOTE | 2020-12-07 08:52 | NUR ---
CARE OF PT ASSUMED AT 0700. PT AWAKE IN BED WATCHING TV. GROIN SITES AND RLE PULSES AND CIRC, CHECKED W NOCT RN. R AND LEFT GROIN SITE STABLE W/O HEMATOMA. PALP 2+ PULSE TO R DP. ABSENT RIGHT PT PULSE. R FOOT IS RED AND WARMER THAN YESTERDAY AM W GOOD CAP REFILL, <3SEC. PT C/O PAIN 09/20 THIS AM TO R FOOT, PT MUCH LESS RESTLESS W/O MOANING COMPARED TO YESTERDAY. DILAUDID 0.5MG IV ALOMG W OXY PO GIVEN FOR PAIN. SHAWNEE WOODY DC'Madhavi. R LEG REPOSITIONED. HEPARIN GTT PER PHARMACY AT 16UNITS.
--- NOTE | 2020-12-07 08:58 | NUR ---
DR TAYLOR CALLED TO CHECK ON PT AT 0845, FULL UPDATE GIVEN
[2020-12-07 09:48] LABS: Hematocrit 22.1 % (33.0-51.0); Hemoglobin 7.2 g/dL (11.5-16.0)
--- NOTE | 2020-12-07 14:05 | NUR ---
PHYSICAL THERAPY WORKING W PATIENT. R FOOT AND GROIN SITES REMAIN STABLE W/O CHANGE FROM PRIOR ASSESSMENT
--- NOTE | 2020-12-07 15:21 | NUR ---
PT OOB TO CHAIR W PT ASSIST. PT GIVEN FULL BEDBATH AND ASSISTED BACK TO BED. DRSG TO R FOOT CHANGED, WOUND CLEANED. PT C/O PAIN 12/21 W DRSG CHANGE. OXYCODONE AND DILAUDID 1MG GIVEN FOR SEVERE PAIN. R FOOT AND GROIN SITE ASSESSMENT REMAINS UNCHANGED.
--- NOTE | 2020-12-07 15:50 | NUR ---
HEPARIN GTT DECREASED TO 15UNITS PER PHARMACY. PT SITTING UP IN BED TALKING ON PHONE, FOOT PAIN IMPROVED 6/10
--- NOTE | 2020-12-07 18:27 | NUR ---
PT HAS NOT VOIDED SINCE MALLORY REMOVED THIS AM. PT DENIES URGE TO URINATE. BLADDER SCAN SHOWS 330CC. PT REQUEST TO WAIT A LITTLE LONGER BEFORE ATTEMPTING TO VOID. AT THIS TIME R AND LEFT GROIN SITES CHECKED. ~4CM HEMATOMA FELT OVER RIGHT GROIN. PRESSURE HELD X10MIN. HEMATOMA HAS SOFTENED, MUCH IMPROVED. CIRC CHECK AND PULSES UNCHANGED.
--- NOTE | 2020-12-07 20:40 | NUR ---
PATIENT REFUSED EYE DROPS, TRAZADONE AND DOCUSATE SODIUM THIS EVENING, EDUCATION GIVEN ON MEDICATIONS. PATIENT ALSO REFUSED TO TRY TO USE THE BEDSIDE COMMODE TO URINATE, STATED, " I DONT PEE AT NIGHT".
--- NOTE | 2020-12-07 23:57 | NUR ---
PATIENT TIP OF RIGHT GREAT TOE, BLANCHED WITH SLIGHT CAP REFILL MORE SLUGGISH THAN PREVIOUSLY ASSESSED AT 1999, DOPPLER WAS USED AND NOTED TIBIA/PEDAL PULSES, TIBIA PULSES WERE SLUGGLISH COMPARED TO BEFORE HAD A SECOND RN (REKHA ERAZO) ASSESS THE PATIENT. PATIENT ALSO COMPLAINING OF 10/10 PAIN AND FEELS LIKE SHE PULLED A MUSCLE IN HER LEG.
--- NOTE | 2020-12-08 00:15 | NUR ---
CALLED [facility] NEW ORDERS TORADOL 15MG X 1 IV PRN.
[2020-12-08 09:47] LABS: Hematocrit 19.4 % (33.0-51.0)
--- NOTE | 2020-12-08 11:00 | NUR ---
ASSUMED CARE THIS AM AFTER RECEIVING REPORT FROM GRACE PISANO SHIFT RN. PT CONTINUES A&O, ANSWERING QUESTIONS APPROPRIATELY. HEPARIN INFUSION CONTINUES PER ORDERS. PT'S BILATERAL FEMORAL SITES ASSESSED. L SITE WNL. R SITE NOTED TO HAVE HEMATOMA, TENSION FELT W/PALPATION, MILD BRUISING NOTED AROUND BANDAGE, SITE REMAINS UNCHANGED T/OUT MORNING. DR VANCE AND DR ARSHAD BOTH TO BEDSIDE AND BOTH NOTIFIED OF HEMATOMA TO R FEMORAL SITE. PT C/O PAIN TO RIGHT FOOT, DORSAL WOUND NOTED, PT DENYING DRESSING CHANGE AT THIS TIME D/T PAIN, PT BEING MEDICATED PER EMAR.
--- NOTE | 2020-12-08 15:43 | NUR ---
DISCHARGE: PT CONTINUES A&O, ANSWERING QUESTIONS APPROPRIATELY, CONVEYS TO DR ARSHAD AND THIS RN THAT SHE HAS HOME HEALTH AND HER NIECE (ADAM) COMING TO HELP CARE FOR HER IN HER HOME. NO CHANGES NOTED TO PT'S BILATERAL FEMORAL SITES. FIRST DOSE OF ELIQUIS PROVIDED PER ORDERS. WOUND CARE COMPLETED PRIOR TO DEPARTURE. PT PROVIDED WITH DC, HOME CARE AND FOLLOW UP INSTRUCTIONS, VERBALIZES UNDERSTANDING. PT ESCORTED FROM UNIT VIA WHEELCHAIR TO AWAITING RIDE.
== END 2020-12-08 15:50 | disposition home health service (06) | DRG 271 ==
LOC: MHTC 08:25 → PCU 14:37 → MHTC 12-06 19:04 → PCU 12-08 15:50
PROVIDERS: Hospitalist; Internal Medicine; ADMIT Internal Medicine
PROC: 04CR3ZZ Extirpation of Matter from Right Posterior Tibial Artery, Percutaneous Approach (ICD-10-PCS; principal; 2020-12-05)
PROC: 047M3ZZ Dilation of Right Popliteal Artery, Percutaneous Approach (ICD-10-PCS; 2020-12-05)
PROC: 047T3ZZ Dilation of Right Peroneal Artery, Percutaneous Approach (ICD-10-PCS; 2020-12-05)
PROC: 047R3ZZ Dilation of Right Posterior Tibial Artery, Percutaneous Approach (ICD-10-PCS; 2020-12-05)
PROC: 04CK3ZZ Extirpation of Matter from Right Femoral Artery, Percutaneous Approach (ICD-10-PCS; 2020-12-05)
PROC: 04CM3ZZ Extirpation of Matter from Right Popliteal Artery, Percutaneous Approach (ICD-10-PCS; 2020-12-05)
PROC: 047K3D1 Dilation of Right Femoral Artery with Intraluminal Device, using Drug-Coated Balloon, Percutaneous Approach (ICD-10-PCS; 2020-12-05)
PROC: 30233N1 Transfusion of Nonautologous Red Blood Cells into Peripheral Vein, Percutaneous Approach (ICD-10-PCS; 2020-12-05)
PROC: 04CK3ZZ Extirpation of Matter from Right Femoral Artery, Percutaneous Approach (ICD-10-PCS; 2020-12-06)
PROC: 04CP3ZZ Extirpation of Matter from Right Anterior Tibial Artery, Percutaneous Approach (ICD-10-PCS; 2020-12-06)
PROC: 04CM3ZZ Extirpation of Matter from Right Popliteal Artery, Percutaneous Approach (ICD-10-PCS; 2020-12-06)
PROC: 047P3ZZ Dilation of Right Anterior Tibial Artery, Percutaneous Approach (ICD-10-PCS; 2020-12-06)
PROC: 047K3ZZ Dilation of Right Femoral Artery, Percutaneous Approach (ICD-10-PCS; 2020-12-06)
PROC: 3E05317 Introduction of Other Thrombolytic into Peripheral Artery, Percutaneous Approach (ICD-10-PCS; 2020-12-06)
DX: T82.856A Stenosis of peripheral vascular stent, initial encounter (principal); I70.261 Atherosclerosis of native arteries of extremities with gangrene, right leg; I74.3 Embolism and thrombosis of arteries of the lower extremities; F41.9 Anxiety disorder, unspecified; M19.90 Unspecified osteoarthritis, unspecified site; G89.4 Chronic pain syndrome; J44.9 Chronic obstructive pulmonary disease, unspecified; E78.00 Pure hypercholesterolemia, unspecified; I10 Essential (primary) hypertension; E05.90 Thyrotoxicosis, unspecified without thyrotoxic crisis or storm; E78.5 Hyperlipidemia, unspecified; L97.519 Non-pressure chronic ulcer of other part of right foot with unspecified severity; M10.9 Gout, unspecified; H35.30 Unspecified macular degeneration; F43.10 Post-traumatic stress disorder, unspecified; Z89.422 Acquired absence of other left toe(s); Z87.891 Personal history of nicotine dependence; Z88.8 Allergy status to other drugs, medicaments and biological substances; Z79.01 Long term (current) use of anticoagulants; Z79.899 Other long term (current) drug therapy; Z79.02 Long term (current) use of antithrombotics/antiplatelets; Y83.8 Other surgical procedures as the cause of abnormal reaction of the patient, or of later complication, without mention of misadventure at the time of the procedure
CPT/HCPCS: 36415; 36430; 51702; 76937; 80048; 81001; 85014; 85018; 85025; 85049; 85347; 85610; 85730; 86850; 86900; 86901; 86923; 93926; 97110-CQ; 97116; 97162; 97166; 97530; 97530-CQ; 99152; 99153; A9270; C1714; C1725; C1751; C1753; C1757; C1760; C1769; C1773; C1874; C1885; C1887; C1894; C2623; C9113; J0690; J1170; J1644; J1885; J2060; J2250; J2270; J2405; J2997; J3010; J7030; J7040; J7050; P9016; Q9967

== ENCOUNTER 2020-12-16 08:48 | Day surgery (SDC) | payer MEDICARE, OTHER ==
[2020-12-16] MEDS ORDERED: OXYC10TA19 PO (16:58)
== END 2020-12-16 23:31 | disposition home or self-care (01) ==
LOC: WOUND 08:48
DX: L97.518 Non-pressure chronic ulcer of other part of right foot with other specified severity (principal); I73.9 Peripheral vascular disease, unspecified; I10 Essential (primary) hypertension; J44.9 Chronic obstructive pulmonary disease, unspecified; E03.9 Hypothyroidism, unspecified; Z87.891 Personal history of nicotine dependence; Z88.8 Allergy status to other drugs, medicaments and biological substances
CPT/HCPCS: G0463

== ENCOUNTER 2020-12-16 11:41 | Inpatient (IN) | payer MEDICARE, OTHER ==
[~2020-12-16] VITALS: Ht 165.1 cm; Wt 59.2 kg
[2020-12-16 12:38] LABS: BASOPHILS ABSOLUTE AUTO 0.07 K/mm3 (0.00-0.23); BASOPHILS PERCENT AUTO 1 % (0-2); EOSINOPHILS ABSOLUTE AUTO 0.07 K/mm3 (0.00-0.68); EOSINOPHILS PERCENT AUTO 1 % (0-6); Hematocrit 22.9 % (33.0-51.0); Hemoglobin 7.1 g/dL (11.5-16.0); IMMATURE GRAN ABSOLUTE AUTO 0.24 K/mm3 (0.00-0.10); IMMATURE GRAN PERCENT AUTO 2 % (0-1); LYMPHOCYTES PERCENT AUTO 25 % (21-46); MONOCYTES ABSOLUTE AUTO 1.02 K/mm3 (0.16-1.47); MONOCYTES PERCENT AUTO 7 % (4-13); Mean Corpuscular HGB 28.6 pg (26.0-34.0); Mean Corpuscular Volume 92 fL (80-100); Mean Platelet Volume 9.1 fL (9.1-12.4); NEUTROPHILS ABSOLUTE AUTO 10.03 K/mm3 (1.96-9.15); NEUTROPHILS PERCENT AUTO 66 % (41-73); NRBC ABSOLUTE 0.03 K/mm3 (0.00-0.02); NRBC Auto 0.2 /100 WBC (0.0-0.2); Platelet Count 731 K/mm3 (150-400); RDW Coefficient Variation 15.5 % (11.7-14.2); RDW Standard Deviation 52.6 fL (35.1-46.3); Red Blood Cell Count 2.48 M/mm3 (3.80-5.20); White Blood Cell Count 15.23 K/mm3 (4.00-11.30)
[2020-12-16 13:00] LABS: Alanine Aminotransfer (ALT/SGP 37 U/L (12-78); Albumin, Blood 2.5 g/dL (3.4-5.0); Albumin/Globulin Ratio 0.6 (0.8-1.8); Alk Phos 111 U/L (50-136); Anion Gap 7 mmol/L (6-16); Aspartate Aminotrans (AST/SGOT 26 U/L (12-37); Bilirubin, Total 0.6 mg/dL (0.1-1.0); Blood Urea Nitrogen 8 mg/dL (8-24); CO2, Blood 26 mmol/L (21-32); Calcium, Blood 9.7 mg/dL (8.5-10.1); Chloride, Blood 106 mmol/L (98-108); Creatinine, Blood 0.73 mg/dL (0.40-1.00); Globulin, Blood 4.3 g/dL (2.2-4.0); Glomerular Filtration Rate >60 (60-); Glucose, Blood 83 mg/dL (70-99); Potassium, Blood 3.9 mmol/L (3.5-5.5); Sodium, Blood 139 mmol/L (136-145); Total Protein, Blood 6.8 g/dL (6.4-8.2)
[2020-12-16] MEDS ORDERED: OXYC10TA19 PO (16:58)
[2020-12-16 17:20] LABS: International Normalized Ratio 1.25; Prothrombin Time Results 12.9 Sec (9.7-11.5)
[2020-12-16 19:33] LABS: SARS-Cov-2 (COVID-19) PCR, MMC NEGATIVE (NEGATIVE)
[2020-12-17 02:10] LABS: BASOPHILS ABSOLUTE AUTO 0.05 K/mm3 (0.00-0.23); BASOPHILS PERCENT AUTO 0 % (0-2); EOSINOPHILS ABSOLUTE AUTO 0.23 K/mm3 (0.00-0.68); EOSINOPHILS PERCENT AUTO 2 % (0-6); Hematocrit 23.9 % (33.0-51.0); Hemoglobin 7.3 g/dL (11.5-16.0); IMMATURE GRAN ABSOLUTE AUTO 0.25 K/mm3 (0.00-0.10); IMMATURE GRAN PERCENT AUTO 2 % (0-1); LYMPHOCYTES ABSOLUTE AUTO 4.77 K/mm3 (0.84-5.20); LYMPHOCYTES PERCENT AUTO 33 % (21-46); MONOCYTES ABSOLUTE AUTO 1.37 K/mm3 (0.16-1.47); MONOCYTES PERCENT AUTO 10 % (4-13); Mean Corpuscular HGB 28.2 pg (26.0-34.0); Mean Corpuscular HGB Conc 30.5 g/dL (31.5-36.5); Mean Corpuscular Volume 92 fL (80-100); Mean Platelet Volume 10.1 fL (9.1-12.4); NEUTROPHILS ABSOLUTE AUTO 7.66 K/mm3 (1.96-9.15); NEUTROPHILS PERCENT AUTO 54 % (41-73); NRBC ABSOLUTE 0.07 K/mm3 (0.00-0.02); NRBC Auto 0.5 /100 WBC (0.0-0.2); Platelet Count 526 K/mm3 (150-400); RDW Coefficient Variation 18.3 % (11.7-14.2); RDW Standard Deviation 60.4 fL (35.1-46.3); Red Blood Cell Count 2.59 M/mm3 (3.80-5.20); White Blood Cell Count 14.33 K/mm3 (4.00-11.30)
[2020-12-17 02:14] LABS: Alanine Aminotransfer (ALT/SGP 29 U/L (12-78); Albumin, Blood 2.1 g/dL (3.4-5.0); Albumin/Globulin Ratio 0.6 (0.8-1.8); Alk Phos 93 U/L (50-136); Anion Gap 7 mmol/L (6-16); Aspartate Aminotrans (AST/SGOT 23 U/L (12-37); Blood Urea Nitrogen 10 mg/dL (8-24); Bun/Creatinine Ratio 12.1 (12.0-20.0); CO2, Blood 24 mmol/L (21-32); Calcium, Blood 8.9 mg/dL (8.5-10.1); Chloride, Blood 109 mmol/L (98-108); Creatinine, Blood 0.82 mg/dL (0.40-1.00); Globulin, Blood 3.6 g/dL (2.2-4.0); Glomerular Filtration Rate >60 (60-); Glucose, Blood 85 mg/dL (70-99); Potassium, Blood 3.7 mmol/L (3.5-5.5); Sodium, Blood 140 mmol/L (136-145); Total Protein, Blood 5.7 g/dL (6.4-8.2)
--- NOTE | 2020-12-17 02:33 | NUR ---
WHEN ASKED ABOUT PT'S PAIN LEVEL, PT REPORTS "LEAVE ME ALONE."
--- NOTE | 2020-12-17 05:01 | NUR ---
OXYGEN REMOVED - SATS 98-100% ON RA.
--- NOTE | 2020-12-17 05:42 | NUR ---
PT WAS SLEEPING SOUNDLY - RESPIRATIONS EVEN AND UNLABORED - SATS 86-89% ON RA - PLACED 2L O2 ON VIA NC - SATS 100%.
--- NOTE | 2020-12-17 07:23 | NUR ---
SHIFT SUMMARY PT IS ALERT AND ORIENTED X4. IRRITABLE AND C/O 10/10 PAIN IN RIGHT FOOT. PT CONSTANTLY REQUESTING PAIN MEDICATION. PICTURE OF WOUND TAKEN AND PLACED INTO CHART. ON EITHER RA OR 2L NC THROUGHOUT EVENING, O2 SATS MAINTAINING OVER 95% AWAKE MOST OF NIGHT. 1 UNIT OF BLOOD INFUSED. HGB CHANGED FROM 7.1 TO 7.3 AND HCT FROM 22.9 TO 23.9. PROVIDER NOTIFIED AND REPEAT H+H to be drawn at 0800. HEPARIN GTT INFUSING IN LEFT A/C @ 20/U/KG/HR 22ML/HR. PT LEFT IN BED RESTING WITH CALL ALARM AT SIDE. WILL CONTINUE TO MONITOR UNTIL REPORT GIVEN
[2020-12-17 07:55] LABS: Hematocrit 23.7 % (33.0-51.0); Hemoglobin 7.4 g/dL (11.5-16.0)
--- NOTE | 2020-12-17 11:22 | NUR ---
PHYSICIAN NOTIFIED PT REPORTING CP AT 3-10. WORSE WITH DEEP INSPIRATION, AND COUGHING AND STRAINING FOR A BM. EKG DONE AND PHYSICIAN NOTIFIED. NO EKG CHANGES AT THIS TIME.
[2020-12-17 16:49] LABS: Hematocrit 21.8 % (33.0-51.0); Hemoglobin 6.8 g/dL (11.5-16.0)
--- NOTE | 2020-12-17 17:20 | NUR ---
PHYSICIAN NOTIFIED PT'S HGB AT 6.8. ORDERS FOR 1 UNIT PRBC'S
--- NOTE | 2020-12-17 17:52 | NUR ---
SHIFT SUMMARY PT ALERT AND ORIENTED X 4. HR STABLE. BP STABLE. OXYGEN SATURATION MAINTAINED ABOVE 92% ON RA. PT ABLE TO TURN SELF IN BED. DRESSING CHANGED ON R FOOT THIS AM BEFORE SHIFT CHANGE. DRESSING C/D/I. PT REPORTS SEVERE PAIN T/O SHIFT. MEDICATED PER EMAR. PT SBA TO COMMODE. PLAN TO BE NPO AT MIDNIGHT FOR PROCEDURE TOMORROW AM. WILL CONT TO MONITOR UNTIL REPORT GIVEN TO NIGHTSHIFT RN
[2020-12-17 21:50] LABS: Hematocrit 25.2 % (33.0-51.0); Hemoglobin 8.2 g/dL (11.5-16.0)
[2020-12-18 03:50] LABS: BASOPHILS ABSOLUTE AUTO 0.05 K/mm3 (0.00-0.23); BASOPHILS PERCENT AUTO 1 % (0-2); EOSINOPHILS ABSOLUTE AUTO 0.34 K/mm3 (0.00-0.68); EOSINOPHILS PERCENT AUTO 3 % (0-6); Hematocrit 24.2 % (33.0-51.0); Hemoglobin 7.5 g/dL (11.5-16.0); IMMATURE GRAN ABSOLUTE AUTO 0.13 K/mm3 (0.00-0.10); IMMATURE GRAN PERCENT AUTO 1 % (0-1); LYMPHOCYTES ABSOLUTE AUTO 3.53 K/mm3 (0.84-5.20); LYMPHOCYTES PERCENT AUTO 34 % (21-46); MONOCYTES ABSOLUTE AUTO 0.53 K/mm3 (0.16-1.47); MONOCYTES PERCENT AUTO 5 % (4-13); Mean Corpuscular HGB 27.6 pg (26.0-34.0); Mean Corpuscular Volume 89 fL (80-100); Mean Platelet Volume 8.7 fL (9.1-12.4); NEUTROPHILS PERCENT AUTO 55 % (41-73); NRBC ABSOLUTE 0.02 K/mm3 (0.00-0.02); NRBC Auto 0.2 /100 WBC (0.0-0.2); Platelet Count 610 K/mm3 (150-400); RDW Coefficient Variation 18.3 % (11.7-14.2); RDW Standard Deviation 58.5 fL (35.1-46.3); Red Blood Cell Count 2.72 M/mm3 (3.80-5.20); White Blood Cell Count 10.28 K/mm3 (4.00-11.30)
[2020-12-18 04:45] LABS: Albumin, Blood 1.8 g/dL (3.4-5.0); Anion Gap 8 mmol/L (6-16); Blood Urea Nitrogen 7 mg/dL (8-24); Bun/Creatinine Ratio 8.5 (12.0-20.0); CO2, Blood 23 mmol/L (21-32); Calcium, Blood 8.1 mg/dL (8.5-10.1); Chloride, Blood 112 mmol/L (98-108); Creatinine, Blood 0.82 mg/dL (0.40-1.00); Ferritin, Serum 151 ng/mL (8-252); Glomerular Filtration Rate >60 (60-); Glucose, Blood 98 mg/dL (70-99); Iron Serum 13 ug/dL (50-170); Percent Saturation 5.7 % (15.0-50.0); Phosphorus, Blood 2.9 mg/dL (2.5-4.9); Potassium, Blood 3.3 mmol/L (3.5-5.5); Sodium, Blood 143 mmol/L (136-145); Total Iron Binding Capacity 228 ug/dL (250-450)
--- NOTE | 2020-12-18 06:29 | NUR ---
ASSUMED CARE OF PATIENT AT 1900. O2 OVER 90% ON RA. NSR IN 70'S. R FOOT GANGRENE - COVERED WITH BANDAGES THAT WERE REPLACED TODAY. BL GROIN SITES FROM REVASC LAST ADMISSION THAT AREN'T RED, BUT ARE HARD. PATIENT CAN BE QUITE ANXIOUS AT TIMES. PATIENT REPORTS PAIN OF 8/10 AND AFTER DILAUDID IT ONLY COMES DOWN TO 7/10. PATIENT WAS GIVEN 2 PRBC IN THE LAST 48HRS, HGB AFTER TODAY'S PRBC WENT FROM 6.8 (BEFORE), 8.2, 7.5. POTASSIUM WAS 3.3 - KLORCON ORDERED. WILL REPORT TO ONCOMING DAYSHICADENCE RN.
[2020-12-18 10:17] LABS: Hematocrit 24.7 % (33.0-51.0); Hemoglobin 7.9 g/dL (11.5-16.0)
--- NOTE | 2020-12-18 11:30 | NUR ---
PT GONE TO ANIMAL IMPERSONATOR @ THIS TIME.
--- NOTE | 2020-12-18 13:15 | NUR ---
TRANSFER TO ICU PT MADE ICU STATUS WHILE IN HEART CENTER. PT STILL IN HEART CENTER @ THIS TIME & TO BE TRANSFERRED TO ICU FROM THERE. REPORT CALLED TO SPORTS TEACHER ACCEPTING CARE OF PT. PRIOR TO PRECISION DEVICES INSPECTOR/TESTER, PT A&O X4. VSS. SPO2 > 92% ON RA. MONITOR SHOWING SR, HR 70's. PT C/O OF 9/10 R FOOT PAIN, MEDICATED W/ PRN PO OXYCODONE X1 & PRN IV DILAUDID X1 PER EMAR W/ SOME RELIEF. HEPARIN GTT INFUSING UNTIL PT TAKEN TO PRECISION DEVICES INSPECTOR/TESTER BY PRECISION DEVICES INSPECTOR/TESTER TEAM @ APPROX 1130.
--- NOTE | 2020-12-18 13:46 | NUR ---
1317 TELEPHONE REPORT RECIEVED FROM CASA BARDALES AND SOUND ENGINEER AUDIO CONTROL. 1321 PATIENT ARRIVED TO UNIT AND CARE ASSUMED. PATIENT PLACED ON NC @ 2LPM PATIENT RESPONDS TO VERBAL STIMULI. A/OX4; DENIES PAIN SHEATH NOTED TO LEFT GROIN; GROIN SOFT W/O HEMATOMA.
[2020-12-18 14:23] LABS: Hematocrit 25.6 % (33.0-51.0); Hemoglobin 7.9 g/dL (11.5-16.0)
--- NOTE | 2020-12-18 18:02 | NUR ---
Summary Pt. easily arousable to verbal stimuli; A/0x4 Heparin drip initiated at 500 units/hr per orders. tPA infusing via Left femoral sheath; left groin soft nontender, no hematoma. Right foot wrapped with vaseline gauze/coban. L distal pulses present/palpable. Bilat lower ext. warm to touch Fentanyl IVP and PO Roxicodone given with for c/o of R limb/foot pain; effective outcome. 1715 Patient returned to labor relations manager
--- NOTE | 2020-12-18 19:30 | NUR ---
PT RECEIVED FROM , LEFT GROIN WITH TRANSPARENT DRESSING, C/D/I. GOOD PULSES IN THE LEFT LOWER EXTREMITY, RIGHT LEG WITH FAINT PULSES, DRESSING OVER RIGHT GREAT TOE, PURPLE, TENDER, IMPROVED COLORING. PT DROWSY, COOPERATIVE, GIGGLY.
[2020-12-18 22:06] LABS: Hematocrit 25.1 % (33.0-51.0); Hemoglobin 7.9 g/dL (11.5-16.0)
--- NOTE | 2020-12-19 04:51 | NUR ---
WAS IN ROOM, TALKING WITH FAMILY, DRAWING AM LABS, PT'S HEART RATE BEGAN TO HOVER IN THE 40'S. CONTINUED WITH PATIENT, PT QUIT HAVING ADDITIONAL BREATHS, LISTENED TO CHEST, NO HEART TONES HEARD. CHRO, NORMA LISTENED WELL. NO HEART TONES HEARD. PRONOUNCED AT 0429. MOM AND STEP DAD AT THE BEDSIDE. PT CLEANED UP AND FAMILY BROUGHT BACK IN.
[2020-12-19 05:38] LABS: BASOPHILS ABSOLUTE AUTO 0.04 K/mm3 (0.00-0.23); BASOPHILS PERCENT AUTO 0 % (0-2); EOSINOPHILS ABSOLUTE AUTO 0.09 K/mm3 (0.00-0.68); EOSINOPHILS PERCENT AUTO 1 % (0-6); Hematocrit 23.8 % (33.0-51.0); Hemoglobin 7.4 g/dL (11.5-16.0); IMMATURE GRAN ABSOLUTE AUTO 0.08 K/mm3 (0.00-0.10); IMMATURE GRAN PERCENT AUTO 1 % (0-1); LYMPHOCYTES ABSOLUTE AUTO 3.51 K/mm3 (0.84-5.20); LYMPHOCYTES PERCENT AUTO 27 % (21-46); MONOCYTES ABSOLUTE AUTO 0.72 K/mm3 (0.16-1.47); MONOCYTES PERCENT AUTO 6 % (4-13); Mean Corpuscular HGB 28.7 pg (26.0-34.0); Mean Corpuscular HGB Conc 31.1 g/dL (31.5-36.5); Mean Corpuscular Volume 92 fL (80-100); Mean Platelet Volume 8.8 fL (9.1-12.4); NEUTROPHILS PERCENT AUTO 66 % (41-73); Platelet Count 497 K/mm3 (150-400); RDW Coefficient Variation 18.1 % (11.7-14.2); RDW Standard Deviation 60.3 fL (35.1-46.3); Red Blood Cell Count 2.58 M/mm3 (3.80-5.20); White Blood Cell Count 13.04 K/mm3 (4.00-11.30)
[2020-12-19 05:56] LABS: Albumin, Blood 1.8 g/dL (3.4-5.0); Anion Gap 6 mmol/L (6-16); Blood Urea Nitrogen 6 mg/dL (8-24); Bun/Creatinine Ratio 8.2 (12.0-20.0); CO2, Blood 22 mmol/L (21-32); Calcium, Blood 7.9 mg/dL (8.5-10.1); Chloride, Blood 116 mmol/L (98-108); Creatinine, Blood 0.74 mg/dL (0.40-1.00); Glomerular Filtration Rate >60 (60-); Glucose, Blood 72 mg/dL (70-99); Phosphorus, Blood 2.6 mg/dL (2.5-4.9); Potassium, Blood 3.6 mmol/L (3.5-5.5); Sodium, Blood 144 mmol/L (136-145)
--- NOTE | 2020-12-19 06:07 | NUR ---
LOY HAS HAD A GOOD NIGHT, SHE CONTINUES TO REST WELL, THE RIGHT FOOT IS UNCHANGED, SHE HAS BEEN MEDICATED ONCE WITH DILAUDID AND ONCE WITH FENTANYL. SHE HAS BEEN ABLE TO REPOSITION HERSELF THE LAST FEW HOURS AND HAS DONE WELL. HER HEPARIN GTT WAS JUST NOW ADJUSTED PER HER AM PTT TO 20U/KG/HR. THE LEFT GROIN SITE CONTINUES WITH TRANSPARENT DRESSING, C/D/I.
[2020-12-20 04:26] LABS: BASOPHILS ABSOLUTE AUTO 0.05 K/mm3 (0.00-0.23); BASOPHILS PERCENT AUTO 0 % (0-2); EOSINOPHILS ABSOLUTE AUTO 0.46 K/mm3 (0.00-0.68); EOSINOPHILS PERCENT AUTO 4 % (0-6); Hematocrit 22.3 % (33.0-51.0); Hemoglobin 6.9 g/dL (11.5-16.0); IMMATURE GRAN ABSOLUTE AUTO 0.05 K/mm3 (0.00-0.10); IMMATURE GRAN PERCENT AUTO 0 % (0-1); LYMPHOCYTES ABSOLUTE AUTO 3.25 K/mm3 (0.84-5.20); LYMPHOCYTES PERCENT AUTO 29 % (21-46); MONOCYTES ABSOLUTE AUTO 0.61 K/mm3 (0.16-1.47); MONOCYTES PERCENT AUTO 5 % (4-13); Mean Corpuscular HGB 28.4 pg (26.0-34.0); Mean Corpuscular HGB Conc 30.9 g/dL (31.5-36.5); Mean Corpuscular Volume 92 fL (80-100); Mean Platelet Volume 8.9 fL (9.1-12.4); NEUTROPHILS ABSOLUTE AUTO 6.99 K/mm3 (1.96-9.15); NEUTROPHILS PERCENT AUTO 61 % (41-73); Platelet Count 441 K/mm3 (150-400); RDW Coefficient Variation 17.9 % (11.7-14.2); RDW Standard Deviation 59.7 fL (35.1-46.3); Red Blood Cell Count 2.43 M/mm3 (3.80-5.20); White Blood Cell Count 11.41 K/mm3 (4.00-11.30)
[2020-12-20 04:45] LABS: Albumin, Blood 1.7 g/dL (3.4-5.0); Anion Gap 6 mmol/L (6-16); Blood Urea Nitrogen 9 mg/dL (8-24); Bun/Creatinine Ratio 10.2 (12.0-20.0); CO2, Blood 23 mmol/L (21-32); Calcium, Blood 7.9 mg/dL (8.5-10.1); Chloride, Blood 115 mmol/L (98-108); Creatinine, Blood 0.89 mg/dL (0.40-1.00); Glomerular Filtration Rate >60 (60-); Glucose, Blood 100 mg/dL (70-99); Phosphorus, Blood 1.9 mg/dL (2.5-4.9); Potassium, Blood 3.4 mmol/L (3.5-5.5); Sodium, Blood 144 mmol/L (136-145)
--- NOTE | 2020-12-20 08:14 | NUR ---
SHIFT SUMMARY PATIENT IS RESTING IN BED COMFORTABLY. BED IS IN LOW POSITION. CALL LIGHT IS IN REACH. THE PATIENT WAS A TRANSFER TO THE FLOOR FROM ICU 16. PATIENT IS ALERT AND ORIENTED X3/4 AND PLESANT. SHE IS ON ROOM AIR AND SATURATING ABOVE 90%. SHE HAS A WOUND ON THE RLE AND DRESSING IS C/D/I. SHE COMPLAINED OF PAIN AFTER THE TRANSFER FROM THE BED. PRN PAIN MEDICATION WAS GIVEN. THE PATIENT ALSO HAD A HGB OF 6.9 MD WAS INFORMED AND ORDERS WERE PUT IN. UNABLE TO GIVE PT BLOOD DAY SHIFT RN WAS INFORMED. VITALS WERE STABLE UPON ARRIVAL. PATIENT STATES SHE WAS COMFORTABLY. WHEN RN CHECKED IN ON HER SHE WAS SLEEPING AT AROUND 0630. PULES IN THE RLE WERE HARD TO PALPATE. DOPPLER WAS USED TO FIND THE PULSE AND WAS MARKED. WILL CONTINUE TO MONITOR. REPORT GIVENT TO DAYSHIFT RN.
--- NOTE | 2020-12-20 11:36 | NUR ---
UPDATE PT A&O X4. VSS. SPO2 > 92% ON RA. MONITOR SHOWING SB-SR, HR 50's-60's. PT C/O 8-12/21 R FOOT PAIN, MEDICATING W/ PRN IV DILAUDID & PRN PO OXYCODONE PER EMAR/PT REQUEST W/ PT REPORT OF "IT'S WORKING." R FOOT WOUND W/ VASELINE DRESSING IN PLACE, WRAPPED W/ GAUZE BANDAGE ROLL. WOUND PHOTO IN CHART. R PEDAL PULSE PRESENT USING DOPPLER. ADDITIONAL POWER GLIDE PLACED THIS SHIFT BY WAITER/WAITRESS FIRST CLASS FOR BLOOD TRANSFUSION. HEPARIN GTT INFUSING PER ORDERS. BLOOD TRANSFUSING PER ORDERS. IV ABX INFUSING PER ORDERS.
[2020-12-20 17:46] LABS: Hematocrit 24.8 % (33.0-51.0); Hemoglobin 7.7 g/dL (11.5-16.0)
[2020-12-20 18:06] LABS: Vancomycin, Trough 15.3 ug/mL (5.0-10.0)
--- NOTE | 2020-12-20 18:10 | NUR ---
SHIFT SUMMARY PT CONTINUES TO BE A&O X4. VSS. SPO2 > 92% ON RA. MONITOR SHOWING SB-SR, HR 50's-70's. PT RECIEVED 1 UNIT pRBC's THIS SHIFT. PT W/ CONTINUED R FOOT PAIN, MEDICATING W/ MINIMAL IMPROVEMENT T/O SHIFT, SEE EMAR. PT IN BED T/O DAY, REPORTING INABILITY TO GET OOB. PT REPOSITIONING SELF IN BED. HEPARIN GTT INFUSING PER ORDERS. IV ABX INFUSING PER ORDERS.
[2020-12-21 04:19] LABS: BASOPHILS ABSOLUTE AUTO 0.05 K/mm3 (0.00-0.23); BASOPHILS PERCENT AUTO 1 % (0-2); EOSINOPHILS ABSOLUTE AUTO 0.41 K/mm3 (0.00-0.68); EOSINOPHILS PERCENT AUTO 4 % (0-6); Hematocrit 26.6 % (33.0-51.0); Hemoglobin 8.4 g/dL (11.5-16.0); IMMATURE GRAN ABSOLUTE AUTO 0.04 K/mm3 (0.00-0.10); IMMATURE GRAN PERCENT AUTO 0 % (0-1); LYMPHOCYTES ABSOLUTE AUTO 3.13 K/mm3 (0.84-5.20); LYMPHOCYTES PERCENT AUTO 33 % (21-46); MONOCYTES ABSOLUTE AUTO 0.56 K/mm3 (0.16-1.47); MONOCYTES PERCENT AUTO 6 % (4-13); Mean Corpuscular HGB Conc 31.6 g/dL (31.5-36.5); Mean Corpuscular Volume 92 fL (80-100); Mean Platelet Volume 9.2 fL (9.1-12.4); NEUTROPHILS ABSOLUTE AUTO 5.41 K/mm3 (1.96-9.15); NEUTROPHILS PERCENT AUTO 56 % (41-73); Platelet Count 466 K/mm3 (150-400); RDW Coefficient Variation 16.9 % (11.7-14.2); RDW Standard Deviation 56.8 fL (35.1-46.3)
--- NOTE | 2020-12-21 07:30 | NUR ---
SHIFT SUMMARY PATIENT IS RESTING IN BED COMFORTABLY. BED IS IN LOW POSITION. CALL LIGHT IS IN REACH. PATIENT COMPLAINED OF PAIN DURING THE NIGHT PAIN MEDICATION WAS GIVEN SEE EMAR. VITALS WERE STABLE DURING THE NIGHT. NO ACUTE EVENTS DURING THE NIGHT. THE DRESSING ON HER LEGS WERE CHANGED THIS AM. THE PATIENT IS STILL ON HEPARIN AT 18.5 KG/ML/HR AT 20.4 ML/HR. NO CHANGES WERE MADE THIS MORNING. WILL CONTINUE TO MONITOR. REPORT GIVEN TO DAY SHIFT RN.
[2020-12-21 08:39] LABS: Source, Urine Catheter
[2020-12-21 08:44] LABS: Appearance, Urine Clear (Clear); Bilirubin, Urine Neg (Neg); Blood, Urine Neg (Neg); Color, Urine Yellow (P-Yellow); Glucose Qualitative, Urine Neg (Neg); Ketones, Urine Neg (Neg); Leukocyte Esterase, Urine Neg (Neg); Nitrite, Urine Neg (Neg); Protein, Urine 1+ (Neg); Specific Gravity, Urine 1.015 (1.003-1.022); Urobilinogen, Urine NORM (Normal)
--- NOTE | 2020-12-21 11:48 | NUR ---
PT ARRIVED TO THE FLOOR AT APPROX 1110. PT A/OX4 AND APPROPRIATELY ANSWERING QUESTIONS. PT REPORTS BEING PAINFUL BUT WAS JUST TREATED PER EMAR FOR PAIN. BELONGINGS BROUGHT WITH PT. WILL CONTINUE TO MONITOR PT.
[2020-12-21 14:31] LABS: Phosphorus, Blood 2.3 mg/dL (2.5-4.9); Potassium, Blood 3.7 mmol/L (3.5-5.5)
--- NOTE | 2020-12-21 16:17 | NUR ---
SHIFT SUMMARY ARRIVED TO SURGICAL UNIT AT APPROX 1110. A/OX4 AND V/S/S. SINCE PT HAS HAD PAIN MANAGED WITH PO PAIN MEDICATIONS AND R FOOT IS ELEVATED ON PILLOW TO PATIENTS COMFORT. DRESSINGS ON R FOOT WERE CHANGED THIS AM BY ANOTHER RN. PT WORKED WITH PHYSICAL THERAPY TODAY AND WAS ABLE TO GET TO THE CHAIR BUT MOVED BACK TO THE BED SHORTLY AFTER BECAUSE OF DISCOMFORT IN R FOOT. BOWEL MOVEMENT TODAY, MALLORY IN PLACE DRAINING YELLOW URINE. PT RESTING COMFORTABLY WITH CALL LIGHT IN REACH. PLAN FOR NPO AT MIDNIGHT FOR POSSIBLE PROCEDURE TOMORROW. WILL REPORT TO ONCOMING RN.
[2020-12-22 05:47] LABS: BASOPHILS ABSOLUTE AUTO 0.06 K/mm3 (0.00-0.23); BASOPHILS PERCENT AUTO 1 % (0-2); EOSINOPHILS ABSOLUTE AUTO 0.23 K/mm3 (0.00-0.68); EOSINOPHILS PERCENT AUTO 3 % (0-6); Hematocrit 25.5 % (33.0-51.0); IMMATURE GRAN ABSOLUTE AUTO 0.03 K/mm3 (0.00-0.10); IMMATURE GRAN PERCENT AUTO 0 % (0-1); LYMPHOCYTES PERCENT AUTO 28 % (21-46); MONOCYTES ABSOLUTE AUTO 0.49 K/mm3 (0.16-1.47); MONOCYTES PERCENT AUTO 5 % (4-13); Mean Corpuscular HGB 28.4 pg (26.0-34.0); Mean Corpuscular HGB Conc 31.4 g/dL (31.5-36.5); Mean Corpuscular Volume 90 fL (80-100); Mean Platelet Volume 9.3 fL (9.1-12.4); NEUTROPHILS ABSOLUTE AUTO 5.93 K/mm3 (1.96-9.15); NEUTROPHILS PERCENT AUTO 64 % (41-73); Platelet Count 486 K/mm3 (150-400); RDW Coefficient Variation 16.4 % (11.7-14.2); RDW Standard Deviation 53.6 fL (35.1-46.3); Red Blood Cell Count 2.82 M/mm3 (3.80-5.20); White Blood Cell Count 9.34 K/mm3 (4.00-11.30)
[2020-12-22 06:02] LABS: Albumin, Blood 1.6 g/dL (3.4-5.0); Anion Gap 5 mmol/L (6-16); Blood Urea Nitrogen 4 mg/dL (8-24); Bun/Creatinine Ratio 5.9 (12.0-20.0); CO2, Blood 22 mmol/L (21-32); Calcium, Blood 7.7 mg/dL (8.5-10.1); Chloride, Blood 118 mmol/L (98-108); Creatinine, Blood 0.68 mg/dL (0.40-1.00); Glomerular Filtration Rate >60 (60-); Glucose, Blood 89 mg/dL (70-99); Phosphorus, Blood 1.9 mg/dL (2.5-4.9); Potassium, Blood 3.4 mmol/L (3.5-5.5); Sodium, Blood 145 mmol/L (136-145)
--- NOTE | 2020-12-22 06:30 | NUR ---
SHIFT SUMMARY: LOY IS A&OX4. VSS, NO ACUTE EVENTS OVERNIGHT. SHE DID BECOME TEARFUL WHEN DISCUSSING THE POSSIBILITY OF SURGERY ON HER FOOT, PT REASSURED THAT NO PROCEDURE WILL BE PERFORMED WITHOUT HER CONSENT. POWERGLIDE X 2 PATENT. SHE WAS MADE NPO AT MIDNIGHT, TOLERATED PO INTAKE WELL PRIOR. SHE IS LYING IN BED WITH THE CALL LIGHT IN REACH. WILL REPORT TO DAY SHIFT RN.
[2020-12-22 17:57] LABS: Vancomycin, Trough 14.4 ug/mL (5.0-10.0)
--- NOTE | 2020-12-23 04:39 | NUR ---
SHIFT SUMMARY PT IS A&O X4 AND ADMITTED FOR NECROSIS AND GANGRENE OF THE R FOOT. PT HAS HAD SOME PAIN AND WAS MEDICATED PER EMAR. PT IS A 1 PERSON ASSIST TO THE BEDSIDE COMMODE AND HAS A MALLORY IN PLACE THAT IS PATENT AND DRAINING CLEAR, LIGHT YELLOW URINE. PT IS TOLERATING FLUIDS W/O REPORT OF N/V. R FOOT IS WRAPPED IN GAUZE AND IS C/D/I. PT APPEARED TO HAVE RESTED MOST OF THE NIGHT. PT CALLS APPROPRIATELY. PT IS CURRENTLY RESTING IN BED WITH CALL LIGHT WITHIN REACH.
[2020-12-23 05:41] LABS: BASOPHILS ABSOLUTE AUTO 0.09 K/mm3 (0.00-0.23); BASOPHILS PERCENT AUTO 1 % (0-2); EOSINOPHILS ABSOLUTE AUTO 0.22 K/mm3 (0.00-0.68); EOSINOPHILS PERCENT AUTO 2 % (0-6); Hemoglobin 8.6 g/dL (11.5-16.0); IMMATURE GRAN ABSOLUTE AUTO 0.05 K/mm3 (0.00-0.10); IMMATURE GRAN PERCENT AUTO 1 % (0-1); LYMPHOCYTES ABSOLUTE AUTO 2.96 K/mm3 (0.84-5.20); LYMPHOCYTES PERCENT AUTO 32 % (21-46); MONOCYTES ABSOLUTE AUTO 0.54 K/mm3 (0.16-1.47); MONOCYTES PERCENT AUTO 6 % (4-13); Mean Corpuscular HGB Conc 31.9 g/dL (31.5-36.5); Mean Corpuscular Volume 91 fL (80-100); Mean Platelet Volume 9.3 fL (9.1-12.4); NEUTROPHILS ABSOLUTE AUTO 5.39 K/mm3 (1.96-9.15); NEUTROPHILS PERCENT AUTO 58 % (41-73); Platelet Count 516 K/mm3 (150-400); RDW Coefficient Variation 16.3 % (11.7-14.2); RDW Standard Deviation 53.8 fL (35.1-46.3); Red Blood Cell Count 2.97 M/mm3 (3.80-5.20); White Blood Cell Count 9.25 K/mm3 (4.00-11.30)
[2020-12-23 06:05] LABS: Albumin, Blood 1.8 g/dL (3.4-5.0); Anion Gap 6 mmol/L (6-16); Blood Urea Nitrogen 3 mg/dL (8-24); Bun/Creatinine Ratio 4.5 (12.0-20.0); CO2, Blood 22 mmol/L (21-32); Calcium, Blood 7.8 mg/dL (8.5-10.1); Chloride, Blood 117 mmol/L (98-108); Creatinine, Blood 0.67 mg/dL (0.40-1.00); Glomerular Filtration Rate >60 (60-); Glucose, Blood 78 mg/dL (70-99); Phosphorus, Blood 2.2 mg/dL (2.5-4.9); Potassium, Blood 3.4 mmol/L (3.5-5.5); Sodium, Blood 145 mmol/L (136-145)
--- NOTE | 2020-12-23 06:49 | NUR ---
HEPARIN STOPPED AT 0630 PER ORDER AND PT NPO SINCE MIDNIGHT.
--- NOTE | 2020-12-23 08:34 | NUR ---
A&OX4, PT ANXIOUS ABOUT SURGERY TODAY, DISCUSSED SURGERY AND CARE AFTER, PT ENCOURAGED TO TALK TO HER FAMILY, HAS CONCERNS ABOUT DISCHARGE PLANS AND RETURNING TO HER HOME, SS CONSULT PLACED.
--- NOTE | 2020-12-23 12:05 | NUR ---
PT TAKEN TO DAY SURGERY.
--- NOTE | 2020-12-23 12:29 | NUR ---
Patient confirms NPO status and agrees with scheduled surgery. History, Chart, Medications and Allergies reviewed before start of procedure. Patient states that her pain to her right food is improving since last analgesic and that it is a tolerable level of pain. Rates 11/21.
--- NOTE | 2020-12-23 13:37 | NUR ---
CALF PAS TO LLE ONLY.
--- NOTE | 2020-12-23 14:37 | NUR ---
12/23/20 1437 Mago Pelletier TOURNIQUET OPERATED AND MONITORED BY ANESTHESIA. CASA MOSQUEDA
--- NOTE | 2020-12-23 17:59 | NUR ---
ARRIVED FROM PACU VIA BED, S/P R BKA, PT IS DROWSY BUT AWAKENS EASILY, CURRENTLY ON 3L O2 VIA NC, RESPIRATIONS REGULAR, SATS 96%, HRR, RLE W/ GAUZE AND STUMP SOCK, C/D/I, MALLORY CATH W/ C/Y/U, NO OTHER CHANGES THIS SHIFT.
[2020-12-23 19:58] LABS: Phosphorus, Blood 2.6 mg/dL (2.5-4.9)
--- NOTE | 2020-12-24 06:30 | NUR ---
SHIFT SUMMARY POD1 R BKA, A/O X4, VSS THOUGH PT HAS BEEN HYPERTENSIVE TONIGHT, DENIES N/T TO RLE, PAIN MANAGED PER EMAR, PT WAS VERY GROGGY FIRST HALF OF THE SHIFT R/T ANESTHESIA BUT WAS ABLE TO WAKE AND ANSWER QUESTIONS APPROPRIATELY, SMALL SIPS OF WATER GIVEN WITH MEDS OTHERWISE KEPT NPO ORDERED, FLUID INFUSING AT TKO. NO ACUTE EVENTS THIS SHIFT. CALL LIGHT IN REACH, WILL CTM AND REPORT TO ONCOMING DAY RN.
[2020-12-24 06:34] LABS: BASOPHILS ABSOLUTE AUTO 0.04 K/mm3 (0.00-0.23); BASOPHILS PERCENT AUTO 0 % (0-2); EOSINOPHILS PERCENT AUTO 0 % (0-6); Hematocrit 29.3 % (33.0-51.0); Hemoglobin 9.2 g/dL (11.5-16.0); IMMATURE GRAN ABSOLUTE AUTO 0.07 K/mm3 (0.00-0.10); IMMATURE GRAN PERCENT AUTO 1 % (0-1); LYMPHOCYTES ABSOLUTE AUTO 3.88 K/mm3 (0.84-5.20); LYMPHOCYTES PERCENT AUTO 26 % (21-46); MONOCYTES ABSOLUTE AUTO 0.88 K/mm3 (0.16-1.47); MONOCYTES PERCENT AUTO 6 % (4-13); Mean Corpuscular HGB 28.5 pg (26.0-34.0); Mean Corpuscular HGB Conc 31.4 g/dL (31.5-36.5); Mean Corpuscular Volume 91 fL (80-100); Mean Platelet Volume 9.2 fL (9.1-12.4); NEUTROPHILS ABSOLUTE AUTO 9.81 K/mm3 (1.96-9.15); NEUTROPHILS PERCENT AUTO 67 % (41-73); Platelet Count 606 K/mm3 (150-400); RDW Coefficient Variation 16.1 % (11.7-14.2); RDW Standard Deviation 53.3 fL (35.1-46.3); Red Blood Cell Count 3.23 M/mm3 (3.80-5.20); White Blood Cell Count 14.68 K/mm3 (4.00-11.30)
[2020-12-24 07:05] LABS: Anion Gap 6 mmol/L (6-16); Blood Urea Nitrogen 5 mg/dL (8-24); Bun/Creatinine Ratio 7.8 (12.0-20.0); CO2, Blood 24 mmol/L (21-32); Calcium, Blood 7.8 mg/dL (8.5-10.1); Chloride, Blood 112 mmol/L (98-108); Creatinine, Blood 0.64 mg/dL (0.40-1.00); Glomerular Filtration Rate >60 (60-); Glucose, Blood 87 mg/dL (70-99); Phosphorus, Blood 2.2 mg/dL (2.5-4.9); Potassium, Blood 3.6 mmol/L (3.5-5.5); Sodium, Blood 142 mmol/L (136-145); Vancomycin, Trough 18.2 ug/mL (5.0-10.0)
--- NOTE | 2020-12-24 16:07 | NUR ---
PATIENT CURRENTLY LYING IN BED WITH EYES CLOSED WITH NO SIGNS OR SYMPTOMS ACUTE DISTRESS NOTED. CALL LIGHT AND WATER IN EASY REACH. REPORT RECIEVED FROM CASA DING AT 1515 AND ASSUMED CARE OF PATIENT. MALLORY CATH PATENT DRAINING CLEAR YELLOW URINE. DRESSING WAS CHANGED BY DR JOHNSTON TODAY TO RIGHT BKA, DRESSING IS CLEAN, DRY AND INTACT AT THIS TIME. WILL MONITOR.
--- NOTE | 2020-12-25 05:44 | NUR ---
SHIFT SUMMARY: LOY IS A&OX4. VSS, NO ACUTE EVENTS OVERNIGHT. SHE REPORTS ADEQUATE PAIN CONTROL WITH THE TORADOL AND OXYCODONE. SHE IS TOLERATING PO INTAKE WELL, REPORTS THAT THE DIARRHEA HAS SLOWED, AND THE MALLORY IS PATENT. STUMP SOCK C/D&I. SHE IS LYING IN BED WITH THE CALL LIGHT IN REACH. WILL REPORT TO DAY SHIFT RN.
[2020-12-25 06:06] LABS: BASOPHILS ABSOLUTE AUTO 0.06 K/mm3 (0.00-0.23); BASOPHILS PERCENT AUTO 1 % (0-2); EOSINOPHILS ABSOLUTE AUTO 0.04 K/mm3 (0.00-0.68); EOSINOPHILS PERCENT AUTO 1 % (0-6); Hematocrit 25.6 % (33.0-51.0); Hemoglobin 7.9 g/dL (11.5-16.0); IMMATURE GRAN ABSOLUTE AUTO 0.03 K/mm3 (0.00-0.10); IMMATURE GRAN PERCENT AUTO 0 % (0-1); LYMPHOCYTES ABSOLUTE AUTO 2.57 K/mm3 (0.84-5.20); LYMPHOCYTES PERCENT AUTO 30 % (21-46); MONOCYTES ABSOLUTE AUTO 0.65 K/mm3 (0.16-1.47); MONOCYTES PERCENT AUTO 8 % (4-13); Mean Corpuscular HGB 28.2 pg (26.0-34.0); Mean Corpuscular HGB Conc 30.9 g/dL (31.5-36.5); Mean Corpuscular Volume 91 fL (80-100); Mean Platelet Volume 9.4 fL (9.1-12.4); NEUTROPHILS ABSOLUTE AUTO 5.26 K/mm3 (1.96-9.15); NEUTROPHILS PERCENT AUTO 61 % (41-73); Platelet Count 527 K/mm3 (150-400); RDW Coefficient Variation 16.2 % (11.7-14.2); RDW Standard Deviation 54.3 fL (35.1-46.3); White Blood Cell Count 8.61 K/mm3 (4.00-11.30)
[2020-12-25 06:26] LABS: Albumin, Blood 1.8 g/dL (3.4-5.0); Anion Gap 5 mmol/L (6-16); Blood Urea Nitrogen 8 mg/dL (8-24); Bun/Creatinine Ratio 13.5 (12.0-20.0); CO2, Blood 24 mmol/L (21-32); Calcium, Blood 7.9 mg/dL (8.5-10.1); Chloride, Blood 112 mmol/L (98-108); Creatinine, Blood 0.59 mg/dL (0.40-1.00); Glomerular Filtration Rate >60 (60-); Glucose, Blood 84 mg/dL (70-99); Phosphorus, Blood 1.6 mg/dL (2.5-4.9); Potassium, Blood 3.4 mmol/L (3.5-5.5); Sodium, Blood 141 mmol/L (136-145)
[2020-12-25 11:39] LABS: SARS-Cov-2 (COVID-19) PCR, MMC NEGATIVE (NEGATIVE)
[2020-12-25] MEDS ORDERED: KETO10 PO (11:48)
[2020-12-25] MEDS ORDERED: Prinivil10 MG PO (11:48)
--- NOTE | 2020-12-25 12:59 | NUR ---
Spiritual care visit conducted. Patient is sitting on a chair and alert. We talk about the trauma and grief of the loss of a limb, solid family friend support system (She is planning to live with her niece post rehab) and her Buddhist belief system. Patient tells me about the recent victory she has had with quiting smoking and about how well PT is going. Patient admits to haivng a rough time emotionally with all the changes she has had. I normalize her experience, reinforce helpful attitudes and practices and provide therapeutic listening, anxiety containment, grief support and prayer. Patient responds well and shows signs of reduced stress. I will continue to remain available to patient and family.
--- NOTE | 2020-12-25 14:00 | NUR ---
REPORT CALLED TO EMILIA FUNES [facility].
--- NOTE | 2020-12-25 16:30 | NUR ---
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 REPORT CALLED PREVIOUSLY TO . 2 POWERGLIDES REMOVED.
== END 2020-12-25 16:56 | disposition home or self-care (01) | DRG 271 ==
LOC: ER 11:41 → PCU 16:47 → SURS 16:47 → PCU 17:31 → ICUW 12-18 13:26 → PCU 12-20 05:04 → SURS 12-21 11:12
PROVIDERS: Family Medicine; Hospitalist; Pharmacist; Physician Assistant; Radiology Diagnostic Radiology; Student in an Organized Health Care Education/Training Program; ADMIT Internal Medicine
PROC: 04CL3ZZ Extirpation of Matter from Left Femoral Artery, Percutaneous Approach (ICD-10-PCS; principal; 2020-12-18)
PROC: 04CN3ZZ Extirpation of Matter from Left Popliteal Artery, Percutaneous Approach (ICD-10-PCS; 2020-12-18)
PROC: 047L3ZZ Dilation of Left Femoral Artery, Percutaneous Approach (ICD-10-PCS; 2020-12-18)
PROC: 047N3ZZ Dilation of Left Popliteal Artery, Percutaneous Approach (ICD-10-PCS; 2020-12-18)
PROC: 30233N1 Transfusion of Nonautologous Red Blood Cells into Peripheral Vein, Percutaneous Approach (ICD-10-PCS; 2020-12-22)
PROC: 0Y6H0Z1 Detachment at Right Lower Leg, High, Open Approach (ICD-10-PCS; 2020-12-23)
DX: I70.261 Atherosclerosis of native arteries of extremities with gangrene, right leg (principal); M86.161 Other acute osteomyelitis, right tibia and fibula; L03.115 Cellulitis of right lower limb; L02.611 Cutaneous abscess of right foot; K52.1 Toxic gastroenteritis and colitis; Z20.822 Contact with and (suspected) exposure to COVID-19; D72.829 Elevated white blood cell count, unspecified; E83.39 Other disorders of phosphorus metabolism; E87.6 Hypokalemia; T36.8X5A Adverse effect of other systemic antibiotics, initial encounter; D63.8 Anemia in other chronic diseases classified elsewhere; J44.9 Chronic obstructive pulmonary disease, unspecified; I10 Essential (primary) hypertension; E78.5 Hyperlipidemia, unspecified; E03.9 Hypothyroidism, unspecified; F41.9 Anxiety disorder, unspecified; M19.90 Unspecified osteoarthritis, unspecified site; G89.4 Chronic pain syndrome; Z28.21 Immunization not carried out because of patient refusal; M81.0 Age-related osteoporosis without current pathological fracture; R73.03 Prediabetes; F43.10 Post-traumatic stress disorder, unspecified; E05.90 Thyrotoxicosis, unspecified without thyrotoxic crisis or storm; Z88.8 Allergy status to other drugs, medicaments and biological substances; Z98.890 Other specified postprocedural states; Z89.421 Acquired absence of other right toe(s); Z87.891 Personal history of nicotine dependence
CPT/HCPCS: 36415; 36430; 37184; 37185; 37211; 37224; 37228; 37232; 73630; 73701; 75716; 75774; 76937; 80053; 80069; 80202; 82728; 83540; 83550; 83605; 83690; 84100; 84132; 84145; 85014; 85018; 85025; 85347; 85384; 85610; 85651; 85730; 86140; 86850; 86900; 86901; 86923; 88307; 93922; 93926; 94640; 94664; 94760; 96365; 96366; 96375; 97110; 97162; 97164; 97166; 97530; 97535; 99152; 99153; 99285-25; A9270; C1725; C1751; C1757; C1760; C1769; C1887; C1894; C9113; J0360; J1170; J1644; J1650; J1885; J2060; J2250; J2543; J2997; J3010; J3370; J7030; J7040; J7050; J7060; P9016; Q9967; U0004

== ENCOUNTER 2021-09-16 16:35 | Emergency (ER) | payer MEDICARE, OTHER ==
[~2021-09-16] VITALS: Ht 165.1 cm; Wt 51.3 kg
[~2021-09-16 16:35] MED LIST changes: +KETO10 PO; +OXYC10TA19 PO
[2021-09-16 17:48] LABS: Hematocrit 39.4 % (33.0-51.0); Mean Corpuscular HGB 31.4 pg (26.0-34.0); Mean Corpuscular Volume 95 fL (80-100); Mean Platelet Volume 10.4 fL (9.1-12.4); Platelet Count 352 K/mm3 (150-400); RDW Coefficient Variation 13.2 % (11.7-14.2); RDW Standard Deviation 46.5 fL (35.1-46.3); Red Blood Cell Count 4.14 M/mm3 (3.80-5.20); White Blood Cell Count 21.44 K/mm3 (4.00-11.30)
[2021-09-16 18:06] LABS: Albumin/Globulin Ratio 0.8 (0.8-1.8); Bilirubin, Total 0.3 mg/dL (0.1-1.0); Bun/Creatinine Ratio 15.4 (12.0-20.0); Calcium, Blood 9.3 mg/dL (8.5-10.1); Creatinine, Blood 0.71 mg/dL (0.40-1.00); Globulin, Blood 3.6 g/dL (2.2-4.0); Potassium, Blood 3.3 mmol/L (3.5-5.5); Total Protein, Blood 6.6 g/dL (6.4-8.2)
[2021-09-16 18:33] LABS: Influenza A, PCR NEGATIVE (NEGATIVE); Influenza B, PCR NEGATIVE (NEGATIVE); Resp Syncytial Virus, PCR NEGATIVE (NEGATIVE); SARS-Cov-2 (COVID-19) PCR, MMC NEGATIVE (NEGATIVE)
[2021-09-16 19:58] LABS: BAND PERCENT MAN 8 % (0-8); BASOPHILS PERCENT MAN 0 % (0-2); EOSINOPHILS PERCENT MAN 0 % (0-6); LYMPHOCYTES % ATYPICAL MANUAL 2 % (0-0); LYMPHOCYTES ABSOLUTE MAN 6.43 K/mm3 (0.84-5.20); LYMPHOCYTES PERCENT MAN 28 % (21-46); MONOCYTES PERCENT MAN 7 % (4-13); SEG NEUTROPHILS PERCENT MAN 55 % (41-73); TOTAL CELLS COUNTED 100
[2021-09-16] MEDS ORDERED: ONDA4ODT MM (20:22)
[2021-09-16] MEDS ORDERED: AMOCLA875 PO ×2 (20:34→20:54)
== END 2021-09-16 20:55 | disposition home or self-care (01) ==
LOC: ER 16:35
PROVIDERS: Student in an Organized Health Care Education/Training Program
DX: K52.9 Noninfective gastroenteritis and colitis, unspecified (principal); D72.829 Elevated white blood cell count, unspecified; J44.9 Chronic obstructive pulmonary disease, unspecified; I10 Essential (primary) hypertension; R73.03 Prediabetes; F17.210 Nicotine dependence, cigarettes, uncomplicated; Z20.822 Contact with and (suspected) exposure to COVID-19; Z88.5 Allergy status to narcotic agent; Z88.8 Allergy status to other drugs, medicaments and biological substances; Z79.899 Other long term (current) drug therapy
CPT/HCPCS: 0241U; 74177; 80053; 83690; 85025; A9270; J1885; J3480; J7030; Q9967

== ENCOUNTER → 2021-09-24 | Outpatient (CLI) | payer MEDICARE, OTHER ==
[~2021-09-24] MED LIST changes: +AMOCLA875 PO; +ONDA4ODT MM
[2021-09-24 13:57] LABS: Adenovirus F 40/41 Not Detected (NOT DETECT); Astrovirus Not Detected (NOT DETECT); Campylobacter Sp Not Detected (NOT DETECT); Cryptosporidium Not Detected (NOT DETECT); Cyclospora Cayetanensis Not Detected (NOT DETECT); E. Coli O157 Not Detected (NOT DETECT); Entamoeba Histolytica Not Detected (NOT DETECT); Enteroaggregative E. coli-EAEC Not Detected (NOT DETECT); Enteropathogenic E. coli-EPEC Not Detected (NOT DETECT); Enterotoxigenic E. coli-ETEC Not Detected (NOT DETECT); Giardia Lamblia Not Detected (NOT DETECT); Norovirus GI/GII Not Detected (NOT DETECT); Plesiomonas Shigelloides Not Detected (NOT DETECT); Rotavirus A Not Detected (NOT DETECT); Salmonella Sp Not Detected (NOT DETECT); Sapovirus Not Detected (NOT DETECT); Shiga Toxin-prod E. coli-STEC Not Detected (NOT DETECT); Shigella/Enteroin E. coli-EIEC Not Detected (NOT DETECT); Vibrio Cholerae Not Detected (NOT DETECT); Vibrio Sp Not Detected (NOT DETECT); Yersinia Enterocolitica Detected (NOT DETECT)
== END | disposition home or self-care (01) ==
LOC: LAB 10:45 → LAB SHORT 10:45
PROVIDERS: Student in an Organized Health Care Education/Training Program
DX: K52.9 Noninfective gastroenteritis and colitis, unspecified (principal)
CPT/HCPCS: 87324; 87507

== ENCOUNTER → 2022-04-12 | Outpatient (CLI) | payer MEDICARE, OTHER ==
[2022-04-12 13:07] LABS: C DIFFICILE DNA Negative (Negative)
== END | disposition home or self-care (01) ==
LOC: LAB 08:48 → LAB SHORT 08:48
PROVIDERS: Internal Medicine
DX: R19.7 Diarrhea, unspecified (principal)
CPT/HCPCS: 87493

== ENCOUNTER 2022-07-15 07:53 | Day surgery (SDC) | payer MEDICARE, OTHER ==
[2022-07-15] VITALS (15 sets, daily range): BP systolic 94–181; BP diastolic 67–104
[~2022-07-15] VITALS: Ht 165.1 cm; Wt 50.5 kg
--- NOTE | 2022-07-15 08:37 | NUR ---
INTO SDS VIA W/C. History, Chart, Medications and Allergies reviewed before start of procedure.Patient confirms NPO status and agrees with scheduled surgery. Patient states colon prep results clear.Lungs clear T/O to Auscultation. Patient States Post-Procedure ride home has been arranged.
--- NOTE | 2022-07-15 09:14 | NUR ---
07/15/22 0914 Karina Mckee HISTORY, CHART, MEDICATIONS AND ALLERGIES REVIEWED BEFORE START OF PROCEDURE. PATIENT CONFIRMS NPO STATUS AND AGREES WITH SCHEDULED PROCEDURE. 3-LEAD EKG REVIEWED WITH PHYSICIAN PRIOR TO START OF PROCEDURE. MONITOR INTACT WITH CONTINUOUS PULSE OXIMETRY,CAPNOGRAPHY, 3-LEAD EKG, INTERMITTENT BP. SUPPLEMENTAL O2 TO BE TITRATED THROUGHOUT PROCEDURE TO MAINTAIN O2 SATURATION ABOVE 90%. PATIENT DETERMINED TO BE ASA APPROPRIATE FOR PROPOFOL SEDATION PRIOR TO START OF PROCEDURE BY
--- NOTE | 2022-07-15 09:41 | NUR ---
Discharge instructions reviewed with patient. Patient verbalizes understanding. Copy given to patient to take home. Discharged via PT'S OWN ELECTRIC wheelchair to private car for ride home.
== END 2022-07-15 09:42 | disposition home or self-care (01) ==
LOC: ORSCMMR 07:53
PROVIDERS: Internal Medicine Gastroenterology
PROC: 0DJD8ZZ Inspection of Lower Intestinal Tract, Via Natural or Artificial Opening Endoscopic (ICD-10-PCS; principal; 2022-07-15 09:00)
DX: Z12.11 Encounter for screening for malignant neoplasm of colon (principal); I73.9 Peripheral vascular disease, unspecified; Z86.010 Personal history of colon polyps; K57.30 Diverticulosis of large intestine without perforation or abscess without bleeding; E05.90 Thyrotoxicosis, unspecified without thyrotoxic crisis or storm; I10 Essential (primary) hypertension; J44.9 Chronic obstructive pulmonary disease, unspecified; Z89.511 Acquired absence of right leg below knee; F17.210 Nicotine dependence, cigarettes, uncomplicated; Z79.02 Long term (current) use of antithrombotics/antiplatelets; Z79.01 Long term (current) use of anticoagulants; Z79.899 Other long term (current) drug therapy
CPT/HCPCS: J2704; J7120

== ENCOUNTER → 2022-07-26 | Outpatient (CLI) | payer MEDICARE, OTHER ==
[2022-07-27 14:20] LABS: C DIFFICILE DNA NEGATIVE (Negative)
== END | disposition home or self-care (01) ==
LOC: LAB SHORT 09:00 → LAB 09:00
PROVIDERS: Family Medicine
DX: A04.72 Enterocolitis due to Clostridium difficile, not specified as recurrent (principal)
CPT/HCPCS: 87493

== ENCOUNTER 2023-07-20 10:05 | Emergency (ER) | payer MEDICARE, OTHER ==
[~2023-07-20] VITALS: Ht 165.1 cm; Wt 53.1 kg
[2023-07-20] MEDS ORDERED: OxyCODONE 5 mg/Acetamin 325 mg TABLET PO ONE (11:20)
[2023-07-20] MEDS ORDERED: Ketorolac Tromethamine 30mg Vial IM ONE (11:20)
[2023-07-20 11:32] VITALS: BP 146/94
[2023-07-21] MEDS ORDERED: ALBU8HFA2 INH (06:54)
[2023-07-21] MEDS ORDERED: SYMBICORT 16010.2 GM IH (06:54)
[2023-07-21] MEDS ORDERED: Budeprion Xl300 MG PO (06:55)
== END 2023-07-20 12:32 | disposition home or self-care (01) ==
LOC: ER 10:05
DX: S83.411A Sprain of medial collateral ligament of right knee, initial encounter (principal); F41.9 Anxiety disorder, unspecified; M19.90 Unspecified osteoarthritis, unspecified site; J42 Unspecified chronic bronchitis; G89.4 Chronic pain syndrome; I70.213 Atherosclerosis of native arteries of extremities with intermittent claudication, bilateral legs; E78.00 Pure hypercholesterolemia, unspecified; I10 Essential (primary) hypertension; E05.90 Thyrotoxicosis, unspecified without thyrotoxic crisis or storm; H35.30 Unspecified macular degeneration; X50.1XXA Overexertion from prolonged static or awkward postures, initial encounter; Z89.511 Acquired absence of right leg below knee; Z88.8 Allergy status to other drugs, medicaments and biological substances; Z88.5 Allergy status to narcotic agent; Z79.51 Long term (current) use of inhaled steroids; Z79.01 Long term (current) use of anticoagulants; Z79.02 Long term (current) use of antithrombotics/antiplatelets; Z79.899 Other long term (current) drug therapy; Z87.891 Personal history of nicotine dependence
CPT/HCPCS: 73562-RT; 96372; 99283-25; A9270; J1885

== ENCOUNTER 2023-07-21 06:39 | Emergency (ER) | payer MEDICARE, OTHER ==
[~2023-07-21] VITALS: Ht 165.1 cm; Wt 53.1 kg
[2023-07-21 06:45] VITALS: BP 104/75
[2023-07-21] MEDS ORDERED: SYMBICORT 16010.2 GM IH (06:54)
[2023-07-21] MEDS ORDERED: ALBU8HFA2 INH (06:54)
[2023-07-21] MEDS ORDERED: Budeprion Xl300 MG PO (06:55)
== END 2023-07-21 08:58 | disposition home or self-care (01) ==
LOC: ER 06:39
DX: S72.424A Nondisplaced fracture of lateral condyle of right femur, initial encounter for closed fracture (principal); I10 Essential (primary) hypertension; J44.9 Chronic obstructive pulmonary disease, unspecified; R73.03 Prediabetes; E05.90 Thyrotoxicosis, unspecified without thyrotoxic crisis or storm; X58.XXXA Exposure to other specified factors, initial encounter; Z89.511 Acquired absence of right leg below knee; Z87.891 Personal history of nicotine dependence; Z88.5 Allergy status to narcotic agent; Z88.8 Allergy status to other drugs, medicaments and biological substances; Z79.02 Long term (current) use of antithrombotics/antiplatelets; Z79.899 Other long term (current) drug therapy; Z79.51 Long term (current) use of inhaled steroids
CPT/HCPCS: 99283-25

== ENCOUNTER 2024-05-02 10:50 | Day surgery (SDC) | payer MEDICARE, OTHER ==
[~2024-05-02] VITALS: Ht 165.1 cm; Wt 49.5 kg
[~2024-05-02 10:50] MED LIST changes: +ACET325 PO; +ALBU8HFA2 INH; +ATIVAN0.5 MG PO; +Balanced Salt Epinephrine Irrigation Solution 500 mL IR SCH; +Chantix1 MG PO; +DICLOFENAC SODI50 GM TOP; +Diazepam 5 MG Tab PO PRN; +Diazepam 5 MG Tab PO SCH; +Hydroxyzine HCl50 MG PO; +IPRAT-ALBUT 0.5-3 ML NEB; +LISI10 PO; +Lidocaine HCl/Pf 1% 5 ML VIAL XX SCH; +METHI10 PO; +MULTI-VITAMIN1 EAC2; +Moxifloxacin HCL 0.5 MG/0.1 ML 0.4MLSYR RIGHTEYE SCH; +Ondansetron 4 MG SoluTab MM PRN; +PHENYLEPHRINE\\TROPICAMIDE\\TETRACAINE OPHTHALMIC DILATING SOLN RIGHTEYE PRN; +PREG75 PO; +Povidone-Iodine 450 DROP/30 ML Solution ONE; +Povidone-Iodine 450 DROP/30 ML Solution RIGHTEYE SCH; +SYMBICORT 16010.2 GM INH; +TIOT18 INH; +Tetracaine HCl/Pf 0.5% Opth Soln 4 ml ONE; +Triamcinolone Inj Susp 40 MG / ML 1ML Vial INJ SCH; +Triamcinolone Inj Susp 40 MG / ML 1ML Vial ONE; +VENTOLIN HFA INH; +ZINC15 PO
[2024-05-02] MEDS ORDERED: Diazepam 10 MG Tab ONE (11:34)
--- NOTE | 2024-05-02 12:16 | NUR ---
05/02/24 1216 Myrna Bermudez 1147: ANXIETY 06/21 1149: 10 MG VALIUM PO ADMINISTERED PER ORDERS BY ORD.TCR
[2024-05-02] MEDS ORDERED: Tropicamide 1% Opth Soln 15 ML BTL ONE (12:35)
[2024-05-02 12:56] VITALS: BP 142/85
--- NOTE | 2024-05-02 13:21 | NUR ---
05/02/24 1321 KEYLA CLARKE PT WAITING FOR [facility] TO PICK HER UP
== END 2024-05-02 13:21 | disposition home or self-care (01) ==
LOC: ORSCSDS 10:50
PROVIDERS: Ophthalmology
PROC: 08RJ3JZ Replacement of Right Lens with Synthetic Substitute, Percutaneous Approach (ICD-10-PCS; principal; 2024-05-02 12:30)
DX: H25.811 Combined forms of age-related cataract, right eye (principal); I10 Essential (primary) hypertension; J44.9 Chronic obstructive pulmonary disease, unspecified; F41.9 Anxiety disorder, unspecified; E78.00 Pure hypercholesterolemia, unspecified; E05.90 Thyrotoxicosis, unspecified without thyrotoxic crisis or storm; I48.91 Unspecified atrial fibrillation; I73.9 Peripheral vascular disease, unspecified; E78.5 Hyperlipidemia, unspecified; F17.210 Nicotine dependence, cigarettes, uncomplicated; Z79.02 Long term (current) use of antithrombotics/antiplatelets; Z79.899 Other long term (current) drug therapy
CPT/HCPCS: 82947; A9270; J3301; V2632

== ENCOUNTER 2024-05-09 07:21 | Day surgery (SDC) | payer MEDICARE, OTHER ==
[~2024-05-09] VITALS: Ht 165.1 cm; Wt 46.9 kg
[~2024-05-09 07:21] MED LIST changes: +Moxifloxacin HCL 0.5 MG/0.1 ML 0.4MLSYR LEFTEYE SCH; -Moxifloxacin HCL 0.5 MG/0.1 ML 0.4MLSYR RIGHTEYE SCH; +PHENYLEPHRINE\\TROPICAMIDE\\TETRACAINE OPHTHALMIC DILATING SOLN LEFTEYE PRN; -PHENYLEPHRINE\\TROPICAMIDE\\TETRACAINE OPHTHALMIC DILATING SOLN RIGHTEYE PRN; +Povidone-Iodine 450 DROP/30 ML Solution LEFTEYE SCH; -Povidone-Iodine 450 DROP/30 ML Solution RIGHTEYE SCH; -Triamcinolone Inj Susp 40 MG / ML 1ML Vial ONE
[2024-05-09] MEDS ORDERED: Diazepam 10 MG Tab ONE (07:36)
--- NOTE | 2024-05-09 08:17 | NUR ---
05/09/24 0817 Iraida Ponce TETRACAINE: 0800 PLEDGETT: 0801
[2024-05-09] MEDS ORDERED: FentaNYL Citrate 50 MCG/ML 2 ML Injection ONE (08:38)
[2024-05-09] MEDS ORDERED: Midazolam HCl 1MG / ML 2ML Vial ONE (08:38)
[2024-05-09 09:11] VITALS: BP 128/85
== END 2024-05-09 09:24 | disposition home or self-care (01) ==
LOC: ORSCSDS 07:21
PROVIDERS: Ophthalmology
PROC: 08RK3JZ Replacement of Left Lens with Synthetic Substitute, Percutaneous Approach (ICD-10-PCS; principal; 2024-05-09 09:00)
DX: H25.812 Combined forms of age-related cataract, left eye (principal); Z96.1 Presence of intraocular lens; H35.89 Other specified retinal disorders; H35.30 Unspecified macular degeneration; I10 Essential (primary) hypertension; K21.9 Gastro-esophageal reflux disease without esophagitis; I48.91 Unspecified atrial fibrillation; E78.00 Pure hypercholesterolemia, unspecified; F43.10 Post-traumatic stress disorder, unspecified; J44.9 Chronic obstructive pulmonary disease, unspecified; Z85.118 Personal history of other malignant neoplasm of bronchus and lung; Z79.02 Long term (current) use of antithrombotics/antiplatelets; Z79.899 Other long term (current) drug therapy
CPT/HCPCS: A9270; J2250; J3010; V2632

== ENCOUNTER 2024-05-31 11:15 | Day surgery (SDC) | payer MEDICARE, OTHER ==
[~2024-05-31] VITALS: Ht 165.1 cm; Wt 51.0 kg
[2024-05-31] VITALS (12 sets, daily range): BP systolic 131–185; BP diastolic 63–100
[~2024-05-31 11:15] MED LIST changes: -Balanced Salt Epinephrine Irrigation Solution 500 mL IR SCH; -Diazepam 5 MG Tab PO PRN; -Diazepam 5 MG Tab PO SCH; -Lidocaine HCl/Pf 1% 5 ML VIAL XX SCH; -Moxifloxacin HCL 0.5 MG/0.1 ML 0.4MLSYR LEFTEYE SCH; -Ondansetron 4 MG SoluTab MM PRN; -PHENYLEPHRINE\\TROPICAMIDE\\TETRACAINE OPHTHALMIC DILATING SOLN LEFTEYE PRN; -Povidone-Iodine 450 DROP/30 ML Solution LEFTEYE SCH; -Povidone-Iodine 450 DROP/30 ML Solution ONE; +ROXYBOND5 MG PO; -Tetracaine HCl/Pf 0.5% Opth Soln 4 ml ONE; -Triamcinolone Inj Susp 40 MG / ML 1ML Vial INJ SCH
[2024-05-31] MEDS ORDERED: NS 250 ML IV ONE (11:56)
[2024-05-31 11:57] LABS: BASOPHILS ABSOLUTE AUTO 0.05 K/mm3 (0.00-0.23); BASOPHILS PERCENT AUTO 0 % (0-2); EOSINOPHILS ABSOLUTE AUTO 0.19 K/mm3 (0.00-0.68); EOSINOPHILS PERCENT AUTO 1 % (0-6); Hemoglobin 12.2 g/dL (11.5-16.0); IMMATURE GRAN ABSOLUTE AUTO 0.06 K/mm3 (0.00-0.10); IMMATURE GRAN PERCENT AUTO 0 % (0-1); LYMPHOCYTES ABSOLUTE AUTO 3.88 K/mm3 (0.84-5.20); LYMPHOCYTES PERCENT AUTO 26 % (21-46); MONOCYTES ABSOLUTE AUTO 0.64 K/mm3 (0.16-1.47); MONOCYTES PERCENT AUTO 4 % (4-13); Mean Corpuscular HGB 30.3 pg (26.0-34.0); Mean Corpuscular Volume 92 fL (80-100); Mean Platelet Volume 9.2 fL (9.1-12.4); NEUTROPHILS ABSOLUTE AUTO 10.04 K/mm3 (1.96-9.15); NEUTROPHILS PERCENT AUTO 68 % (41-73); Platelet Count 268 K/mm3 (150-400); RDW Coefficient Variation 15.4 % (11.7-14.2); RDW Standard Deviation 51.7 fL (35.1-46.3); Red Blood Cell Count 4.03 M/mm3 (3.80-5.20); White Blood Cell Count 14.86 K/mm3 (4.00-11.30)
[2024-05-31] MEDS ORDERED: NS 2,000 ML IV ONE (11:57)
[2024-05-31] MEDS ORDERED: Heparin Sodium 1000 Units/ML 10ML MDV ONE (11:57)
[2024-05-31 12:21] LABS: Bun/Creatinine Ratio 18.5 (12.0-20.0); Calcium, Blood 9.3 mg/dL (8.5-10.1); Creatinine, Blood 0.76 mg/dL (0.40-1.00); Potassium, Blood 3.3 mmol/L (3.5-5.5)
[2024-05-31 12:23] LABS: International Normalized Ratio 1.01; Prothrombin Time Results 10.8 Sec (9.7-11.5)
[2024-05-31] MEDS ORDERED: Midazolam HCl 1MG / ML 2ML Vial ONE (12:48)
[2024-05-31] MEDS ORDERED: FentaNYL Citrate 50 MCG/ML 2 ML Injection ONE (12:48)
--- NOTE | 2024-05-31 14:28 | NUR ---
PT TO RECOVERY ROOM AT 1345 S/P PERIPHERALANGIOGRAM WITH INTERVENTION. PT SLEEPING, AROUSES EASILY TO VOICE, DENIES C/O PAIN. LEFT GROIN SITE STABLE, SITE SOFT WITHOUT HEMOTOMA, SWELLING, BLEEDING, OR TENDERNESS. PULSES TO LEFT DP/PT +DOPPLER. PT IS HYPERTENSIVE W SBP 180'S, DBP 90'S. NOTIFIED.
[2024-05-31] MEDS ORDERED: HydrALAZINE HCl 20 MG / ML 1ML Vial ONE (14:48)
[2024-05-31] MEDS ORDERED: HydrALAZINE HCl 20 MG / ML 1ML Vial IV ONE (14:50)
[2024-05-31] MEDS ORDERED: OxyCODONE 10/Acetamin 325 TABLET PO ONE (15:15)
--- NOTE | 2024-05-31 15:20 | NUR ---
RIGHT GROIN REMAINS STABLE AND UNCHANGED. +DOPPLER TO LEFT PT/DP. HYDRALAZINE 10MG IV GIVEN PER DR AMANDA Gaona GOOD EFFECT. BP 158/84. PT C/O CHRONIC LOWER BACK PAIN 09/20. ONE TIME DOSE OF PT'S HOME MED/OXYCODONE 10MG ORDERED BY DR PATEL.
--- NOTE | 2024-05-31 15:59 | NUR ---
HOB AT 15 DEGREES AT 1445, HOB 30 AT 1515. HOB AT 45 DEGREES AT 1600. RIGHT GROIN REMAINS STABLE. + DOPPLER TO LEFT DP/PT. BP REMAINS STABLE. PT STATES THAT PAIN HAS IMPROVED WITH OXYCODONE. PAIN NOW 5/6 OUT OF TEN. PT HAD AN ELEVATED WBC ON LABS THIS AM. PT DOES HAVE A HISTORY OF ELEVATED WBC. PT STATES THAT HER MOLAR FELL OUT LAST TUESDAY. LEFT UPPER MOLAR AREA RED AND SWOLLEN, PT STATES THE AREA IS TENDER. PT CALLED PCP TO ASK FOR APPOINTMENT; DR BUTLER'S OFFICE TO CALL HER BACK.
--- NOTE | 2024-05-31 16:42 | NUR ---
PT OOB TO BATHROOM AT 1620. PT RICKEY WELL. GROIN CHECKED AFTER PT DRESSED. RIGHT GROIN REMAINS STABLE AND UNCHANGED. VSS. VERBAL AND WRITTEN DC INSTRUCTIONS GIVEN TO PT WITH CLEAR UNDERSTANDING. PT DC'D HOME IN STABLE CONDITION AT 1630. PT ESCORTED OUT VIA WHEELCHAIR AND BROUGHT TO TRANSPORT SERVICES TO TRANSPORT PT HOME.
== END 2024-05-31 16:46 | disposition home or self-care (01) ==
LOC: MHTC 11:15
PROVIDERS: Radiology Diagnostic Radiology
DX: I70.212 Atherosclerosis of native arteries of extremities with intermittent claudication, left leg (principal); I10 Essential (primary) hypertension; E78.5 Hyperlipidemia, unspecified; J44.9 Chronic obstructive pulmonary disease, unspecified; F17.210 Nicotine dependence, cigarettes, uncomplicated; Z88.5 Allergy status to narcotic agent; Z88.8 Allergy status to other drugs, medicaments and biological substances; Z79.01 Long term (current) use of anticoagulants; Z79.899 Other long term (current) drug therapy
CPT/HCPCS: 76937; 80048; 85025; 85610; 99152; 99153; A9270; C1725; C1760; C1769; C1887; C1894; J0360; J1644; J2250; J3010; J7030; J7050; Q9967